=== PATIENT | female | born 1990 | race Caucasian/White ===

== ENCOUNTER 2019-07-04 14:10 | Emergency (ER) | payer MEDICARE, MEDICAID ==
[2019-07-04 15:11] VITALS: BP 125/80; PULSE 64
--- NOTE | 2019-07-04 16:47 | CR ---
Abdomen: Supine view of the abdomen was obtained as well as upright study. Gas dilated loops of small bowel are seen. No free air is seen. No acute osseous finding is seen. No abnormal calcifications are seen. Increased density is seen within the left retrocardiac region which is stable from prior chest x-ray of 09/16/14 and therefore is felt to be chronic. Impression: 1. Gas dilated small bowel loops either due to swallowed air or possibly developing small bowel obstruction. 2. No free air is seen. Other findings as noted above. Diagnostic code #3 This report was dictated in [place] Standard Time
[2019-07-04] MEDS ORDERED: Sodium Chloride 0.9% 10 ML Syringe FLUSH PRN ×2 (17:27→19:28)
[2019-07-04] MEDS ORDERED: Sodium Chloride 0.9% 1,000 ML IV ONE (17:27)
[2019-07-04] MEDS ORDERED: Ondansetron 4 MG/2 ML SDV IVPUSH ONE (17:27)
--- NOTE | 2019-07-04 17:39 | EDM.PDOC ---
ED HPI GENERAL MEDICAL PROBLEM - General Chief Complaint: Gastrointestinal Problem Stated Complaint: BOWEL PROBLEMS Time Seen by Provider: 07/04/19 16:49 Source of Information: Reports: Patient, Family (parents), RN Notes Reviewed History Limitations: Reports: No Limitations - History of Present Illness INITIAL COMMENTS - FREE TEXT/NARRATIVE: Patient is a 28-year-old female who presents to the ED with her mother and father for evaluation of some bowel issues. Patient has a history of Down syndrome but lives with her mother and father. The patient's mother notes that she has had issues with constipation her whole entire life, but they state within the last month she began to vomit at nighttime which is new for her. They try to get her in to be evaluated by her primary care provider, Dr. Clayton but were unable to acquire an appointment. The mother and father notes that the patient vomited last night, and that it was brown and look like there was a ball of stool that came up with it. Patient is not complaining of any abdominal pain, however she states that her throat hurts from vomiting. The patient does not have a history of any bowel obstructions, but the mother states that the patient has not had a good regular soft bowel movement for months. She states when she does go to the bathroom she goes in just a little bit's. Mother states that the patient has been very lethargic, she says that she sleeps quite a bit and does not wake up till mid afternoon, has maybe a fried egg sandwich and some Cheerios for food and that is about all she eats. Mother notes that the patient has lost around 20 pounds since this last fall. The mother did note that this last fall she did have a change of caliber in her stool, and she states is very thin and was patrick in color. Patient's not had any further work-up for these bowel issues. Mother notes that the patient does keep a water bottle with her, however she does not think that she drinks near enough water on a daily basis. She is not given soda for liquid intake. - Related Data Allergies Allergy/AdvReac Type Severity Reaction Status Date / Time No Known Allergies Allergy Verified 07/04/19 15:11 Home Meds: Home Meds Ascorbic Acid [Vitamin C] 1,500 - 2,000 mg PO DAILY 07/04/19 [History] Magnesium Glycinate [Mag Glycinate] 300 mg PO DAILY 07/04/19 [History] Niacinamide [Niacin] 500 mg PO DAILY 07/04/19 [History] PARoxetine [Paxil] 10 mg PO DAILY 07/04/19 [History] Thyroid,Pork [Nature-Throid] 65 mg PO DAILY 07/04/19 [History] Past Medical History HEENT History: Reports: Hard of Hearing Cardiovascular History: Reports: Congenital Septal Defect, Other (See Below) Other Cardiovascular History: ASD, VSD Gastrointestinal History: Reports: Chronic Constipation Psychiatric History: Reports: Other (See Below) Other Psychiatric History: Down's Syndrome Endocrine/Metabolic History: Reports: Other (See Below) Other Endocrine/Metabolic History: Jailene's Social & Family History - Tobacco Use Smoking Status *Q: Never Smoker - Caffeine Use Caffeine Use: Reports: None - Recreational Drug Use Recreational Drug Use: No ED ROS GENERAL - Review of Systems Review Of Systems: See Below Constitutional: Reports: Weight Loss (20lb in 6 months). Denies: Fever, Chills HEENT: Reports: Throat Pain Respiratory: Denies: Shortness of Breath, Cough Cardiovascular: Denies: Chest Pain GI/Abdominal: Reports: Constipation, Decreased Appetite, Nausea, Vomiting. Denies: Abdominal Pain, Diarrhea, Hematemesis : Denies: Dysuria ED EXAM, GI/ABD - Physical Exam Exam: See Below Exam Limited By: No Limitations General Appearance: Alert, WD/WN, No Apparent Distress Eyes: Bilateral: Normal Appearance Ears: Normal External Exam Nose: Normal Inspection Throat/Mouth: Normal Inspection, Normal Lips, Normal Teeth, Normal Gums, Normal Oropharynx, Normal Voice, No Airway Compromise Head: Atraumatic, Normocephalic Neck: Normal Inspection Respiratory/Chest: No Respiratory Distress, Lungs Clear, Normal Breath Sounds, No Accessory Muscle Use, Chest Non-Tender Cardiovascular: Normal Peripheral Pulses, Regular Rate, Rhythm, No Murmur GI/Abdominal Exam: Soft, Non-Tender, No Distention, No Mass, Abnormal Bowel Sounds (high pitched tinkling) Extremities: Normal Inspection, Normal Capillary Refill Neurological: Alert, Normal Cognition, No Motor/Sensory Deficits Psychiatric: Normal Affect, Normal Mood Skin Exam: Warm, Dry, Intact, Normal Color, No Rash Course - Vital Signs Last Recorded V/S: Last Vital Signs Temp 97.2 F 07/04/19 15:07 Pulse 64 07/04/19 15:07 Resp 16 07/04/19 15:07 BP 125/80 07/04/19 15:07 Pulse Ox 99 07/04/19 15:07 - Orders/Labs/Meds Orders: Active Orders 24 hr Category Date Time Status Peripheral IV Care [RC] . DIRECTED Care 07/04/19 17:30 Ordered Sodium Chloride 0.9% [Saline Flush] Med 07/04/19 17:27 Ordered 10 ml FLUSH ASDIRECTED PRN Sodium Chloride 0.9% [Saline Flush] Med 07/04/19 19:28 Active 10 ml FLUSH ONETIME PRN Peripheral IV Insertion Adult [OM.PC] Stat Oth 07/04/19 17:27 Ordered Medication Orders Sodium Chloride (Saline Flush) 10 ml FLUSH ASDIRECTED PRN PRN Reason: Keep Vein Open Last Admin: 07/04/19 17:43 Dose: 10 ml Sodium Chloride (Saline Flush) 10 ml FLUSH ONETIME PRN PRN Reason: IV FLUSH Last Admin: 07/04/19 19:40 Dose: 10 ml Labs: Laboratory Tests 07/04/19 07/04/19 Range/Units 17:40 17:40 WBC 8.44 (3.98-10.04) K/mm3 RBC 4.24 (3.98-5.22) M/mm3 Hgb 13.3 (11.2-15.7) gm/dl Hct 40.5 (34.1-44.9) % MCV 95.5 H (79.4-94.8) fl MCH 31.4 (25.6-32.2) pg MCHC 32.8 (32.2-35.5) g/dl RDW Std Deviation 50.9 H (36.4-46.3) fL Plt Count 209 (182-369) K/mm3 MPV 10.5 (9.4-12.3) fl Neut % (Auto) 44.9 (34.0-71.1) % Lymph % (Auto) 41.5 (19.3-51.7) % [place] % (Auto) 8.5 (4.7-12.5) % Eos % (Auto) 4.1 (0.7-5.8) Baso % (Auto) 0.9 (0.1-1.2) % Neut # (Auto) 3.78 (1.56-6.13) K/mm3 Lymph # (Auto) 3.50 (1.18-3.74) K/mm3 [place] # (Auto) 0.72 H (0.24-0.36) K/mm3 Eos # (Auto) 0.35 (0.04-0.36) K/mm3 Baso # (Auto) 0.08 (0.01-0.08) K/mm3 Sodium 138 (136-145) mEq/L Potassium 4.4 (3.5-5.1) mEq/L Chloride 105 (98-107) mEq/L Carbon Dioxide 26 (21-32) mEq/L Anion Gap 11.4 (5-15) BUN 21 H (7-18) mg/dL Creatinine 1.0 (0.55-1.02) mg/dL Est Cr Clr Drug Dosing TNP Estimated GFR (MDRD) > 60 (>60) mL/min BUN/Creatinine Ratio 21.0 H (14-18) Glucose 80 (74-106) mg/dL Calcium 9.2 (8.5-10.1) mg/dL Total Bilirubin 0.7 (0.2-1.0) mg/dL AST 18 (15-37) U/L ALT 21 (14-59) U/L Alkaline Phosphatase 48 (46-116) U/L Total Protein 8.0 (6.4-8.2) g/dl Albumin 3.5 (3.4-5.0) g/dl Globulin 4.5 gm/dL Albumin/Globulin Ratio 0.8 L (1-2) Meds: Medications Generic Name Dose Route Start Last Admin Trade Name Freq PRN Reason Stop Dose Admin Sodium Chloride 10 ml 07/04/19 17:27 07/04/19 17:43 Saline Flush FLUSH 10 ml ASDIRECTED PRN Administration Keep Vein Open Sodium Chloride 10 ml 07/04/19 19:28 07/04/19 19:40 Saline Flush FLUSH 10 ml ONETIME PRN Administration IV FLUSH Discontinued Medications Generic Name Dose Route Start Last Admin Trade Name Freq PRN Reason Stop Dose Admin Diatrizoate Meglum/Diatrizoate Sod 120 ml 07/04/19 19:28 07/04/19 19:41 Gastrografin 37% PO 07/04/19 19:29 90 ml ONETIME ONE Administration Sodium Chloride 1,000 mls @ 999 mls/hr 07/04/19 17:27 07/04/19 17:43 Normal Saline IV 07/04/19 18:27 999 mls/hr ONETIME ONE Administration Iopamidol 100 ml 07/04/19 19:28 07/04/19 19:40 Isovue-300 (61%) IVPUSH 07/04/19 19:29 100 ml ONETIME ONE Administration Ondansetron HCl 4 mg 07/04/19 17:27 07/04/19 17:43 Zofran IVPUSH 07/04/19 17:28 4 mg ONETIME ONE Administration - Re-Assessments/Exams Free Text/Narrative Re-Assessment/Exam: 07/04/19 17:42 Patient presents to the ED for the evaluation of a possible bowel obstruction versus constipation. Abdominal x-ray was obtained at time of triage, and does demonstrate gas dilated small bowel loops either due to swallowed air or possibly developing small bowel obstruction, with her symptoms I do believe that the small bowel obstruction is a possibility. I did order some labs and an abdominal pelvis CT with IV and oral contrast for further evaluation. Patient will be given some IV fluids and IV Zofran as well for management. 07/04/19 20:22 Labs are back and unremarkable, CT is also back and demonstrates no findings of a small bowel obstruction, however she does have a very small caliber of her descending colon and sigmoid colon without bowel wall thickening, findings presumably represent lack of distention. Please correlate if the patient has a history of normal stooling. There was a consolidating density within the left lower lung as mentioned on the abdominal x-ray that most likely appears chronic although difficult to completely exclude reappearance of pneumonia if the patient has infectious symptoms, she is not had any fevers or chills, or cough that would suggest a pneumonia. I do not believe it is a pneumonia and very well could be chronic changes. I did call Dr. Cisneros, our surgeon on-call and went over the CT results, and she was able to review the CT as she was in-house for another case, and states that she believes that the bowel findings are somewhat bothersome and would recommend an outpatient colonoscopy and have them follow-up with her in clinic sometime this week to have a procedure scheduled. I did go over this with the parents, and they are okay with this plan at this time. I will send the patient home with some Zofran and other recommendations. Departure - Departure Time of Disposition: 20:23 Disposition: Home, Self-Care 01 Condition: Fair Clinical Impression: Nausea and vomiting Qualifiers: Vomiting type: unspecified Vomiting Intractability: non-intractable Qualified Code(s): R11.2 - Nausea with vomiting, unspecified Constipation Qualifiers: Constipation type: unspecified constipation type Qualified Code(s): K59.00 - Constipation, unspecified - Discharge Information *PRESCRIPTION DRUG MONITORING PROGRAM REVIEWED*: No *COPY OF PRESCRIPTION DRUG MONITORING REPORT IN PATIENT [place]: No Instructions: High-Fiber Diet Referrals: Tamiko Toledo MD [Primary Care Provider] - Forms: ED Department Discharge Additional Instructions: You were evaluated in the ER today regarding your nausea and vomiting and constipation. You had some laboratory evaluation and some imaging done today, that showed there was no sign of a bowel obstruction, but does raise the findings of a small caliber of your descending colon and sigmoid colon, the surgeon on-call, Dr. Cisneros was consulted on your case, and recommends calling her office at [phone] and following up with her in clinic for a possible outpatient colonoscopy for further evaluation. The oral contrast were given today should help provide a bowel cleanse and you should have a few good bowel movements. Recommend you start taking MiraLAX on a daily basis, you may also benefit from trying to increase some probiotics into your regular diet. You were given You were given some tablets of Zofran, please take 1 tablet dissolvable under your tongue every 8 hours as needed for further nausea. Please return to the ER at any time however if your symptoms change or worsen. Sepsis Event Note - Evaluation Sepsis Screening Result: No Definite Risk - Focused Exam Vital Signs: Vital Signs Temp Pulse Resp BP Pulse Ox 07/04/19 15:07 97.2 F 64 16 125/80 99 Date Exam was Performed: 07/04/19 Time Exam was Performed: 20:22 - My Orders Last 24 Hours: My Active Orders 07/04/19 17:27 Sodium Chloride 0.9% [Saline Flush] 10 ml FLUSH ASDIRECTED PRN Peripheral IV Insertion Adult [OM.PC] Stat 07/04/19 17:30 Peripheral IV Care [RC] . DIRECTED 07/04/19 19:28 Sodium Chloride 0.9% [Saline Flush] 10 ml FLUSH ONETIME PRN - Assessment/Plan Last 24 Hours: My Active Orders 07/04/19 17:27 Sodium Chloride 0.9% [Saline Flush] 10 ml FLUSH ASDIRECTED PRN Peripheral IV Insertion Adult [OM.PC] Stat 07/04/19 17:30 Peripheral IV Care [RC] . DIRECTED 07/04/19 19:28 Sodium Chloride 0.9% [Saline Flush] 10 ml FLUSH ONETIME PRN
[2019-07-04] MEDS ORDERED: Iopamidol 612 MG/ML 100 ML Bottle IVPUSH ONE (19:28)
[2019-07-04] MEDS ORDERED: Diatrizoate Meglumine/Diatrizoate Sodium 37% 120 ML Bottle PO ONE (19:28)
--- NOTE | 2019-07-04 20:07 | CT ---
CT abdomen and pelvis Technique: Multiple axial sections were obtained from above the dome of the diaphragm inferiorly through the pubic symphysis. Intravenous and oral contrast was utilized. Consolidating density is noted within the left lung base. As noted on abdominal x-ray, this this appears to be similar to prior chest x-ray and presumably is chronic but please exclude any acute infectious symptoms for this to represent reappearance of a pneumonia. Liver contains no focal parenchymal abnormality. Spleen appears within normal limits. Small hiatal hernia is seen with mild thickening of the distal esophageal wall likely representing chronic reflux. Kidneys show symmetric contrast enhancement. Adrenal glands show no discrete nodule. Pancreas is within normal limits. Aorta shows no aneurysm. No retroperitoneal adenopathy or mesenteric abnormalities are seen. No pelvic mass or adenopathy is seen. The descending colon and sigmoid colon are extremely small in caliber. Uncertain if this is pathologic or due to complete lack of distention. I do not see any wall thickening. No pelvic mass or adenopathy is appreciated. No free fluid or inflammatory change is noted. Appendix not visualized with certainty. Delayed images shows a small amount of contrast within the bladder. Bone window settings were reviewed which appear within normal limits for the patient's age. Impression: 1. No findings of small bowel obstruction. 2. Very small caliber of descending colon and sigmoid colon without bowel wall thickening. Findings presumably represent lack of distention. Please correlate that patient has history of normal stooling. 3. Consolidating density within left lower lung. As mentioned on abdominal x-ray, this is most likely chronic although difficult to completely exclude reappearance of pneumonia if patient has infectious symptoms. 4. Other findings as noted above. Diagnostic code #3 Study was dictated in [place] Standard Time
== END 2019-07-04 20:35 | disposition home or self-care (01) ==
LOC: JD.ED 14:10
DX: R11.2 Nausea with vomiting, unspecified (principal); K59.00 Constipation, unspecified
CPT/HCPCS: 36415; 74019; 74177; 80053; 85025; 96361; 96374; 99284; J2405; J7030; Q9963; Q9967; 99283

== ENCOUNTER 2019-07-13 08:55 | Day surgery (SDC) | payer MEDICARE, MEDICAID ==
[~2019-07-13 08:55] MED LIST: Lactated Ringers 1,000 ML IV SCH; Lidocaine 1%/Sod Bicarbonate in NS 8.4% 1 ML Syringe IDERM PRN; Sodium Chloride 0.9% 10 ML Syringe FLUSH PRN
[2019-07-13] MEDS ORDERED: Midazolam 1 MG/ML 2 ML SDV ONE (10:01)
[2019-07-13] MEDS ORDERED: Lidocaine 1% 4 ML ONE (10:01)
[2019-07-13] MEDS ORDERED: Propofol 200 MG/20 ML SDV ONE (10:01)
[2019-07-13] MEDS ORDERED: fentaNYL 100 MCG/2 ML SDV ONE (10:03)
[2019-07-13] MEDS ORDERED: Lidocaine 1% 2 ML ONE (10:11)
--- NOTE | 2019-07-13 10:36 | PCM.PREANE ---
Preanesthetic Assessment - Anesthesia/Transfusion/Family Hx Anesthesia History: Prior Anesthesia Without Reaction Family History of Anesthesia Reaction: No - Review of Systems General: No Symptoms Pulmonary: No Symptoms Cardiovascular: No Symptoms, Other (History of small PDA, VSD, ASD with small left to right shunt, preserved EF of 75%, stable since . Follows with cardiology every 2 years. ) Gastrointestinal: Nausea (None recently, appears to dry heave, not sure if it is a nervous tic or nausea. ) Neurological: No Symptoms (Pleasent and cooperative.), Other (Nervous Tics, Trisomy 21) Other: Reports: Thyroid Problems ([place]), Depression, Anxiety - Physical Assessment NPO Status Date: 07/12/19 NPO Status Time: 21:30 Vital Signs: Last Vital Signs Temp 36.3 C 07/13/19 09:15 Pulse 66 07/13/19 09:15 Resp 16 07/13/19 09:15 BP 111/61 07/13/19 09:15 Pulse Ox 97 07/13/19 09:15 Height: 1.35 m Weight: 48.534 kg ASA Class: 3 Mental Status: Alert & Oriented x3 Airway Class: Mallampati = 2 Dentition: Reports: Normal Dentition, Caries Thyro-Mental Finger Breadths: 2 Mouth Opening Finger Breadths: 3 ROM/Head Extension: Other (Cervical Spine xrays have been done in the past per her parents with no instability noted.) Lungs: Clear to Auscultation, Normal Respiratory Effort Cardiovascular: Regular Rate, Regular Rhythm, Murmurs (+) - Imaging/EKG Impressions: Sinus Rhythm with PVC at 66 bpm Probable left atrial enlargement. - Allergies Allergies/Adverse Reactions: Allergies Allergy/AdvReac Type Severity Reaction Status Date / Time No Known Allergies Allergy Verified 07/12/19 15:55 - Acknowledgements Anesthesia Type Planned: MAC Pt an Appropriate Candidate for the Planned Anesthesia: Yes Alternatives and Risks of Anesthesia Discussed w Pt/Guardian: Yes Pt/Guardian Understands and Agrees with Anesthesia Plan: Yes PreAnesthesia Questionnaire HEENT History: Reports: Cataract, Hard of Hearing Cardiovascular History: Reports: Congenital Septal Defect, Heart Murmur, [place], Other (See Below) Other Cardiovascular History: ASD, VSD Respiratory History: Reports: None Gastrointestinal History: Reports: Chronic Constipation Genitourinary History: Reports: None [employer] History: Reports: None Musculoskeletal History: Reports: None Neurological History: Reports: None Psychiatric History: Reports: Anxiety, Depression, Other (See Below) Other Psychiatric History: Down's Syndrome, tc disorder Endocrine/Metabolic History: Reports: Other (See Below) Other Endocrine/Metabolic History: Jailene's, elevated TSH Hematologic History: Reports: None Immunologic History: Reports: None Oncologic (Cancer) History: Reports: None Dermatologic History: Reports: None - Infectious Disease History Infectious Disease History: Reports: None - Past Surgical History Head Surgeries/Procedures: Reports: None HEENT Surgical History: Reports: Cataract Surgery, Myringotomy w Tube(s) Cardiovascular Surgical History: Reports: None Respiratory Surgical History: Reports: None GI Surgical History: Reports: None Female Surgical History: Reports: None Male Surgical History: Reports: None Endocrine Surgical History: Reports: None Neurological Surgical History: Reports: None Musculoskeletal Surgical History: Reports: None Oncologic Surgical History: Reports: None Dermatological Surgical History: Reports: None - SUBSTANCE USE Smoking Status *Q: Never Smoker Recreational Drug Use History: No - HOME MEDS Home Medications: Home Meds Ascorbic Acid [Vitamin C] 1,500 - 2,000 mg PO DAILY 07/04/19 [History] Magnesium Glycinate [Mag Glycinate] 300 mg PO DAILY 07/04/19 [History] Niacinamide [Niacin] 500 mg PO DAILY 07/04/19 [History] Ondansetron [Zofran ODT] 4 mg PO Q8H PRN #15 tab.dis 07/04/19 [Rx] PARoxetine [Paxil] 10 mg PO DAILY 07/04/19 [History] Thyroid,Pork [Nature-Throid] 65 mg PO DAILY 07/04/19 [History] Lactobacillus Combination No.4 [Probiotic] 1 cap PO DAILY 07/12/19 [History] - CURRENT (IN HOUSE) MEDS Current Meds: Current Medications Lactated Ringer's (Ringers, Lactated) 1,000 mls @ 125 mls/hr IV ASDIRECTED LISA Stop: 07/13/19 23:00 Lidocaine/Sodium Bicarbonate (Buffered Lidocaine 1% In Ns 8.4%) 0.25 ml IDERM ONETIME PRN PRN Reason: Prior to IV Start Stop: 07/13/19 18:00 Sodium Chloride (Saline Flush) 10 ml FLUSH ASDIRECTED PRN PRN Reason: Keep Vein Open Stop: 07/13/19 18:00 Discontinued Medications Fentanyl (Sublimaze) Confirm Administered Dose 100 mcg .ROUTE .STK-MED ONE Stop: 07/13/19 10:04 Lidocaine HCl (Xylocaine-Mpf 1%) Confirm Administered Dose 4 mls @ as directed .ROUTE .STK-MED ONE Stop: 07/13/19 10:02 Lidocaine HCl (Xylocaine-Mpf 1%) Confirm Administered Dose 2 mls @ as directed .ROUTE .STK-MED ONE Stop: 07/13/19 10:12 Midazolam HCl (Versed 1 Mg/Ml) Confirm Administered Dose 2 mg .ROUTE .STK-MED ONE Stop: 07/13/19 10:02 Propofol (Diprivan 20 Ml) Confirm Administered Dose 400 mg .ROUTE .STK-MED ONE Stop: 07/13/19 10:02
[2019-07-13] MEDS ORDERED: Simethicone Drops 40 MG/0.6 ML 30 ML Bottle ONE (11:08)
[2019-07-13] MEDS ORDERED: Glycopyrrolate 0.2 MG/ML SDV ONE (11:27)
--- NOTE | 2019-07-13 11:47 | PCM48HPAN ---
Post Anesthesia Note - EVALUATION WITHIN 48HRS OF ANESTHETIC Vital Signs in Normal Range: Yes Patient Participated in Evaluation: Yes Respiratory Function Stable: Yes Airway Patent: Yes Cardiovascular Function Stable: Yes Hydration Status Stable: Yes Pain Control Satisfactory: Yes Nausea and Vomiting Control Satisfactory: Yes Mental Status Recovered: Yes Vital Signs: Last Vital Signs Temp 36.3 C 07/13/19 09:15 Pulse 66 07/13/19 09:15 Resp 16 07/13/19 09:15 BP 111/61 07/13/19 09:15 Pulse Ox 97 07/13/19 09:15 1137 95/61 83 14 99% 97.1F
--- NOTE | 2019-07-13 11:51 | PCM.PRNOTE ---
- Free Text/Narrative Note: Operative Report Date of Procedure: July 13, 2019 Pre Op Diagnosis: Nausea, vomiting, change in stool caliber Post-Op Diagnosis: Vame Operative Procedures: 1. EGD with biopsy 2. Colonoscopy to the cecum with biopsy Primary Surgeon: Amelie Hickey MD Anesthesia Provider: Taylor Ziegler CRNA Anesthesia Technique: MAC IV Fluid Replacement, Intraop: 800cc crystalloid Output, Urine Amount: 0cc EBL in mLs: 0cc Findings: 1. Distal Esophagitis 2. irregular GE junction 3. Gastritis 4. Duodenitis Specimens: 1. Distal esophagus 2. GE junction 3. Gastric antrum 4. Duodenum 5. Transverse colon biopsy 6. Rectal biopsy Drain/Tubes: None Indication: The patient is a 28-year-old lady who presented to the clinic with persistent symptoms of nausea, vomiting, and thin, ribbon-like stools. The patient's parents reported symptoms of unintentional weight loss symptoms the onset of symptoms. The patient was consented for a diagnostic EGD and colonoscopy. Risks of bleeding, and perforation were discussed, and the patient agreed to the risks and wished to proceed. Description of the procedure: The patient was taken back to the endoscopy suite, and placed in the left lateral decubitus position. A bite block was placed. The patient was sedated with MAC anesthesia. The Olympus video endoscope was inserted into the oropharynx and guided under direct vision into the esophagus, stomach, and duodenum. The duodenal bulb showed villous flattening as well as increased erythema. Biopsies were taken here with the cold biopsy forceps. The second portion of the duodenum w remarkable. The scope was withdrawn to the gastric antrum, each was inspected and cold biopsy forceps were used to take tissue samples for H. pylori. Was evidence of gastritis with stigmata of recent bleeding. The scope was then retroflexed. There a small amount of bilious fluid , which was suctioned. Very shallow erosions seen in the gastric antrum, but no ulcers were noted. The scope was withdrawn to the esophagus. The GE junction had a very irregular appearance with heaped up tissue. Biopsies were taken with a cold biopsy forceps in 4 quadrants. There was distal esophagitis noted with changes in 4 separate mucosal folds with superficial erosion. The endoscope was then withdrawn. Next, anorectal examination was performed. No lesions, masses or hemorrhoids were noted externally or on palpation. The scope was placed into the rectum and advanced to cecum. Upon reaching the cecum, and the patients cecum was entered. There was mild tortuosity of the colon. The ileocecal valve was well visualized and the appendiceal orifice identified. At this point, the scope was slowly withdrawn, paying attention to the mucosa. The patient had excellent bowel prep, greater than 95% of the mucosa was visible. Common the lymphatic tissue was noted in the transverse colon, and biopsies were taken using a cold biopsy forceps. In the rectum, tissue in all biopsies were taken with the cold biopsy forceps. The scope was retroflexed and some normal-appearing hemorrhoidal tissue was noted. The scope was placed back in the lumen and excess air was aspirated. The scope was removed. The patient tolerated the procedure very well. Complications: None apparent Condition: The patient was transported to PACU in stable condition. Amelie Hickey MD General Surgery
--- NOTE | 2019-07-13 11:51 | PCM.OPNOTE ---
- General Post-Op/Procedure Note Date of Surgery/Procedure: 07/13/19 Operative Procedure(s): EGD and colonoscopy Findings: 1. Distal Esophagitis 2. irregular GE junction 3. Gastritis 4. Duodenitis Pre Op Diagnosis: Nausea, vomiting, change in stool caliber Post-Op Diagnosis: same Anesthesia Technique: MAC Primary Surgeon: Amelie Hickey Anesthesia Provider: Taylor Zimmerman Pathology: 1. Duodenum biopsy 2. Gastric antrum biopsy 3. GE junction biopsy 4. Distal esophagus biopsy 5. Transverse colon biopsy 6. Rectal biopsy Fluid Replacement, Intraop: 800 Output, Urine Amount: 0 EBL in mLs: 0 Complications: None apparent Condition: Good
[2019-07-13] MEDS ORDERED: Acetaminophen Soln 650 MG/20.3 ML UD Cup PO PRN (12:07)
[2019-07-13 13:19] VITALS: BP 96/52; PULSE 81
== END 2019-07-13 13:05 | disposition home or self-care (01) ==
LOC: JD.SDS 08:55
PROVIDERS: ATTEND Surgery
DX: K29.50 Unspecified chronic gastritis without bleeding (principal); K29.80 Duodenitis without bleeding; K20.9 Esophagitis, unspecified; K25.9 Gastric ulcer, unspecified as acute or chronic, without hemorrhage or perforation; Q43.8 Other specified congenital malformations of intestine; K64.9 Unspecified hemorrhoids; Q90.9 Down syndrome, unspecified; Q21.1 Atrial septal defect; I25.2 Old myocardial infarction; Q21.0 Ventricular septal defect; F41.9 Anxiety disorder, unspecified; F32.9 Major depressive disorder, single episode, unspecified; E06.3 Autoimmune thyroiditis; Z79.899 Other long term (current) drug therapy
CPT/HCPCS: 43239; 45380; 93005; A9270; J2001; J2250; J2704; J3010; J3490; J7120; 00813; 88305; 88342

== ENCOUNTER 2019-09-15 13:13 | Observation (INO) | payer MEDICARE, MEDICAID ==
[2019-09-15] MEDS ORDERED: Sodium Chloride 0.9% 10 ML Syringe FLUSH PRN (13:33)
[2019-09-15] MEDS ORDERED: Sodium Chloride 0.9% 1,000 ML IV ONE (13:34)
[2019-09-15] MEDS ORDERED: Metoclopramide 10 MG/2 ML SDV IVPUSH ONE (13:36)
--- NOTE | 2019-09-15 14:10 | EDM.PDOC ---
ED HPI GENERAL MEDICAL PROBLEM - General Chief Complaint: Gastrointestinal Problem Stated Complaint: STOMACH ISSUES Time Seen by Provider: 09/15/19 13:22 Source of Information: Reports: Patient, Family (mother), Old Records (visit from 07/04/19) History Limitations: Reports: No Limitations - History of Present Illness INITIAL COMMENTS - FREE TEXT/NARRATIVE: Patient is a 29-year-old female who presents to the ED for ongoing GI issues. The patient does have a history of Down syndrome, and lives with her mother and father. Mother notes that the patient has been ill since June, was seen in this ER on July 04, had abdominal x-rays and a CT, that demonstrated a slight thickening of the bowel. Patient did have a follow-up EGD and colonoscopy, and everything was within normal limits. Patient has been doctoring with Dr. Clayton from [facility] for ongoing symptoms. Mother states that the patient eats small amounts of soft foods like oatmeal, yogurt, ice cream, but has not eaten a real solid meal for quite some time. They note that she has lost 20 pounds over the last 6 weeks. The patient was in the clinic at [facility] twice this last week for IV fluids, and antinausea medications. 1 on Thursday and 1 time on Thursday. This helped symptoms for a little while, but then the patient is right back complaining shortly after they leave. Mother states that she tried making a pancake for her, that the patient chewed it up and then spit it out. Mother states that the child has not been able to keep any sort of solid food down. Mother states that the child did have a bowel movement 2 days ago, these were very small in nature. Mother notes that the patient has been getting up some stringy brown stuff in her emesis as well, but denies any sort of obvious blood. Patient is not complaining of any abdomen pain. Mother states that the patient has not had any fever or chills, shortness of breath, chest pain or cough. Dr. Clayton did try her on some outpatient Zofran and Ativan for management, but this did not seem to help much. - Related Data Allergies Allergy/AdvReac Type Severity Reaction Status Date / Time No Known Allergies Allergy Verified 07/12/19 15:55 Home Meds: Home Meds Ondansetron [Zofran ODT] 4 mg PO Q8H PRN #15 tab.dis 07/04/19 [Rx] Thyroid,Pork [Nature-Throid] 65 mg PO DAILY 07/04/19 [History] Omeprazole 20 mg PO ACBREAKFAST 30 Days #30 cap.sr 07/13/19 [Rx] Gabapentin [Neurontin] 300 mg PO DAILY 09/15/19 [History] Past Medical History HEENT History: Reports: Cataract, Hard of Hearing Cardiovascular History: Reports: Congenital Septal Defect, Heart Murmur, GA, Other (See Below) Other Cardiovascular History: ASD, VSD Gastrointestinal History: Reports: Chronic Constipation Psychiatric History: Reports: Anxiety, Depression, Other (See Below) Other Psychiatric History: Down's Syndrome, tc disorder Endocrine/Metabolic History: Reports: Other (See Below) Other Endocrine/Metabolic History: Jailene's, elevated TSH - Past Surgical History HEENT Surgical History: Reports: Cataract Surgery, Myringotomy w Tube(s) Social & Family History - Tobacco Use Second Hand Smoke Exposure: No - Caffeine Use Caffeine Use: Reports: None ED ROS GENERAL - Review of Systems Review Of Systems: Comprehensive ROS is negative, except as noted in HPI. ED EXAM, GI/ABD - Physical Exam Exam: See Below Exam Limited By: No Limitations General Appearance: Alert, WD/WN, No Apparent Distress (pt has fits where it appears that she is nauseous, happens every few minutes) Ears: Normal External Exam Nose: Normal Inspection Throat/Mouth: Normal Inspection, Normal Lips, Normal Teeth, Normal Gums, Normal Oropharynx, Normal Voice, No Airway Compromise Head: Atraumatic, Normocephalic Neck: Normal Inspection Respiratory/Chest: No Respiratory Distress, Lungs Clear, Normal Breath Sounds, No Accessory Muscle Use, Chest Non-Tender Cardiovascular: Normal Peripheral Pulses, Regular Rate, Rhythm, No Murmur GI/Abdominal Exam: Soft, Non-Tender, No Distention, No Mass, Abnormal Bowel Sounds (hypoactive tones x 4 quadrants) Extremities: Normal Inspection, Normal Capillary Refill Neurological: Alert, Oriented, Normal Cognition, No Motor/Sensory Deficits Psychiatric: Normal Affect, Normal Mood Skin Exam: Warm, Dry, Intact, Normal Color, No Rash Course - Vital Signs Last Recorded V/S: Last Vital Signs Temp 97.5 F 09/15/19 13:29 Pulse 82 09/15/19 13:29 Resp 20 09/15/19 13:29 BP 83/55 L 09/15/19 13:29 Pulse Ox 95 09/15/19 13:29 - Orders/Labs/Meds Orders: Active Orders 24 hr Category Date Time Status Peripheral IV Care [RC] . DIRECTED Care 09/15/19 13:34 Active Sodium Chloride 0.9% [Saline Flush] Med 09/15/19 13:33 Active 10 ml FLUSH ASDIRECTED PRN Peripheral IV Insertion Adult [OM.PC] Stat Oth 09/15/19 13:33 Ordered Medication Orders Sodium Chloride (Saline Flush) 10 ml FLUSH ASDIRECTED PRN PRN Reason: Keep Vein Open Last Admin: 09/15/19 14:31 Dose: 10 ml Labs: Laboratory Tests 09/15/19 09/15/19 Range/Units 14:25 14:25 WBC 4.54 (3.98-10.04) K/mm3 RBC 4.39 (3.98-5.22) M/mm3 Hgb 13.3 (11.2-15.7) gm/dl Hct 40.1 (34.1-44.9) % MCV 91.3 D (79.4-94.8) fl MCH 30.3 (25.6-32.2) pg MCHC 33.2 (32.2-35.5) g/dl RDW Std Deviation 44.7 (36.4-46.3) fL Plt Count 159 L (182-369) K/mm3 MPV 11.1 (9.4-12.3) fl Neutrophils % (Manual) 32 L (40-60) % Band Neutrophils % 1 (0-10) % Lymphocytes % (Manual) 45 H (20-40) % Atypical Lymphs % 0 % Monocytes % (Manual) 9 (2-10) % Eosinophils % (Manual) 11 H (0.7-5.8) % Basophils % (Manual) 2 H (0.1-1.2) Platelet Estimate Adequate RBC Morph Comment Normal Sodium 143 (136-145) mEq/L Potassium 3.5 (3.5-5.1) mEq/L Chloride 105 (98-107) mEq/L Carbon Dioxide 24 (21-32) mEq/L Anion Gap 17.5 H (5-15) BUN 8 (7-18) mg/dL Creatinine 0.9 (0.55-1.02) mg/dL Est Cr Clr Drug Dosing 64.85 mL/min Estimated GFR (MDRD) > 60 (>60) mL/min BUN/Creatinine Ratio 8.9 L (14-18) Glucose 72 L (74-106) mg/dL Calcium 8.7 (8.5-10.1) mg/dL Total Bilirubin 0.4 (0.2-1.0) mg/dL AST 22 (15-37) U/L ALT 24 (14-59) U/L Alkaline Phosphatase 45 L (46-116) U/L Total Protein 7.1 (6.4-8.2) g/dl Albumin 3.2 L (3.4-5.0) g/dl Globulin 3.9 gm/dL Albumin/Globulin Ratio 0.8 L (1-2) Meds: Medications Generic Name Dose Route Start Last Admin Trade Name Freq PRN Reason Stop Dose Admin Sodium Chloride 10 ml 09/15/19 13:33 09/15/19 14:31 Saline Flush FLUSH 10 ml ASDIRECTED PRN Administration Keep Vein Open Discontinued Medications Generic Name Dose Route Start Last Admin Trade Name Freq PRN Reason Stop Dose Admin Sodium Chloride 1,000 mls @ 999 mls/hr 09/15/19 13:34 09/15/19 14:30 Normal Saline IV 09/15/19 14:34 999 mls/hr ONETIME ONE Administration Metoclopramide HCl 10 mg 09/15/19 13:36 09/15/19 14:30 Reglan IVPUSH 09/15/19 13:37 10 mg ONETIME ONE Administration Pantoprazole Sodium 40 mg 09/15/19 15:12 09/15/19 15:36 Protonix Iv IVPUSH 09/15/19 15:13 40 mg ONETIME ONE Administration - Re-Assessments/Exams Free Text/Narrative Re-Assessment/Exam: 09/15/19 14:15 Patient presents to the ED for the evaluation of her ongoing GI issues. I have ordered an IV to be placed with fluids, some Reglan for nausea management, basic labs include CBC and CMP. Dr. Clayton did call over, for tentative hospital admission for further work-up. Have tried to contact our hospitalist, Dr. Cantu, and have not heard back from her at this time, will try to call again in the next few minutes to discuss the case with her to see if she feels it very appropriate to keep her here versus send her to [place] for further GI work-up. Mother did not want any imaging until the case could be stopped with the hospitalist. The patient is not actively vomiting at this time, and is in no obvious distress. 09/15/19 15:03 I did discuss the case with Dr. Cantu, and she thinks that the patient would benefit with more a GI workup, I called Dr. Carpenter and states the the gastric emptying study and/or manometry can be done on more of an outpatient basis, but does think that the patient would benefit from hospital admission for fluids and anti-emetics. He suggests the possibility of a CT enterography for further evaluation. I have been in contact with our radiology dept for these services. Dr. Cantu states that if we have the capabilities of the enterography, that she would take for hospital admission, but suggests calling back to [facility] for hospitalist admission if not. I am awaiting call back from radiology for determination. I did push our last images and faxed last visit with same day surgery notes from Dr. Cisneros, and Dr. Clayton's most recent visits to [facility] already. 09/15/19 15:50 Radiology did confirm that we are able to do a CT enterography study at this time. However the patient is sleeping, and I feel she is still too nauseous to be able to drink the amount of contrast as needed. I did discuss this with Dr. Cantu, and she states that she will admit her at this time, with the possibility of doing the CT study in the morning, but radiology cautions to have the patient be n.p.o. after midnight. Mother is fine with this plan at this time. Dr. Cantu will see the patient when she is admitted to the floor. Departure - Departure Time of Disposition: 15:51 Disposition: Refer to Observation Condition: Fair Clinical Impression: Nausea and vomiting in adult patient - Discharge Information *PRESCRIPTION DRUG MONITORING PROGRAM REVIEWED*: No *COPY OF PRESCRIPTION DRUG MONITORING REPORT IN PATIENT [place]: No Referrals: Tamiko Toledo MD [Primary Care Provider] - Forms: ED Department Discharge Sepsis Event Note - Evaluation Sepsis Screening Result: No Definite Risk - Focused Exam Vital Signs: Vital Signs Temp Pulse Resp BP Pulse Ox 04/16/20 13:29 97.5 F 82 20 83/55 L 95 Date Exam was Performed: 09/15/19 Time Exam was Performed: 15:50 - My Orders Last 24 Hours: My Active Orders 09/15/19 13:33 Sodium Chloride 0.9% [Saline Flush] 10 ml FLUSH ASDIRECTED PRN Peripheral IV Insertion Adult [OM.PC] Stat 09/15/19 13:34 Peripheral IV Care [RC] . DIRECTED - Assessment/Plan Last 24 Hours: My Active Orders 09/15/19 13:33 Sodium Chloride 0.9% [Saline Flush] 10 ml FLUSH ASDIRECTED PRN Peripheral IV Insertion Adult [OM.PC] Stat 09/15/19 13:34 Peripheral IV Care [RC] . DIRECTED
[2019-09-15] MEDS ORDERED: Pantoprazole 40 MG Vial IVPUSH ONE (15:12)
[2019-09-15] MEDS: Dextrose 5%-Lactated Ringers 1,000 ML IV SCH (17:36)
[2019-09-15] MEDS ORDERED: Diphenhydramine/Lidocaine/MagAl/Simethicone 119 ML Bottle PO STA (17:40)
[2019-09-15] MEDS: Ondansetron 4 MG/2 ML SDV IV PRN (17:46)
--- NOTE | 2019-09-15 18:30 | PCM.HP.2 ---
H&P History of Present Illness - General Date of Service: 09/15/19 Admit Problem/Dx: Admission Diagnosis/Problem Admission Diagnosis/Problem Intractable vomiting with nausea - History of Present Illness Initial Comments - Free Text/Narative: This is a 29 year old female with past medical history of Downs syndrome who comes to the ED brought in by mom for inability to tolerate any PO intake and constant dry heaving. As per mom patient has been having this problem since May. She noticed at that time that patient was refusing to eat certain foods and having post prandial vomiting. Eventually she came to the ED and was seen by surgery who performed an EGD and Colonoscopy, found erosive esophagitis She was then started on omeprazole, which mom states did not change he symptoms. She has continued to have these intermittent episodes of dry heaving and vomiting, complaining at times she feels like she has something stuck in her throat and once she is able to throw up some mucus states that the symptoms have resolved. Mom states patient has had significant weight loss since this started, approximately 20lbs - Related Data Allergies/Adverse Reactions: Allergies Allergy/AdvReac Type Severity Reaction Status Date / Time No Known Allergies Allergy Verified 09/15/19 17:02 Home Medications: Home Meds Thyroid,Pork [Nature-Throid] 65 mg PO DAILY 07/04/19 [History] Gabapentin [Neurontin] 300 mg PO BID 09/15/19 [History] LORazepam [Ativan] 0.5 mg PO QID PRN 09/15/19 [History] Lactobacillus Combination No.4 [Probiotic] 1 each PO DAILY 09/15/19 [History] Niacinamide [Niacin] 500 mg PO DAILY 09/15/19 [History] Omeprazole 20 mg PO BIDMEALS 09/15/19 [History] Ondansetron [Zofran ODT] 4 mg PO Q6HR PRN 09/15/19 [History] Past Medical History HEENT History: Reports: Cataract, Hard of Hearing Cardiovascular History: Reports: Afib, Congenital Septal Defect, Heart Murmur, Other (See Below) Other Cardiovascular History: ASD, VSD Respiratory History: Reports: None Gastrointestinal History: Reports: Chronic Constipation, GERD Other Gastrointestinal History: extreme acid reflux Genitourinary History: Reports: None EXAMINATION SUPERVISOR History: Reports: None Musculoskeletal History: Reports: None Neurological History: Reports: None Psychiatric History: Reports: Anxiety, Depression, Other (See Below) Other Psychiatric History: Down's Syndrome, tc disorder Endocrine/Metabolic History: Reports: Other (See Below) Other Endocrine/Metabolic History: Jailnee's, elevated TSH Hematologic History: Reports: None Immunologic History: Reports: None Oncologic (Cancer) History: Reports: None Dermatologic History: Reports: None - Infectious Disease History Infectious Disease History: Reports: None - Past Surgical History Head Surgeries/Procedures: Reports: None HEENT Surgical History: Reports: Cataract Surgery, Myringotomy w Tube(s) Respiratory Surgical History: Reports: None Female Surgical History: Reports: None Neurological Surgical History: Reports: None Musculoskeletal Surgical History: Reports: None Oncologic Surgical History: Reports: None Dermatological Surgical History: Reports: None Social & Family History - Family History Family Medical History: Noncontributory - Tobacco Use Smoking Status *Q: Never Smoker Second Hand Smoke Exposure: No - Caffeine Use Caffeine Use: Reports: None - Recreational Drug Use Recreational Drug Use: No H&P Review of Systems - Review of Systems: Review Of Systems: Unable To Obtain Reason Not Obtained: Intelectual disability Exam - Exam Exam: See Below - Vital Signs Vital Signs: Last Vital Signs Temp 97.7 F 09/15/19 16:59 Pulse 72 09/15/19 16:59 Resp 20 09/15/19 16:59 BP 102/57 L 09/15/19 16:59 Pulse Ox 100 09/15/19 16:59 Weight: 45.949 kg - Exam General: Alert, Oriented, Cooperative (patient in no distress when i arrived in room resting comfortably in bed ) HEENT: Mucosa Moist & [place] Neck: Supple Lungs: Clear to Auscultation, Normal Respiratory Effort. No: Crackles, Rales, Rhonchi, Rub, Stridor, Wheezing Cardiovascular: Regular Rate, Regular Rhythm, Systolic Murmur. No: Diastolic Murmur, Rubs, Gallop/S3, Gallop/S4 GI/Abdominal Exam: Normal Bowel Sounds, Soft, Non-Tender, No Organomegaly, No Distention Extremities: Normal Inspection, Normal Range of Motion, Non-Tender, No Pedal Edema, Normal Capillary Refill Skin: Warm, Dry - Patient Data Result Diagrams: 09/16/19 05:45 09/16/19 05:45 Sepsis Event Note - Evaluation Sepsis Screening Result: No Definite Risk - Focused Exam Vital Signs: Vital Signs Temp Temp Pulse Pulse Resp BP BP 09/15/19 16:59 97.7 F 72 20 102/57 L 09/15/19 16:45 83 16 09/15/19 13:29 97.5 F 82 20 83/55 L BP Pulse Ox 09/15/19 16:59 100 09/15/19 16:45 101/70 94 L 09/15/19 13:29 95 Date Exam was Performed: 09/16/19 Time Exam was Performed: 15:30 - Problem List (1) Nausea and vomiting SNOMED Code(s): 86564475 ICD Code: R11.2 - NAUSEA WITH VOMITING, UNSPECIFIED Status: Acute Current Visit: No Qualifiers: Vomiting type: unspecified Vomiting Intractability: non-intractable Qualified Code(s): R11.2 - Nausea with vomiting, unspecified (2) Erosive esophagitis SNOMED Code(s): 96198816 ICD Code: K22.10 - ULCER OF ESOPHAGUS WITHOUT BLEEDING Status: Acute Current Visit: Yes (3) Chronic constipation SNOMED Code(s): 006230511 ICD Code: K59.09 - OTHER CONSTIPATION Status: Acute Current Visit: Yes (4) Hypothyroidism SNOMED Code(s): 51290987 ICD Code: E03.9 - HYPOTHYROIDISM, UNSPECIFIED Status: Acute Current Visit : Yes (5) Down syndrome SNOMED Code(s): 13547143 ICD Code: Q90.9 - DOWN SYNDROME, UNSPECIFIED Status: Acute Current Visit : Yes Problem List Initiated/Reviewed/Updated: Yes Assessment/Plan Comment:: Nausea and vomiting Unable to tolerate oral intake as per mom the past week Significant weight loss in past couple of months No significant electrolyte abnormalities Upon evaluation this appears to be a significant psychiatric component Patient forcefully continues to stick out her tongue until she starts dry heaving--> organic causes will be ruled out prior to confirming this diagnoses Prior EGD in July with erosive esophagitis, Treated with omeprazole, mom states it was not successful Emergency department consulted GI specialist who recommended CT enterography PLAN D5LR for IV fluid repletion Monitor electrolytes Scheduled Zofran CT enterography in the morning Nothing by mouth after midnight Dietary consult Hypothyroidism No acute issues PLAN Continue home meds once able to tolerate PO PROPHYLAXIS DVTambulation to be encouraged GInot indicated CODE STATUS: FULL CODE DISPOSITION Patient will be admitted for IV fluid repletion and CT enterography in the morning as well as scheduled zofran, dietary evaluation and diet advancement as tolerated - Mortality Measure Prognosis:: Good
[2019-09-16] MEDS: Ondansetron 4 MG/2 ML SDV IV PRN (09:16)
--- NOTE | 2019-09-16 09:16 | PCM.PN ---
- General Info Date of Service: 09/16/19 Admission Dx/Problem (Free Text): Admission Diagnosis/Problem Admission Diagnosis/Problem Intractable vomiting with nausea Subjective Update: Continues to have vomiting Last BM on 09/15/19 No fevers or signs of active infection Unable to obtain ROS due to patients baseline mental status. Mother denies any new symptoms or changes. Functional Status: Reports: Pain Controlled, Ambulating, Urinating. Denies: Tolerating Diet (NPO), New Symptoms - Review of Systems General: Denies: Fever Pulmonary: Denies: Cough Gastrointestinal: Reports: Vomiting, Other (Gagging that waxes and wanes ). Denies: Abdominal Pain - Patient Data Vitals - Most Recent: Last Vital Signs Temp 98.2 F 09/16/19 08:09 Pulse 74 09/16/19 08:09 Resp 16 09/16/19 08:09 BP 111/75 09/16/19 08:09 Pulse Ox 100 09/16/19 08:09 Weight - Most Recent: 101 lb 9.6 oz I&O - Last 24 Hours: Intake & Output 09/15/19 09/16/19 09/16/19 22:59 06:59 14:59 Intake Total 581 Output Total 350 Balance 231 Lab Results Last 24 Hours: Laboratory Results - last 24 hr 09/15/19 09/15/19 09/15/19 Range/Units 14:25 14:25 18:15 WBC 4.54 (3.98-10.04) K/mm3 RBC 4.39 (3.98-5.22) M/mm3 Hgb 13.3 (11.2-15.7) gm/dl Hct 40.1 (34.1-44.9) % MCV 91.3 D (79.4-94.8) fl MCH 30.3 (25.6-32.2) pg MCHC 33.2 (32.2-35.5) g/dl RDW Std Deviation 44.7 (36.4-46.3) fL Plt Count 159 L (182-369) K/mm3 MPV 11.1 (9.4-12.3) fl Neut % (Auto) (34.0-71.1) % Lymph % (Auto) (19.3-51.7) % [place] % (Auto) (4.7-12.5) % Eos % (Auto) (0.7-5.8) Baso % (Auto) (0.1-1.2) % Neut # (Auto) (1.56-6.13) K/mm3 Lymph # (Auto) (1.18-3.74) K/mm3 [place] # (Auto) (0.24-0.36) K/mm3 Eos # (Auto) (0.04-0.36) K/mm3 Baso # (Auto) (0.01-0.08) K/mm3 Neutrophils % (Manual) 32 L (40-60) % Band Neutrophils % 1 (0-10) % Lymphocytes % (Manual) 45 H (20-40) % Atypical Lymphs % 0 % Monocytes % (Manual) 9 (2-10) % Eosinophils % (Manual) 11 H (0.7-5.8) % Basophils % (Manual) 2 H (0.1-1.2) Manual Slide Review Platelet Estimate Adequate RBC Morph Comment Normal Sodium 143 (136-145) mEq/L Potassium 3.5 (3.5-5.1) mEq/L Chloride 105 (98-107) mEq/L Carbon Dioxide 24 (21-32) mEq/L Anion Gap 17.5 H (5-15) BUN 8 (7-18) mg/dL Creatinine 0.9 (0.55-1.02) mg/dL Est Cr Clr Drug Dosing 64.85 mL/min Estimated GFR (MDRD) > 60 (>60) mL/min BUN/Creatinine Ratio 8.9 L (14-18) Glucose 72 L (74-106) mg/dL Calcium 8.7 (8.5-10.1) mg/dL Phosphorus (2.6-4.7) mg/dL Magnesium (1.8-2.4) mg/dl Total Bilirubin 0.4 (0.2-1.0) mg/dL AST 22 (15-37) U/L ALT 24 (14-59) U/L Alkaline Phosphatase 45 L (46-116) U/L Total Protein 7.1 (6.4-8.2) g/dl Albumin 3.2 L (3.4-5.0) g/dl Globulin 3.9 gm/dL Albumin/Globulin Ratio 0.8 L (1-2) Urine HCG, Qual Negative (NEGATIVE) 09/16/19 09/16/19 Range/Units 05:45 05:45 WBC 4.98 (3.98-10.04) K/mm3 RBC 4.30 (3.98-5.22) M/mm3 Hgb 13.1 (11.2-15.7) gm/dl Hct 39.1 (34.1-44.9) % MCV 90.9 (79.4-94.8) fl MCH 30.5 (25.6-32.2) pg MCHC 33.5 (32.2-35.5) g/dl RDW Std Deviation 44.1 (36.4-46.3) fL Plt Count 149 L (182-369) K/mm3 MPV 11.3 (9.4-12.3) fl Neut % (Auto) 23.0 L (34.0-71.1) % Lymph % (Auto) 54.0 H (19.3-51.7) % [place] % (Auto) 12.4 (4.7-12.5) % Eos % (Auto) 8.0 H (0.7-5.8) Baso % (Auto) 2.4 H (0.1-1.2) % Neut # (Auto) 1.14 L (1.56-6.13) K/mm3 Lymph # (Auto) 2.69 (1.18-3.74) K/mm3 [place] # (Auto) 0.62 H (0.24-0.36) K/mm3 Eos # (Auto) 0.40 H (0.04-0.36) K/mm3 Baso # (Auto) 0.12 H (0.01-0.08) K/mm3 Neutrophils % (Manual) (40-60) % Band Neutrophils % (0-10) % Lymphocytes % (Manual) (20-40) % Atypical Lymphs % % Monocytes % (Manual) (2-10) % Eosinophils % (Manual) (0.7-5.8) % Basophils % (Manual) (0.1-1.2) Manual Slide Review Abnormal smear Platelet Estimate RBC Morph Comment Sodium 143 (136-145) mEq/L Potassium 3.3 L (3.5-5.1) mEq/L Chloride 108 H (98-107) mEq/L Carbon Dioxide 28 (21-32) mEq/L Anion Gap 10.3 (5-15) BUN 6 L (7-18) mg/dL Creatinine 0.9 (0.55-1.02) mg/dL Est Cr Clr Drug Dosing 65.05 mL/min Estimated GFR (MDRD) > 60 (>60) mL/min BUN/Creatinine Ratio 6.7 L (14-18) Glucose 93 (74-106) mg/dL Calcium 8.5 (8.5-10.1) mg/dL Phosphorus 3.5 (2.6-4.7) mg/dL Magnesium 1.4 L (1.8-2.4) mg/dl Total Bilirubin (0.2-1.0) mg/dL AST (15-37) U/L ALT (14-59) U/L Alkaline Phosphatase (46-116) U/L Total Protein (6.4-8.2) g/dl Albumin (3.4-5.0) g/dl Globulin gm/dL Albumin/Globulin Ratio (1-2) Urine HCG, Qual (NEGATIVE) Med Orders - Current: Current Medications Dextrose/Lactated Ringer's (Dextrose 5%-Lactated Ringers) 1,000 mls @ 50 mls/ hr IV ASDIRECTED LISA Last Admin: 09/15/19 17:36 Dose: 50 mls/hr Ondansetron HCl (Zofran) 4 mg IV Q6H PRN PRN Reason: Nausea/Vomiting Last Admin: 09/15/19 17:46 Dose: 4 mg Sodium Chloride (Saline Flush) 10 ml FLUSH ASDIRECTED PRN PRN Reason: Keep Vein Open Last Admin: 09/15/19 14:31 Dose: 10 ml Discontinued Medications Diphenhydr/Magaldrate/Simeth/Lidoca (First-Mouthwash Blm Susp) 30 ml PO NOW STA Stop: 09/15/19 17:41 Last Admin: 09/15/19 17:47 Dose: 30 ml Sodium Chloride (Normal Saline) 1,000 mls @ 999 mls/hr IV ONETIME ONE Stop: 09/15/19 14:34 Last Admin: 09/15/19 14:30 Dose: 999 mls/hr Metoclopramide HCl (Reglan) 10 mg IVPUSH ONETIME ONE Stop: 09/15/19 13:37 Last Admin: 09/15/19 14:30 Dose: 10 mg Pantoprazole Sodium (Protonix Iv) 40 mg IVPUSH ONETIME ONE Stop: 09/15/19 15:13 Last Admin: 09/15/19 15:36 Dose: 40 mg - Exam Quality Assessment: No: DVT Prophylaxis (VTE:0) General: Alert, Cooperative, No Acute Distress HEENT: Pupils Equal, Pupils Reactive Neck: Supple, Trachea Midline Lungs: Clear to Auscultation, Normal Respiratory Effort Cardiovascular: Regular Rate, Regular Rhythm, Murmurs GI/Abdominal Exam: Normal Bowel Sounds, Soft, Non-Tender, No Distention (Female) Exam: Deferred Back Exam: Normal Inspection, Full Range of Motion Extremities: Normal Inspection, Normal Range of Motion, Non-Tender, No Pedal Edema, Normal Capillary Refill Skin: Warm, Dry, Intact Neurological: No New Focal Deficit Psy/Mental Status: Alert Sepsis Event Note - Evaluation Sepsis Screening Result: No Definite Risk - Focused Exam Vital Signs: Vital Signs Temp Pulse Resp BP Pulse Ox 09/16/19 08:09 98.2 F 74 16 111/75 100 09/16/19 05:11 98.1 F 66 16 120/65 98 Date Exam was Performed: 09/19/19 Time Exam was Performed: 08:33 - Problem List & Annotations (1) Chronic constipation SNOMED Code(s): 787631663 Code(s): K59.09 - OTHER CONSTIPATION Status: Chronic Priority: Low (2) Down syndrome SNOMED Code(s): 38457269 Code(s): Q90.9 - DOWN SYNDROME, UNSPECIFIED Status: Chronic Priority: Low (3) Erosive esophagitis SNOMED Code(s): 90736396 Code(s): K22.10 - ULCER OF ESOPHAGUS WITHOUT BLEEDING Status: Chronic Priority: Medium (4) Hypothyroidism SNOMED Code(s): 22632539 Code(s): E03.9 - HYPOTHYROIDISM, UNSPECIFIED Status: Chronic Priority: Low Qualifiers: Hypothyroidism type: unspecified Qualified Code(s): E03.9 - Hypothyroidism , unspecified (5) Nausea and vomiting SNOMED Code(s): 17301899 Code(s): R11.2 - NAUSEA WITH VOMITING, UNSPECIFIED Status: Acute Priority : High Qualifiers: Vomiting type: unspecified Vomiting Intractability: non-intractable Qualified Code(s): R11.2 - Nausea with vomiting, unspecified (6) Hypokalemia SNOMED Code(s): 20331043 Code(s): E87.6 - HYPOKALEMIA Status: Acute - Problem List Review Problem List Initiated/Reviewed/Updated: Yes - Plan Plan:: Nausea and vomiting Unable to tolerate oral intake as per mom the past week Significant weight loss in past couple of months No significant electrolyte abnormalities Upon evaluation this appears to be a significant psychiatric component Patient forcefully continues to stick out her tongue until she starts dry heaving--> organic causes will be ruled out prior to confirming this diagnoses Prior EGD in July with erosive esophagitis, Treated with omeprazole, mom states it was not successful Emergency department consulted GI specialist who recommended CT enterography PLAN D5LR for IV fluid repletion Monitor electrolytes Scheduled Zofran CT enterography obtained today - results pending Nothing by mouth Dietary consult Hypothyroidism No acute issues PLAN Continue home meds once able to tolerate PO Hypokalemia Potassium 3.3 PLAN -Supplement PROPHYLAXIS DVTambulation to be encouraged GInot indicated CODE STATUS: FULL CODE DISPOSITION Patient will be admitted for IV fluid repletion and CT enterography in the morning as well as scheduled zofran, dietary evaluation and diet advancement as tolerated
[2019-09-16] MEDS ORDERED: Magnesium Sulfate/Water 4 GM in Premix Bag 1 BAG IV ONE (09:30)
[2019-09-16] MEDS: Dextrose 5%-Lactated Ringers 1,000 ML IV SCH (12:47)
[2019-09-16] MEDS: Potassium Chloride 10 MEQ in Premix Bag 1 BAG IV SCH ×4 (12:50→18:44)
[2019-09-16] MEDS ORDERED: Iopamidol 755 Mg/ML 100 ML Bottle IV ONE (14:00)
[2019-09-16] MEDS ORDERED: Barium Sulfate 0.1% Susp 450 ML Bottle PO ONE (14:00)
--- NOTE | 2019-09-16 16:21 | CT ---
CT abdomen and pelvis Technique: Multiple axial sections were obtained from above the dome of the diaphragm inferiorly through the pubic symphysis. Intravenous and negative oral contrast was utilized. Study performed as an angiogram exam. Comparison: Previous abdominal and pelvic CT study of 07/04/19. Findings: Partially visualized parenchymal density within left base which is believed to be chronic. Liver shows no focal abnormality. Spleen shows no focal abnormality. Kidneys show symmetric contrast enhancement. No hydronephrosis or mass is seen. No retroperitoneal adenopathy is noted. Pancreas shows no discrete abnormality. No mesenteric abnormalities are seen. No pelvic mass or adenopathy is noted. Appendix is visualized and appears normal in size. Aorta shows no aneurysm. Celiac axis and superior mesenteric artery show no stenosis. Both renal arteries show no stenosis. Inferior mesenteric artery is patent. Common iliac arteries as well as external and internal iliac arteries are patent with no stenosis. Impression: 1. Parenchymal density within the left base which is incompletely seen but felt to be fairly stable within its inferior portions from prior study and most likely is chronic. 2. No acute abnormality is seen on CT study of the abdomen and pelvis. No focal arterial stenosis is seen as described above. Diagnostic code #2 Study was dictated in MDT
[2019-09-16] MEDS ORDERED: DULoxetine 30 MG Cap PO SCH (18:15)
[2019-09-16] MEDS: LORazepam 0.5 MG Tab PO PRN (20:29)
[2019-09-16] MEDS ORDERED: Pantoprazole 40 MG Vial IVPUSH SCH (21:00)
[2019-09-17] MEDS: Thyroid 60 MG Tab PO SCH (08:20)
[2019-09-17] MEDS: Saccharomyces Boulardii (Probiotic) 250 MG Cap PO SCH (08:21)
[2019-09-17] MEDS: DULoxetine 30 MG Cap PO SCH ×2 (08:21→21:27)
--- NOTE | 2019-09-17 08:29 | PCM.PN ---
<Ludy Del Rosario - Last Filed: 09/17/19 11:25> - General Info Date of Service: 09/17/19 Admission Dx/Problem (Free Text): Admission Diagnosis/Problem Admission Diagnosis/Problem Intractable vomiting with nausea Subjective Update: The patient was seen by me at bedside, case discussed with . The patient last night continued until 11:30 pm to gag self. She was able to eat 100% of her clear liquid diet at dinner. She does not have nausea but continues to gag. She states she feels anxious and gagging is calming. Per nursing staff, she did have about 100cc brown emesis out one time. She also did have small liquid BM. The patient was up to ambulate with nursing staff and was without any obvious gagging. The patient rested well after 11:30pm and called for help less frequently than night before. I had long discussion with patient's mother. She states patient has always had trouble with change and thinks this is new behavior due to patient's cousin's getting and having babies. States patient doesn't do well when attention is not on her. The patient has worked with 3 different psychiatrists/counselors over the years and will consider making appointment with Dr. Guerra. Vital signs are stable, BP 116/64 and pulse 79bpm, afebrile. Wt stable from yesterday 101lbs 4.8oz. CT scan resulted and is without any acute abdominal abnormalities. - Review of Systems General: Reports: Weakness HEENT: Denies: Sore Throat Pulmonary: Denies: Shortness of Breath, Wheezing Cardiovascular: Denies: Lightheadedness Gastrointestinal: Denies: Abdominal Pain Neurological: Denies: Dizziness Psychiatric: Reports: Depression, Anxiety. Denies: Suicidal Ideation - Patient Data Vitals - Most Recent: Last Vital Signs Temp 98.1 F 09/16/19 20:37 Pulse 79 09/16/19 20:37 Resp 16 09/16/19 20:37 BP 116/64 09/16/19 20:37 Pulse Ox 98 09/16/19 20:37 Weight - Most Recent: 45.949 kg I&O - Last 24 Hours: Intake & Output 09/16/19 09/17/19 09/17/19 22:59 06:59 14:59 Intake Total 1430 Output Total 300 Balance 1130 Med Orders - Current: Current Medications Duloxetine HCl (Cymbalta) 30 mg PO BID [facility] Last Admin: 09/17/19 08:21 Dose: 30 mg Lorazepam (Ativan) 0.5 mg PO QID PRN PRN Reason: Anxiety Last Admin: 09/16/19 20:29 Dose: 0.5 mg Ondansetron HCl (Zofran) 4 mg IV Q6H PRN PRN Reason: Nausea/Vomiting Last Admin: 09/16/19 09:16 Dose: 4 mg Pantoprazole Sodium (Protonix Iv) 40 mg IVPUSH BEDTIME [facility] Last Admin: 09/16/19 20:29 Dose: 40 mg Saccharomyces Boulardii (Florastor) 250 mg PO DAILY [facility] Last Admin: 09/17/19 08:21 Dose: 250 mg Sodium Chloride (Saline Flush) 10 ml FLUSH ASDIRECTED PRN PRN Reason: Keep Vein Open Last Admin: 09/15/19 14:31 Dose: 10 ml Thyroid ([place] Thyroid) 60 mg PO DAILY [facility] Last Admin: 09/17/19 08:20 Dose: 60 mg Discontinued Medications Barium Sulfate (Volumen 0.1% Susp) 900 ml PO PREPRO ONE Stop: 09/16/19 14:01 Last Admin: 09/16/19 17:53 Dose: Not Given Diphenhydr/Magaldrate/Simeth/Lidoca (First-Mouthwash Blm Susp) 30 ml PO NOW STA Stop: 09/15/19 17:41 Last Admin: 09/15/19 17:47 Dose: 30 ml Duloxetine HCl (Cymbalta) 30 mg PO DAILY [facility] Last Admin: 09/16/19 18:42 Dose: 30 mg Sodium Chloride (Normal Saline) 1,000 mls @ 999 mls/hr IV ONETIME ONE Stop: 09/15/19 14:34 Last Admin: 09/15/19 14:30 Dose: 999 mls/hr Dextrose/Lactated Ringer's (Dextrose 5%-Lactated Ringers) 1,000 mls @ 50 mls/ hr IV ASDIRECTED [facility] Last Admin: 09/16/19 12:47 Dose: 50 mls/hr Magnesium Sulfate 4 gm/ Premix 50 mls @ 12.5 mls/hr IV ONETIME ONE Stop: 09/16/19 13:29 Last Admin: 09/16/19 09:35 Dose: 12.5 mls/hr Potassium Chloride 10 meq/ (Premix) 100 mls @ 100 mls/hr IV Q1H LISA Stop: 09/16/19 16:59 Last Admin: 09/16/19 18:44 Dose: 100 mls/hr Iopamidol (Isovue-370 (76%)) 100 ml IV ONETIME ONE Stop: 09/16/19 14:01 Last Admin: 09/16/19 17:52 Dose: Not Given Metoclopramide HCl (Reglan) 10 mg IVPUSH ONETIME ONE Stop: 09/15/19 13:37 Last Admin: 09/15/19 14:30 Dose: 10 mg Pantoprazole Sodium (Protonix Iv) 40 mg IVPUSH ONETIME ONE Stop: 09/15/19 15:13 Last Admin: 09/15/19 15:36 Dose: 40 mg Sepsis Event Note - Evaluation Sepsis Screening Result: No Definite Risk - Focused Exam Vital Signs: Vital Signs Temp Pulse Resp BP Pulse Ox 09/16/19 20:37 98.1 F 79 16 116/64 98 Date Exam was Performed: 09/17/19 Time Exam was Performed: 11:25 - Problem List & Annotations (1) Erosive esophagitis SNOMED Code(s): 16238488 Code(s): K22.10 - ULCER OF ESOPHAGUS WITHOUT BLEEDING Status: Acute Priority: Medium Current Visit: Yes (2) Hypokalemia SNOMED Code(s): 08104855 Code(s): E87.6 - HYPOKALEMIA Status: Acute Current Visit: Yes - Problem List Review Problem List Initiated/Reviewed/Updated: Yes - My Orders Last 24 Hours: My Active Orders 09/16/19 21:00 Pantoprazole [ProTONIX IV] 40 mg IVPUSH BEDTIME 09/17/19 09:00 DULoxetine [Cymbalta] 30 mg PO BID 09/17/19 Lunch Full Liquid Diet [DIET] - Plan Plan:: 1.Nausea and vomiting Unable to tolerate oral intake as per mom the past week -tolerating 100% of clear liquids now. Significant weight loss in past couple of months -weight stable since admission. No significant electrolyte abnormalities Upon evaluation this appears to be a significant psychiatric component Patient forcefully continues to stick out her tongue until she starts dry heaving--> organic causes will be ruled out prior to confirming this diagnoses Prior EGD in July with erosive esophagitis, Treated with omeprazole, mom states it was not successful Emergency department consulted GI specialist who recommended CT. CT showed no acute abdominal abnormalities. PLAN Tolerating 100% of clear liquids now. Will advance diet to full liquid at lunch and to soft, bland at dinner if continues to tolerate. Monitor electrolytes. Pantoprazole 40mg po qpm. Dietary consult placed on 09/15. Recommend GERD prophylactic diet. Discussed with pt's mother. -Duloxetine 30mg po BID. 2. Erosive esophagitis Prior EGD in July with erosive esophagitis. PLAN: -Continue pantoprazole 40mg po qpm. -Once diet advanced, will have anti-reflux precautions. 3. Depression Patient has flat affect. Mentions that she wants to have grandchild for her mother. Continues to talk about cousin having baby. PLAN: -Started duloxetine 30mg po BID. Discussed with mother this does not have immediate onset and monitoring of side effects. -Recommend appointment with Dr. Guerra, psychologist, for follow up appointment. 4. Hypokalemia- resolved. Today, potassium is 4.0, up from 3.3 after patient given KCl 40meq yesterday. Hypothyroidism No acute issues PLAN -Will check thyroid levels in AM. Last draw was in 2014. Continue armour thyroid 60mg daily. PROPHYLAXIS DVTambulation to be encouraged GIProtonix 40mg po qpm. CODE STATUS: FULL CODE DISPOSITION Diet will be advanced today. Will discuss further management with pt's mother who is worn out from caring for patient at home with recent behavioral changes. Possible discharge tomorrow if patient tolerates advancement of diet. <Amina Chris - Last Filed: 09/17/19 16:58> - Patient Data Vitals - Most Recent: Last Vital Signs Temp 97.3 F 09/17/19 12:07 Pulse 71 09/17/19 12:07 Resp 16 09/17/19 12:07 BP 100/71 09/17/19 12:07 Pulse Ox 98 09/17/19 12:07 I&O - Last 24 Hours: Intake & Output 09/17/19 09/17/19 09/17/19 06:59 14:59 22:59 Intake Total 486 Output Total 300 Balance 186 Lab Results Last 24 Hours: Laboratory Results - last 24 hr 09/17/19 Range/Units 09:40 Sodium 140 (136-145) mEq/L Potassium 4.0 (3.5-5.1) mEq/L Chloride 106 (98-107) mEq/L Carbon Dioxide 27 (21-32) mEq/L Anion Gap 11.0 (5-15) BUN 5 L (7-18) mg/dL Creatinine 0.8 (0.55-1.02) mg/dL Est Cr Clr Drug Dosing 73.19 mL/min Estimated GFR (MDRD) > 60 (>60) mL/min BUN/Creatinine Ratio 6.3 L (14-18) Glucose 89 (74-106) mg/dL Calcium 8.3 L (8.5-10.1) mg/dL Phosphorus 3.2 (2.6-4.7) mg/dL Magnesium 1.8 (1.8-2.4) mg/dl Med Orders - Current: Current Medications Duloxetine HCl (Cymbalta) 30 mg PO BID [facility] Last Admin: 09/17/19 08:21 Dose: 30 mg Lorazepam (Ativan) 0.5 mg PO QID PRN PRN Reason: Anxiety Last Admin: 09/16/19 20:29 Dose: 0.5 mg Ondansetron HCl (Zofran Odt) 4 mg PO Q4H PRN PRN Reason: Nausea/Vomiting Pantoprazole Sodium (Protonix) 40 mg PO BEDTIME [facility] Saccharomyces Boulardii (Florastor) 250 mg PO DAILY [facility] Last Admin: 09/17/19 08:21 Dose: 250 mg Sodium Chloride (Saline Flush) 10 ml FLUSH ASDIRECTED PRN PRN Reason: Keep Vein Open Last Admin: 09/15/19 14:31 Dose: 10 ml Thyroid ([place] Thyroid) 60 mg PO DAILY [facility] Last Admin: 09/17/19 08:20 Dose: 60 mg Discontinued Medications Barium Sulfate (Volumen 0.1% Susp) 900 ml PO PREPRO ONE Stop: 09/16/19 14:01 Last Admin: 09/16/19 17:53 Dose: Not Given Diphenhydr/Magaldrate/Simeth/Lidoca (First-Mouthwash Blm Susp) 30 ml PO NOW STA Stop: 09/15/19 17:41 Last Admin: 09/15/19 17:47 Dose: 30 ml Duloxetine HCl (Cymbalta) 30 mg PO DAILY [facility] Last Admin: 09/16/19 18:42 Dose: 30 mg Sodium Chloride (Normal Saline) 1,000 mls @ 999 mls/hr IV ONETIME ONE Stop: 09/15/19 14:34 Last Admin: 09/15/19 14:30 Dose: 999 mls/hr Dextrose/Lactated Ringer's (Dextrose 5%-Lactated Ringers) 1,000 mls @ 50 mls/ hr IV ASDIRECTED [facility] Last Admin: 09/16/19 12:47 Dose: 50 mls/hr Magnesium Sulfate 4 gm/ Premix 50 mls @ 12.5 mls/hr IV ONETIME ONE Stop: 09/16/19 13:29 Last Admin: 09/16/19 09:35 Dose: 12.5 mls/hr Potassium Chloride 10 meq/ (Premix) 100 mls @ 100 mls/hr IV Q1H [facility] Stop: 09/16/19 16:59 Last Admin: 09/16/19 18:44 Dose: 100 mls/hr Iopamidol (Isovue-370 (76%)) 100 ml IV ONETIME ONE Stop: 09/16/19 14:01 Last Admin: 09/16/19 17:52 Dose: Not Given Metoclopramide HCl (Reglan) 10 mg IVPUSH ONETIME ONE Stop: 09/15/19 13:37 Last Admin: 09/15/19 14:30 Dose: 10 mg Ondansetron HCl (Zofran) 4 mg IV Q6H PRN PRN Reason: Nausea/Vomiting Last Admin: 09/16/19 09:16 Dose: 4 mg Pantoprazole Sodium (Protonix Iv) 40 mg IVPUSH ONETIME ONE Stop: 09/15/19 15:13 Last Admin: 09/15/19 15:36 Dose: 40 mg Pantoprazole Sodium (Protonix Iv) 40 mg IVPUSH BEDTIME [facility] Last Admin: 09/16/19 20:29 Dose: 40 mg Sepsis Event Note - Focused Exam Vital Signs: Vital Signs Temp Pulse Resp BP Pulse Ox 09/17/19 12:07 97.3 F 71 16 100/71 98 09/17/19 08:01 98.2 F 76 16 124/96 H 98 Date Exam was Performed: 09/17/19 Time Exam was Performed: 16:57 - Problem List & Annotations (1) Nausea and vomiting SNOMED Code(s): 01203559 Code(s): R11.2 - NAUSEA WITH VOMITING, UNSPECIFIED Status: Acute Current Visit: No Qualifiers: Vomiting type: unspecified Vomiting Intractability: non-intractable Qualified Code(s): R11.2 - Nausea with vomiting, unspecified (2) Erosive esophagitis SNOMED Code(s): 71526255 Code(s): K22.10 - ULCER OF ESOPHAGUS WITHOUT BLEEDING Status: Acute Priority: Medium Current Visit: Yes (3) Chronic constipation SNOMED Code(s): 167157221 Code(s): K59.09 - OTHER CONSTIPATION Status: Acute Current Visit: Yes (4) Hypothyroidism SNOMED Code(s): 61575588 Code(s): E03.9 - HYPOTHYROIDISM, UNSPECIFIED Status: Acute Current Visit : Yes (5) Down syndrome SNOMED Code(s): 20118033 Code(s): Q90.9 - DOWN SYNDROME, UNSPECIFIED Status: Acute Current Visit: Yes - My Orders Last 24 Hours: My Active Orders 09/16/19 18:09 LORazepam [Ativan] 0.5 mg PO QID PRN 09/17/19 09:00 Saccharomyces Boulardii [Florastor] 250 mg PO DAILY Thyroid [[place] Thyroid] 60 mg PO DAILY - Plan Plan:: Will discontinue pantoprazole since it is not indicated in this case
[2019-09-17] MEDS ORDERED: Ondansetron 4 MG Tab.DIS PO PRN (10:02)
[2019-09-17] MEDS ORDERED: Pantoprazole 40 MG Tab.CR PO SCH (21:00)
[2019-09-17] MEDS: LORazepam 0.5 MG Tab PO PRN (21:27)
[2019-09-18] MEDS: Thyroid 60 MG Tab PO SCH (08:15)
[2019-09-18] MEDS: Saccharomyces Boulardii (Probiotic) 250 MG Cap PO SCH (08:15)
[2019-09-18] MEDS: DULoxetine 30 MG Cap PO SCH (08:17)
[2019-09-18 08:21] VITALS: PULSE 79
[2019-09-18 12:13] VITALS: BP 112/83
--- NOTE | 2019-09-18 12:32 | PCM.DCSUM1 ---
Discharge Summary - Hospital Course HPI Initial Comments: Patient is a 29-year-old female who presents to the ED for ongoing GI issues. The patient does have a history of Down syndrome, and lives with her mother and father. Mother notes that the patient has been gagging with small amounts of vomit since June, was seen in this ER on July 04, had abdominal x-rays and a CT, that demonstrated a slight thickening of the bowel. Patient did have a follow-up EGD and colonoscopy, and EGD revealed erosive gastritis without active bleed and started on omeprazole. Patient has been doctoring with Dr. Clayton from [facility] for ongoing symptoms. Mother states that the patient eats small amounts of soft foods like oatmeal, yogurt, ice cream, but has not eaten a real solid meal for quite some time. They note that she has lost 20 pounds over the last 6 weeks. The patient was in the clinic at [facility] twice this last week for IV fluids, and antinausea medications. 1 on Thursday and 1 time on Thursday. This helped symptoms for a little while, but then the patient is right back complaining shortly after they leave. Mother states that she tried making food she likes but patient spits it out. Mother states that the child has not been able to keep any sort of solid food down. Patient did have bowel movement though small, 2 days ago. Mother notes that the patient has been getting up some stringy brown stuff in her emesis as well, but denies any sort of obvious blood. Patient is not complaining of any abdomen pain. Mother states that the patient has not had any fever or chills, shortness of breath, chest pain or cough. Dr. Clayton did try her on some outpatient Zofran and Ativan for management, but this did not seem to help much.. In ED, vitals stable, WBC 4.54, Hemoglobin 13.3, potassium 3.5, Sodium 143, BUN 8, Cr 0.9, LFTs normal, urine HCG negative. Trouble Locator Test Desk consulted in ED and recommended NPO CT abd/pelvis. Diagnosis: Stroke: No - Discharge Data Discharge Date: 09/18/19 Discharge Disposition: Home, Self-Care 01 Condition: Good - Referral to Home Health Primary Care Physician: Tamiko Toledo MD - Discharge Diagnosis/Problem(s) (1) Erosive esophagitis SNOMED Code(s): 29136193 ICD Code: K22.10 - ULCER OF ESOPHAGUS WITHOUT BLEEDING Status: Acute Priority: Medium Current Visit: Yes (2) Hypokalemia SNOMED Code(s): 41021076 ICD Code: E87.6 - HYPOKALEMIA Status: Acute Current Visit: Yes (3) Anxiety and depression SNOMED Code(s): 032071084 ICD Code: F41.9 - ANXIETY DISORDER, UNSPECIFIED; F32.9 - MAJOR DEPRESSIVE DISORDER, SINGLE EPISODE, UNSPECIFIED Status: Chronic Current Visit: Yes (4) Self induced vomiting SNOMED Code(s): 72040406 ICD Code: F50.89 - OTHER SPECIFIED EATING DISORDER Status: Acute Current Visit: Yes (5) Hypothyroidism SNOMED Code(s): 15969885 ICD Code: E03.9 - HYPOTHYROIDISM, UNSPECIFIED Status: Acute Current Visit : Yes (6) Nausea and vomiting in adult patient SNOMED Code(s): 14666142 ICD Code: R11.2 - NAUSEA WITH VOMITING, UNSPECIFIED Status: Acute Current Visit: Yes - Patient Summary/Data Consults: Consultations 09/16/19 09:52 Consult to Residential Advisor [CONS] Routine 09/18/19 07:16 Consult to Physician [CONS] Routine Hospital Course: The patient is a 29 y/o female, PCP Dr. Clayton. She was admitted to the hospital on 09/15/2019 on observation with intractable nausea and vomiting. She was given IV fluid resuscitation. Diet was NPO. Zofran 4mg IV for nausea/ vomiting. The patient was taken for CT abdomen and pelvis which was negative for acute abnormalities. Patient continued to have small amounts of vomit throughout day. Electrolytes rechecked and potassium low at 3.3 so was replaced. Nursing staff noted patient to be self-inducing vomiting and using finger tucked in shirt to maker herself vomit. They also noted patient to be sticking out tongue and causing herself to gag. On discussion with patient, she says she has been having anxiety and this helps soothe her. On discussion again with pt's mother, she states she thinks this is more so attention seeking behavior because it has started when one cousin became and another cousin is getting . Patient's mother describes patient as not handling change and does have attention seeking behaviors. Mother states patient has seen psychiatrists in the past and does much better with in-person discussion. The patient was started on duloxetine 30mg po BID and was given ativan 0.5mg q4h as needed for anxiety. I discussed with patient the risks of self induced vomiting, chronic esophagitis, and electrolyte imbalance. The patient acknowledged she understood and was able to repeat back the risks. Patient states she will try to find other coping mechanisms of anxiety with watching soap operas and coloring. She does not have suicidal ideation. Diet was advanced as tolerated and patient is eating 100% of meals. Patient has had decrease in self-induced gagging today and minimal vomiting. Today, patient does not gag during discussion. Vitals are normal, electrolytes normal. I discussed case with Dr. Nelson and plan is for patient to follow up in outpatient psychiatric facility on 09/27/2019. Mother is to call tomorrow to set up appointment but there is time available on that date. She will continue duloxetine 30mg po BID and ativan as needed. Medication adjustments will be discussed at follow up psychiatrist visit. - Patient Instructions Diet: Regular Diet as Tolerated (Patient should eat foods she enjoys eating. She can eat in small amounts if this helps. Nothing medically was found to keep patient from eating regular diet.) Activity: As Tolerated Other/Special Instructions: The patient is prescribed duloxetine 30mg by mouth twice a day. Please monitor patient for suicidal ideation. If patient has suicidal ideation, call PCP immediately and discuss new medication of duloxetine. I encourage patient to find other coping mechanisms to soothe anxiety. She states watching soap operas helps or coloring w/ markers. Please call psychiatric outpatient clinic tomorrow, Thursday, to set up appointment for 09/27/2019. - Discharge Plan *PRESCRIPTION DRUG MONITORING PROGRAM REVIEWED*: Yes *COPY OF PRESCRIPTION DRUG MONITORING REPORT IN PATIENT [place]: Yes Prescriptions/Med Rec: DULoxetine HCl [Duloxetine HCl] 30 mg PO BID 30 Days #60 capsule. Home Medications: Home Meds Thyroid,Pork [Nature-Throid] 65 mg PO DAILY 07/04/19 [History] Gabapentin [Neurontin] 300 mg PO BID 09/15/19 [History] LORazepam [Ativan] 0.5 mg PO QID PRN 09/15/19 [History] Lactobacillus Combination No.4 [Probiotic] 1 each PO DAILY 09/15/19 [History] Niacinamide [Niacin] 500 mg PO DAILY 09/15/19 [History] Ondansetron [Zofran ODT] 4 mg PO Q6HR PRN 09/15/19 [History] DULoxetine HCl [Duloxetine HCl] 30 mg PO BID 30 Days #60 capsule. 09/18/19 [Rx ] Patient Handouts: Generalized Anxiety Disorder, Adult, Esophagitis Referrals: Tamiko Toledo MD [Primary Care Provider] - (Follow up as needed.) - Discharge Summary/Plan Comment DC Time >30 min.: Yes - Review of Systems General: Denies: Fever, Chills HEENT: Denies: Headaches, Sore Throat Pulmonary: Denies: Shortness of Breath Cardiovascular: Denies: Chest Pain, Lightheadedness Gastrointestinal: Denies: Abdominal Pain, Difficulty Swallowing, Nausea Neurological: Denies: Dizziness, Headache Psychiatric: Reports: Depression, Anxiety - Patient Data Vitals - Most Recent: Last Vital Signs Temp 98.1 F 09/18/19 12:01 Pulse 79 09/18/19 12:01 Resp 13 09/18/19 12:01 BP 112/83 09/18/19 12:01 Pulse Ox 96 09/18/19 12:01 Weight - Most Recent: 101 lb 4.8 oz I&O - Last 24 hours: Intake & Output 09/17/19 09/18/19 09/18/19 22:59 06:59 14:59 Intake Total 700 375 Balance 700 375 Lab Results - Last 24 hrs: Laboratory Results - last 24 hr 09/18/19 09/18/19 Range/Units 08:04 08:04 Free T4 0.93 (0.76-1.46) ng/dL TSH 3rd Generation 0.070 L (0.358-3.74) uIU/mL Med Orders - Current: Current Medications Duloxetine HCl (Cymbalta) 30 mg PO BID LISA Last Admin: 09/18/19 08:17 Dose: 30 mg Lorazepam (Ativan) 0.5 mg PO QID PRN PRN Reason: Anxiety Last Admin: 09/17/19 21:27 Dose: 0.5 mg Ondansetron HCl (Zofran Odt) 4 mg PO Q4H PRN PRN Reason: Nausea/Vomiting Saccharomyces Boulardii (Florastor) 250 mg PO DAILY [facility] Last Admin: 09/18/19 08:15 Dose: 250 mg Sodium Chloride (Saline Flush) 10 ml FLUSH ASDIRECTED PRN PRN Reason: Keep Vein Open Last Admin: 09/15/19 14:31 Dose: 10 ml Thyroid ([place] Thyroid) 60 mg PO DAILY [facility] [place] Last Admin: 09/18/19 08:15 Dose: 60 mg Discontinued Medications Barium Sulfate (Volumen 0.1% Susp) 900 ml PO PREPRO ONE Stop: 09/16/19 14:01 Last Admin: 09/16/19 17:53 Dose: Not Given Diphenhydr/Magaldrate/Simeth/Lidoca (First-Mouthwash Blm Susp) 30 ml PO NOW STA Stop: 09/15/19 17:41 Last Admin: 09/15/19 17:47 Dose: 30 ml Duloxetine HCl (Cymbalta) 30 mg PO DAILY [facility] Last Admin: 09/16/19 18:42 Dose: 30 mg Sodium Chloride (Normal Saline) 1,000 mls @ 999 mls/hr IV ONETIME ONE Stop: 09/15/19 14:34 Last Admin: 09/15/19 14:30 Dose: 999 mls/hr Dextrose/Lactated Ringer's (Dextrose 5%-Lactated Ringers) 1,000 mls @ 50 mls/ hr IV ASDIRECTED LISA Last Admin: 09/16/19 12:47 Dose: 50 mls/hr Magnesium Sulfate 4 gm/ Premix 50 mls @ 12.5 mls/hr IV ONETIME ONE Stop: 09/16/19 13:29 Last Admin: 09/16/19 09:35 Dose: 12.5 mls/hr Potassium Chloride 10 meq/ (Premix) 100 mls @ 100 mls/hr IV Q1H LISA Stop: 09/16/19 16:59 Last Admin: 09/16/19 18:44 Dose: 100 mls/hr Iopamidol (Isovue-370 (76%)) 100 ml IV ONETIME ONE Stop: 09/16/19 14:01 Last Admin: 09/16/19 17:52 Dose: Not Given Metoclopramide HCl (Reglan) 10 mg IVPUSH ONETIME ONE Stop: 09/15/19 13:37 Last Admin: 09/15/19 14:30 Dose: 10 mg Ondansetron HCl (Zofran) 4 mg IV Q6H PRN PRN Reason: Nausea/Vomiting Last Admin: 09/16/19 09:16 Dose: 4 mg Pantoprazole Sodium (Protonix Iv) 40 mg IVPUSH ONETIME ONE Stop: 09/15/19 15:13 Last Admin: 09/15/19 15:36 Dose: 40 mg Pantoprazole Sodium (Protonix Iv) 40 mg IVPUSH BEDTIME LISA Last Admin: 09/16/19 20:29 Dose: 40 mg Pantoprazole Sodium (Protonix) 40 mg PO BEDTIME [facility] Last Admin: 09/17/19 21:27 Dose: 40 mg - Exam General: Reports: Alert, Oriented, Cooperative Lungs: Reports: Clear to Auscultation, Normal Respiratory Effort. Denies: Crackles, Rales, Wheezing Cardiovascular: Reports: Regular Rate, Regular Rhythm, Other (Systolic murmur 4/ 6) GI/Abdominal Exam: Normal Bowel Sounds, Soft, Non-Tender, No Distention Extremities: Normal Inspection, No Pedal Edema, Normal Capillary Refill Skin: Reports: Warm, Dry, Intact Psy/Mental Status: Reports: Alert, Other (Flat affect)
== END 2019-09-18 14:46 | disposition home or self-care (01) ==
LOC: JD.ED 13:13 → JD.MS 15:48
PROVIDERS: ADMIT Internal Medicine; ATTEND Internal Medicine
DX: K22.10 Ulcer of esophagus without bleeding (principal); E87.6 Hypokalemia; F41.9 Anxiety disorder, unspecified; F32.9 Major depressive disorder, single episode, unspecified; E03.9 Hypothyroidism, unspecified; F50.89 Other specified eating disorder; K59.09 Other constipation; Q90.9 Down syndrome, unspecified; K21.9 Gastro-esophageal reflux disease without esophagitis; Z79.899 Other long term (current) drug therapy
CPT/HCPCS: 36415; 74177; 80048; 80053; 81025; 83735; 84100; 84439; 84443; 85007; 85025; 85027; 96361; 96365; 96375; 96376; 99285; A9270; C9113; G0378; J2405; J2765; J3475; J3480; J7030; J7121; 96374; 99217; 99219; 99224

== ENCOUNTER 2020-08-03 10:05 | Emergency (ER) | payer MEDICARE, MEDICAID ==
[2020-08-03] MEDS ORDERED: EPINEPHrine 1 MG/ML SDV IM PRN ×2 (11:55→12:04)
[2020-08-03] MEDS ORDERED: diphenhydrAMINE 50 MG/ML SDV IVPUSH PRN ×2 (11:55→12:04)
[2020-08-03] MEDS ORDERED: methylPREDNISolone Sodium Succinate 125 MG/2 ML SDV IVPUSH PRN ×2 (11:55→12:04)
[2020-08-03] MEDS ORDERED: Casirivimab 1,200 MG, Imdevimab 1,200 MG in Sodium Chloride 0.9% 230 ML IV ONE (11:55)
[2020-08-03] MEDS ORDERED: Famotidine 20 MG/2 ML SDV IVPUSH PRN ×2 (11:55→12:04)
--- NOTE | 2020-08-03 11:58 | CR ---
Chest: PA and lateral views of the chest were obtained. Comparison: Prior chest x-ray at 09/16/14. Heart size and mediastinum are within normal limits. Increased density within the left base is seen which is similar to prior exam. Diffuse increased perihilar markings are also noted which are fairly stable. Scoliosis is present within the spine. Impression: 1. Diffuse increased perihilar markings as well as parenchymal density within the left lung base. Findings are fairly similar to prior study and uncertain if these are chronic or represent reappearance of bronchitis and left lower lobe pneumonia. 2. Scoliosis. Diagnostic code #3
[2020-08-03] MEDS ORDERED: Sodium Chloride 0.9% 10 ML Syringe FLUSH SCH ×2 (12:00→12:15)
--- NOTE | 2020-08-03 13:22 | EDM.PDOC ---
ED HPI GENERAL MEDICAL PROBLEM - General Chief Complaint: Fever Stated Complaint: COVID SX Time Seen by Provider: 08/03/20 11:05 Source of Information: Reports: Patient, Family, RN Notes Reviewed History Limitations: Reports: No Limitations - History of Present Illness INITIAL COMMENTS - FREE TEXT/NARRATIVE: Patient is a 30-year-old female presenting to the emergency department with her mother with complaints of cough and fever for the past few days. Patient does have a diagnosis of Down syndrome as well as severe GERD and reflux. Mother states that she does not eat well for last few days has been eating even less. She has been taking in Pedialyte and fluids fairly well. She was treated at [facility] in [place] for severe GERD and esophagitis. 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 They are only now beginning to introduce somewhat solid foods. Otherwise she eats pured solids. Cough has been nonproductive. Patient does have a history significant for A. 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 - Related Data Allergies Allergy/AdvReac Type Severity Reaction Status Date / Time No Known Allergies Allergy Verified 08/03/20 10:27 Home Meds: Home Meds Levothyroxine [Synthroid] 50 mcg PO ACBREAKFAST 08/03/20 [History] Omeprazole 10 mg PO DAILY 08/03/20 [History] Past Medical History HEENT History: Reports: Cataract, Hard of Hearing Cardiovascular History: Reports: Afib, Congenital Septal Defect, Heart Murmur, Other (See Below) Other Cardiovascular History: ASD, VSD Respiratory History: Reports: None Gastrointestinal History: Reports: Chronic Constipation, GERD Other Gastrointestinal History: extreme acid reflux Genitourinary History: Reports: None HYDROLOGIST History: Reports: None Musculoskeletal History: Reports: None Neurological History: Reports: None Psychiatric History: Reports: Anxiety, Depression, Other (See Below) Other Psychiatric History: Down's Syndrome, tc disorder Endocrine/Metabolic History: Reports: Other (See Below) Other Endocrine/Metabolic History: Jailene's, elevated TSH Hematologic History: Reports: None Immunologic History: Reports: None Oncologic (Cancer) History: Reports: None Dermatologic History: Reports: None - Infectious Disease History Infectious Disease History: Reports: None - Past Surgical History Head Surgeries/Procedures: Reports: None HEENT Surgical History: Reports: Cataract Surgery, Myringotomy w Tube(s) Cardiovascular Surgical History: Reports: None Respiratory Surgical History: Reports: None GI Surgical History: Reports: None Female Surgical History: Reports: None Endocrine Surgical History: Reports: None Neurological Surgical History: Reports: None Musculoskeletal Surgical History: Reports: None Oncologic Surgical History: Reports: None Dermatological Surgical History: Reports: None Social & Family History - Family History Family Medical History: No Pertinent Family History - Tobacco Use Tobacco Use Status *Q: Never Tobacco User - Caffeine Use Caffeine Use: Reports: None - Recreational Drug Use Recreational Drug Use: No ED ROS GENERAL - Review of Systems Review Of Systems: See Below Constitutional: Reports: Fever, Fatigue, Decreased Appetite HEENT: Reports: No Symptoms Respiratory: Reports: Cough. Denies: Shortness of Breath, Wheezing Cardiovascular: Reports: No Symptoms Endocrine: Reports: No Symptoms GI/Abdominal: Reports: Decreased Appetite. Denies: Abdominal Pain, Diarrhea, Na usea, Vomiting : Reports: No Symptoms Musculoskeletal: Reports: No Symptoms Skin: Reports: No Symptoms Neurological: Reports: No Symptoms Psychiatric: Reports: No Symptoms Hematologic/Lymphatic: Reports: No Symptoms Immunologic: Reports: No Symptoms ED EXAM, GENERAL - Physical Exam Exam: See Below Exam Limited By: No Limitations General Appearance: Alert, WD/WN, No Apparent Distress Respiratory/Chest: No Respiratory Distress, Lungs Clear, Normal Breath Sounds, No Accessory Muscle Use, Chest Non-Tender Cardiovascular: Normal Peripheral Pulses, Regular Rate, Rhythm, No Edema, No Gallop, No JVD, No Murmur, No Rub GI/Abdominal: Normal Bowel Sounds, Soft, Non-Tender, No Organomegaly, No Distention, No Abnormal Bruit, No Mass Neurological: Alert, Oriented, CN II-XII Intact, Normal Cognition, Normal Gait, Normal Reflexes, No Motor/Sensory Deficits Psychiatric: Normal Affect, Normal Mood Skin Exam: Warm, Dry, Intact, Normal Color, No Rash Course - Vital Signs Last Recorded V/S: Last Vital Signs Temp 98.8 F 08/03/20 16:00 Pulse 66 08/03/20 16:00 Resp 16 08/03/20 16:00 BP 118/70 08/03/20 16:00 Pulse Ox 100 08/03/20 16:00 - Orders/Labs/Meds Labs: Laboratory Tests 08/03/20 08/03/20 08/03/20 Range/Units 10:30 11:39 11:39 WBC 2.10 L* (3.98-10.04) K/mm3 RBC 4.07 (3.98-5.22) M/mm3 Hgb 12.8 (11.2-15.7) gm/dl Hct 38.9 (34.1-44.9) % MCV 95.6 H D (79.4-94.8) fl MCH 31.4 (25.6-32.2) pg MCHC 32.9 (32.2-35.5) g/dl RDW Std Deviation 48.5 H (36.4-46.3) fL Plt Count 78 L (182-369) K/mm3 MPV 10.9 (9.4-12.3) fl Neut % (Auto) 27.6 L (34.0-71.1) % Lymph % (Auto) 57.1 H (19.3-51.7) % [place] % (Auto) 13.8 H (4.7-12.5) % Eos % (Auto) 0 L (0.7-5.8) Baso % (Auto) 0.5 (0.1-1.2) % Neut # (Auto) 0.58 L (1.56-6.13) K/mm3 Lymph # (Auto) 1.20 (1.18-3.74) K/mm3 [place] # (Auto) 0.29 (0.24-0.36) K/mm3 Eos # (Auto) 0.00 L (0.04-0.36) K/mm3 Baso # (Auto) 0.01 (0.01-0.08) K/mm3 Manual Slide Review Abnormal smear Sodium 142 (136-145) mEq/L Potassium 3.8 (3.5-5.1) mEq/L Chloride 102 (98-107) mEq/L Carbon Dioxide 30 (21-32) mEq/L Anion Gap 13.8 (5-15) BUN 15 (7-18) mg/dL Creatinine 1.0 (0.55-1.02) mg/dL Est Cr Clr Drug Dosing 50.31 mL/min Estimated GFR (MDRD) > 60 (>60) mL/min BUN/Creatinine Ratio 15.0 (14-18) Glucose 81 (74-106) mg/dL Calcium 8.3 L (8.5-10.1) mg/dL Total Bilirubin 0.3 (0.2-1.0) mg/dL AST 30 (15-37) U/L ALT 16 (14-59) U/L Alkaline Phosphatase 34 L (46-116) U/L C-Reactive Protein 5.3 H* (<1.0) mg/dL Total Protein 7.0 (6.4-8.2) g/dl Albumin 2.9 L (3.4-5.0) g/dl Globulin 4.1 gm/dL Albumin/Globulin Ratio 0.7 L (1-2) SARS-CoV-2 RNA (EMIL) Positive H (NEGATIVE) Meds: Medications Discontinued Medications Generic Name Dose Route Start Last Admin Trade Name Freq PRN Reason Stop Dose Admin Diphenhydramine HCl 50 mg 08/03/20 12:04 Benadryl IVPUSH ONETIME PRN hypersensitivity reaction Epinephrine HCl 0.3 mg 08/03/20 12:04 Adrenalin IM ONETIME PRN hypersensitivity reaction Famotidine 20 mg 08/03/20 12:04 Pepcid IVPUSH ONETIME PRN hypersensitivity reaction Bamlanivimab 700 mg/ Sodium 270 mls @ 270 mls/hr 08/03/20 12:04 08/03/20 12:53 Chloride IV 08/03/20 12:05 270 mls/hr ONETIME ONE Administration Protocol Methylprednisolone Sodium Succinate 125 mg 08/03/20 12:04 Solu-Medrol IVPUSH ONETIME PRN hypersensitivity reaction Sodium Chloride 30 ml 08/03/20 12:15 08/03/20 16:00 Saline Flush FLUSH 30 ml ASDIRECTED [facility] Administration - Re-Assessments/Exams Free Text/Narrative Re-Assessment/Exam: Patient is a 30-year-old female presenting to the emergency department with her mother with complaints of fever and cough. Symptoms have been going on for last few days. Patient's mother and father have been sick with "flulike "symptoms about 1 week ago. Patient has Down syndrome as well as a history of severe GERD with esophagitis and now rumination disorder. She eats very little, but mother states she has been taking fluids fairly well. Exam findings are grossly unremarkable. Lung sounds are clear. I have ordered blood work, Covid test, and chest x-ray. 08/03/20 1210 Patient's Covid test did come back positive. I spoke with POA/mother, Jania, to provide information about bamlanivimab facundo atment for Nancy. I offered them the ``Patient and Caregiver JOHN Bamlanivimad Fact Sheet to read and review I stated the drug has been approved by an emergency use authorization (EUA) process and has not fully been FDA reviewed or approved The patient meets the EUA requirements I discussed there are other potential treatment options that are currently not FDA approved to treat COVID-19. Offered opportunity to ask questions and all questions were answered POA/mother Jania voiced understanding and agreed to proceed with treatment for Nancy. 08/03/20 14:32 Hematology was significant for WBC low at 2.10, CRP 5.3. Blood work was otherwise unremarkable. Chest x-ray showed: 1. Diffuse increased perihilar markings as well as parenchymal densities within the left lung base. Findings are fairly similar to prior study and uncertain if these are chronic or represent appearance of bronchitis and left lower lobe pneumonia. 2. Scoliosis. Given that the patient is Covid positive, these changes in her lungs are likely viral in nature. No IV fluids are indicated at this time. Oxygen saturations have been maintaining 94 to 98% on room air. Patient has finished her Bamla nivimab and will be monitored for 1 hour. Departure - Departure Time of Disposition: 15:42 Disposition: Home, Self-Care 01 Condition: Good Clinical Impression: COVID-19 - Discharge Information *PRESCRIPTION DRUG MONITORING PROGRAM REVIEWED*: No *COPY OF PRESCRIPTION DRUG MONITORING REPORT IN PATIENT [place]: No Instructions: COVID-19 Frequently Asked Questions, COVID-19 Referrals: Tamiko Toledo MD [Primary Care Provider] - Forms: ED Department Discharge Additional Instructions: Nancy was seen in the emergency department today for fever, cough, decreased appetite. Work-up included blood work, chest x-ray, and a Covid test. She was found to be Covid positive. While in the ER, she did receive Bamlanivimab, a monoclonal antibody. Recommend adequate hydration as well as Tylenol and ibuprofen as needed at home. Continue to encourage oral intake including supplements. If her symptoms should be worsening, please not hesitate to return to the emergency department for reevaluation. Sepsis Event Note (ED) - Evaluation Sepsis Screening Result: No Definite Risk
[2020-08-03 17:00] VITALS: BP 118/70; PULSE 66
== END 2020-08-03 16:00 | disposition home or self-care (01) ==
LOC: JD.ED 10:05
DX: U07.1 COVID-19 (principal); I48.91 Unspecified atrial fibrillation; K21.9 Gastro-esophageal reflux disease without esophagitis; Z79.899 Other long term (current) drug therapy
CPT/HCPCS: 36415; 71046; 80053; 85025; 86140; 99283; J7050; M0239; Q0239; U0002; 99284

== ENCOUNTER 2020-08-06 06:12 | Inpatient (IN) | payer MEDICARE, MEDICAID ==
[2020-08-06] MEDS ORDERED: Sodium Chloride 0.9% 1,000 ML IV ONE (06:57)
--- NOTE | 2020-08-06 07:03 | EDM.PDOC ---
ED HPI GENERAL MEDICAL PROBLEM - General Chief Complaint: Abdominal Pain Stated Complaint: COVID +/NOT EATING X5 Time Seen by Provider: 08/06/20 06:31 Source of Information: Reports: Family (Mother) History Limitations: Reports: No Limitations - History of Present Illness INITIAL COMMENTS - FREE TEXT/NARRATIVE: Ms. Keyes is a very pleasant 30-year-old woman with a past medical history significant for Down syndrome, severe GERD, esophagitis, on liquid omeprazole, who was seen in this ED this past 08/03/2020, with a history of cough, fever, nausea, and decreased appetite since 07/30/2020. She was diagnosed with COVID-19. She was treated with bamlamivimab, IV Solu-Medrol, Pepcid, epinephrine, diphenhydramine, and discharged home. She is now brought back to the ED by her mother, who tells me that she has continued to have decreased appetite of both solids and liquids. Mom states that she sometimes gags. She appears to be afraid to eat or drink. Mom states that the patient fell when she got up to use the bathroom yesterday. There is no change in her condition today. Mom states that because of her decreased intake, she has not taken her omeprazole, or any of her other medications, for the past 4 or 5 days. Here in the ED, the patient's initial BP is found to be depressed at 86/69, otherwise, she is afebrile, saturating 100% on room air. She does not appear to be in any distress. Prior to last Thursday, the patient's mother denies that the patient has had a recent fever, chills, sore throat, ear pain, nasal or sinus congestion, cough, dyspnea, chest pain, palpitations, nausea, vomiting, constipation, diarrhea, abdominal pain, urinary symptoms, recent weight gain or weight loss, recent bloody bowel movements or black bowel movements, recent joint aches, headaches, or rashes. The patient's PCP is Dr. Tamiko Clayton. Her Industrial Management Teacher is at [facility] in [place], [place]. She has not received an influenza vaccine this season. - Related Data Allergies Allergy/AdvReac Type Severity Reaction Status Date / Time No Known Allergies Allergy Verified 08/03/20 10:27 Home Meds: Home Meds Levothyroxine [Synthroid] 50 mcg PO ACBREAKFAST 08/03/20 [History] Omeprazole 10 mg PO DAILY 08/03/20 [History] Past Medical History HEENT History: Reports: Hard of Hearing Cardiovascular History: Reports: Afib (paroxysmal), Congenital Septal Defect (ASD + VSD) Gastrointestinal History: Reports: Gastritis, GERD (severe) Neurological History: Reports: Other (See Below) (Down syndrome) Psychiatric History: Reports: Anxiety, Depression Endocrine/Metabolic History: Reports: Other (See Below) (Jailene's thyroiditis) - Infectious Disease History Infectious Disease History: Reports: Novel Coronavirus (dx'd 08/03/2020) - Past Surgical History HEENT Surgical History: Reports: Cataract Surgery (bilateral), Myringotomy w Tube(s) (bilateral) Social & Family History - Tobacco Use Tobacco Use Status *Q: Never Tobacco User - Caffeine Use Caffeine Use: Reports: None - Alcohol Use Alcohol Use History: No - Recreational Drug Use Recreational Drug Use: No - Living Situation & Occupation Living situation: Reports: Single, with Family Occupation: Disabled ED ROS GENERAL - Review of Systems Review Of Systems: Comprehensive ROS is negative, except as noted in HPI. ED EXAM, GI/ABD - Physical Exam Exam: See Below Exam Limited By: No Limitations General Appearance: Alert, WD/WN, No Apparent Distress Eyes: Bilateral: Normal Appearance, EOMI Ears: Normal External Exam, Hearing Loss Nose: Normal Inspection Throat/Mouth: Normal Inspection, Normal Lips, Normal Voice, No Airway Compromise Head: Atraumatic, Normocephalic Neck: Normal Inspection, Supple, Non-Tender, Full Range of Motion Respiratory/Chest: No Respiratory Distress, Lungs Clear, Normal Breath Sounds, No Accessory Muscle Use Cardiovascular: Normal Peripheral Pulses, Regular Rate, Rhythm, No Edema, No Gallop, No JVD, No Rub, Systolic Murmur GI/Abdominal Exam: Normal Bowel Sounds, Soft, Non-Tender, No Organomegaly, No Distention, No Abnormal Bruit, No Mass Back Exam: Normal Inspection, Full Range of Motion, NT Extremities: Normal Inspection, Normal Range of Motion, No Pedal Edema, Normal Capillary Refill Neurological: Alert, No Motor/Sensory Deficits Psychiatric: Normal Affect Skin Exam: Warm, Dry, Intact, Normal Color, No Rash Course - Vital Signs Last Recorded V/S: Last Vital Signs Temp 36.4 C 08/06/20 06:32 Pulse 70 08/06/20 06:32 Resp 16 08/06/20 06:32 BP 86/69 L 08/06/20 06:32 Pulse Ox 100 08/06/20 06:32 Orthostatic Blood Pressure [ 80/60 Standing] Orthostatic Blood Pressure [ 86/69 Supine] - Orders/Labs/Meds Orders: Active Orders 24 hr Category Date Time Status Orthostatic Vital Signs [RC] STAT Care 08/06/20 06:56 Active CBC WITH MANUAL DIFF [HEME] Stat Lab 08/06/20 07:18 Results COMPREHENSIVE METABOLIC PN,CMP [CHEM] Stat Lab 08/06/20 07:18 Results LIPASE [CHEM] Stat Lab 08/06/20 07:18 Results MAGNESIUM [CHEM] Stat Lab 08/06/20 07:18 Results Labs: Laboratory Tests 08/06/20 08/06/20 Range/Units 07:18 07:18 WBC 2.72 L (3.98-10.04) K/mm3 RBC 4.08 (3.98-5.22) M/mm3 Hgb 12.8 (11.2-15.7) gm/dl Hct 38.5 (34.1-44.9) % MCV 94.4 (79.4-94.8) fl MCH 31.4 (25.6-32.2) pg MCHC 33.2 (32.2-35.5) g/dl RDW Std Deviation 47.0 H (36.4-46.3) fL Plt Count 124 L (182-369) K/mm3 MPV 11.0 (9.4-12.3) fl Sodium 142 (136-145) mEq/L Potassium 4.0 (3.5-5.1) mEq/L Chloride 103 (98-107) mEq/L Carbon Dioxide 28 (21-32) mEq/L Anion Gap 15.0 (5-15) BUN 13 (7-18) mg/dL Creatinine 0.9 (0.55-1.02) mg/dL Est Cr Clr Drug Dosing TNP Estimated GFR (MDRD) > 60 (>60) mL/min BUN/Creatinine Ratio 14.4 (14-18) Glucose 78 (74-106) mg/dL Calcium 8.4 L (8.5-10.1) mg/dL Magnesium 1.8 (1.8-2.4) mg/dl Total Bilirubin 0.4 (0.2-1.0) mg/dL AST 27 (15-37) U/L Alkaline Phosphatase 30 L (46-116) U/L Total Protein 6.9 (6.4-8.2) g/dl Albumin 2.7 L (3.4-5.0) g/dl Globulin 4.2 gm/dL Albumin/Globulin Ratio 0.6 L (1-2) Lipase 93 (73-393) U/L Meds: Medications Discontinued Medications Generic Name Dose Route Start Last Admin Trade Name Freq PRN Reason Stop Dose Admin Sodium Chloride 1,000 mls @ 999 mls/hr 08/06/20 06:57 08/06/20 07:21 Normal Saline IV 08/06/20 07:57 999 mls/hr ONETIME ONE Administration - Re-Assessments/Exams Free Text/Narrative Re-Assessment/Exam: 08/06/20 07:03 As above, the patient was diagnosed with COVID-19 this past Thursday, with symptoms of cough, fever, nausea, and decreased oral intake, treated with bamlamivimab and Solu-Medrol, and now returns to the ED due to continued decreased oral intake of both solids and fluids. Mom states that the patient fell when she got up to use the bathroom yesterday. Here in the ED, she is hypotensive at 86/69, although her physical exam is unremarkable. The patient's mother, understandably, does not feel comfortable taking the patient home. I recommended the following plan; at that we will check some blood work and give IV fluid here in the ED, with the intention of admitting the patient to the hospital when that is done. Once in the hospital, a thin nasogastric feeding tube can be placed in order for the patient to be given enteral feeds. If she continues to not eat, then the surgeon can be consulted to place a PEG tube. The patient's mother agreed. 08/06/20 07:54 The patient's CBC is remarkable for leukopenia of 2.72, and mild thrombocytopenia of 124,000, with the remainder of her CBC being unremarkable. Her CMP is unremarkable. Her magnesium level is within normal limits at 1.8. Her lipase level is within normal limits at 93. The patient's nurse was unable to acquire orthostatics due to non-cooperation. 03/08/21 08:[address] Quigley at 07:56. He is concerned about admitting the patient to the hospital, since she has COVID-19, and would therefore not be permitted a visitor. He is concerned that the patient will become increasingly anxious and disturbed, not likely keep her NG tube placed therefore not be able to be discharged. He is willing to patient into observation, however. He will first try by giving the patient a GI cocktail and IV Protonix, and go from there. Our hospital policy states that the patient may have one visitor, who must remain with the patient the entire time. If the visitor leaves for any reason, they cannot return, and cannot be substituted. 08/06/20 08:24 Repeat BP, after 1 L of IV fluid, is 97/70. The above plan was discussed with the patient's mother, who is agreeable. She stated that the patient was admitted to a hospital for 3 days in the past, and did very well on her own. Departure - Departure Time of Disposition: 08:25 Disposition: Refer to Observation Condition: Fair Clinical Impression: Failure to thrive, Esophagitis, GERD (gastroesophageal reflux disease), Hypotension - Discharge Information *PRESCRIPTION DRUG MONITORING PROGRAM REVIEWED*: Not Applicable *COPY OF PRESCRIPTION DRUG MONITORING REPORT IN PATIENT [place]: Not Applicable Referrals: Tamiko Toledo MD [Primary Care Provider] - Forms: ED Department Discharge Sepsis Event Note (ED) - Evaluation Sepsis Screening Result: No Definite Risk - Focused Exam Vital Signs: Vital Signs Temp Pulse Resp BP Pulse Ox 08/06/20 06:32 36.4 C 70 16 86/69 L 100 - My Orders Last 24 Hours: My Active Orders 08/06/20 06:56 Orthostatic Vital Signs [RC] STAT 08/06/20 07:18 CBC WITH MANUAL DIFF [HEME] Stat COMPREHENSIVE METABOLIC PN,CMP [CHEM] Stat LIPASE [CHEM] Stat MAGNESIUM [CHEM] Stat - Assessment/Plan Last 24 Hours: My Active Orders 08/06/20 06:56 Orthostatic Vital Signs [RC] STAT 08/06/20 07:18 CBC WITH MANUAL DIFF [HEME] Stat COMPREHENSIVE METABOLIC PN,CMP [CHEM] Stat LIPASE [CHEM] Stat MAGNESIUM [CHEM] Stat
[2020-08-06] MEDS ORDERED: Acetaminophen 325 MG Tab PO PRN (09:52)
[2020-08-06] MEDS ORDERED: Ondansetron 4 MG/2 ML SDV IV PRN (09:52)
[2020-08-06] MEDS ORDERED: Dextrose 5%-0.45% NaCl 1,000 ML IV SCH (10:00)
--- NOTE | 2020-08-06 10:54 | PCM.HP.2 ---
H&P History of Present Illness - General Date of Service: 08/06/20 Admit Problem/Dx: Admission Diagnosis/Problem Admission Diagnosis/Problem Failure to thrive - History of Present Illness Initial Comments - Free Text/Narative: 30-year-old female with history of Down syndrome, weight loss, severe GERD with esophagitis, and recently diagnosed with COVID-19 3 days ago. Patient had a decrease in her appetite and is afraid to eat because she is afraid to vomit. Patient has had a 14 to 15 pound weight loss since last year when she was admitted secondary to recurrent emesis. Patient was treated with liquid omep razole for her erosive esophagitis. Mom states that she did have some improvement in her symptoms and got her weight up to 90 pounds, but since she started getting sick last week she has refused to eat or drink. She is also refused to take her omeprazole for last for 5 days. Patient fell yesterday when she got up to use the bathroom. In the emergency department she was found to have hypotension with a systolic blood pressure of 86, otherwise she was afebrile with saturations of 100%. She has no significant respiratory symptoms. - Related Data Allergies/Adverse Reactions: Allergies Allergy/AdvReac Type Severity Reaction Status Date / Time No Known Allergies Allergy Verified 08/03/20 10:27 Home Medications: Home Meds Levothyroxine [Synthroid] 50 mcg PO ACBREAKFAST 08/03/20 [History] Omeprazole 10 ml PO BIDAC 08/03/20 [History] Past Medical History HEENT History: Reports: Hard of Hearing Cardiovascular History: Reports: Afib (paroxysmal), Congenital Septal Defect (ASD + VSD) Other Cardiovascular History: ASD, VSD Respiratory History: Reports: None Gastrointestinal History: Reports: Gastritis, GERD (severe) Other Gastrointestinal History: extreme acid reflux Genitourinary History: Reports: None GUITAR PLAYER History: Reports: None Musculoskeletal History: Reports: None Neurological History: Reports: Other (See Below) (Down syndrome) Psychiatric History: Reports: Anxiety, Depression Other Psychiatric History: Down's Syndrome, tc disorder Endocrine/Metabolic History: Reports: Other (See Below) (Jailene's thyroiditis) Other Endocrine/Metabolic History: Jailene's, elevated TSH Hematologic History: Reports: None Immunologic History: Reports: None Oncologic (Cancer) History: Reports: None Dermatologic History: Reports: None - Infectious Disease History Infectious Disease History: Reports: Novel Coronavirus (dx'd 08/03/2020) - Past Surgical History HEENT Surgical History: Reports: Cataract Surgery (bilateral), Myringotomy w Tube(s) (bilateral) Social & Family History - Family History Family Medical History: No Pertinent Family History - Tobacco Use Tobacco Use Status *Q: Never Tobacco User - Caffeine Use Caffeine Use: Reports: None - Recreational Drug Use Recreational Drug Use: No - Living Situation & Occupation Living situation: Reports: Single, with Family Occupation: Disabled H&P Review of Systems - Review of Systems: Review Of Systems: Comprehensive ROS is negative, except as noted in HPI. Exam - Exam Exam: See Below - Vital Signs Vital Signs: Last Vital Signs Temp 98.2 F 08/06/20 09:54 Pulse 80 08/06/20 09:54 Resp 14 08/06/20 09:54 BP 89/66 L 08/06/20 09:54 Pulse Ox 100 08/06/20 09:54 Orthostatic Blood Pressure [ 80/60 Standing] Orthostatic Blood Pressure [ 86/69 Supine] Weight: 84 lb - Exam Quality Assessment: No: Supplemental Oxygen General: Alert, Oriented, Other (Thin) HEENT: Conjunctiva Clear, EOMI, Mucosa Moist & [place], Posterior Pharynx Clear Neck: Supple, Trachea Midline, 2 Lungs: Clear to Auscultation, Normal Respiratory Effort Cardiovascular: Regular Rate, Regular Rhythm GI/Abdominal Exam: Normal Bowel Sounds, Soft, Non-Tender, No Organomegaly, No Distention, No Abnormal Bruit, No Mass Extremities: Normal Inspection, Normal Range of Motion, Non-Tender, No Pedal Edema, Normal Capillary Refill Skin: Warm, Dry, Intact Neurological: Cranial Nerves Intact Psychiatric: Alert, Normal Affect, Normal Mood - Patient Data Lab Results Last 24 hrs: Laboratory Results - last 24 hr 08/06/20 08/06/20 Range/Units 07:18 07:18 WBC 2.72 L (3.98-10.04) K/mm3 RBC 4.08 (3.98-5.22) M/mm3 Hgb 12.8 (11.2-15.7) gm/dl Hct 38.5 (34.1-44.9) % MCV 94.4 (79.4-94.8) fl MCH 31.4 (25.6-32.2) pg MCHC 33.2 (32.2-35.5) g/dl RDW Std Deviation 47.0 H (36.4-46.3) fL Plt Count 124 L (182-369) K/mm3 MPV 11.0 (9.4-12.3) fl Neutrophils % (Manual) 18 L (40-60) % Band Neutrophils % 8 (0-10) % Lymphocytes % (Manual) 52 H (20-40) % Atypical Lymphs % 9 % Monocytes % (Manual) 13 H (2-10) % Eosinophils % (Manual) 0 L (0.7-5.8) % Basophils % (Manual) 0 L (0.1-1.2) Platelet Estimate Decreased Plt Morphology Comment Normal RBC Morph Comment Normal Sodium 142 (136-145) mEq/L Potassium 4.0 (3.5-5.1) mEq/L Chloride 103 (98-107) mEq/L Carbon Dioxide 28 (21-32) mEq/L Anion Gap 15.0 (5-15) BUN 13 (7-18) mg/dL Creatinine 0.9 (0.55-1.02) mg/dL Est Cr Clr Drug Dosing TNP Estimated GFR (MDRD) > 60 (>60) mL/min BUN/Creatinine Ratio 14.4 (14-18) Glucose 78 (74-106) mg/dL Calcium 8.4 L (8.5-10.1) mg/dL Magnesium 1.8 (1.8-2.4) mg/dl Total Bilirubin 0.4 (0.2-1.0) mg/dL AST 27 (15-37) U/L ALT 16 (14-59) U/L Alkaline Phosphatase 30 L (46-116) U/L Total Protein 6.9 (6.4-8.2) g/dl Albumin 2.7 L (3.4-5.0) g/dl Globulin 4.2 gm/dL Albumin/Globulin Ratio 0.6 L (1-2) Lipase 93 (73-393) U/L Result Diagrams: 08/06/20 07:18 08/06/20 07:18 Sepsis Event Note - Evaluation Sepsis Screening Result: No Definite Risk - Focused Exam Vital Signs: Vital Signs Temp Temp Pulse Pulse Resp BP BP 08/06/20 09:54 98.2 F 80 14 89/66 L 08/06/20 08:20 93/70 08/06/20 06:32 97.5 F 70 16 86/69 L Pulse Ox 08/06/20 09:54 100 08/06/20 08:20 08/06/20 06:32 100 - Problem List (1) Anorexia SNOMED Code(s): 82592623 ICD Code: R63.0 - ANOREXIA Status: Acute Current Visit: Yes (2) Esophagitis SNOMED Code(s): 48874742 ICD Code: K20.90 - ESOPHAGITIS, UNSPECIFIED WITHOUT BLEEDING Status: Acute Current Visit: Yes (3) Failure to thrive SNOMED Code(s): 94414174 ICD Code: BUJ3302 - Status: Acute Current Visit: Yes (4) Hypotension SNOMED Code(s): 22495864 ICD Code: I95.9 - HYPOTENSION, UNSPECIFIED Status: Acute Current Visit: Yes (5) COVID-19 SNOMED Code(s): 089467378 ICD Code: U07.1 - COVID-19 Status: Acute Current Visit: No Problem List Initiated/Reviewed/Updated: Yes Orders Last 24hrs: Active Orders 24 hr Category Date Time Status Patient Status [ADT] Routine ADT 08/06/20 08:46 Active Orthostatic Vital Signs [RC] STAT Care 08/06/20 06:56 Active Oxygen Therapy [RC] PRN Care 08/06/20 09:52 Active Up With Assistance [RC] ASDIRECTED Care 08/06/20 09:52 Active VTE/DVT Education [RC] PER UNIT ROUTINE Care 08/06/20 09:52 Active Vital Signs [RC] ,,, Care 08/06/20 09:52 Active Consult to Senior Dot Net Developer [CONS] Routine Cons 08/06/20 09:52 Active OT Evaluation and Treatment [CONS] Routine Cons 08/06/20 09:52 Active PT Evaluation and Treatment [CONS] Routine Cons 08/06/20 09:52 Active Clear Liquid Diet [DIET] Diet 08/06/20 Lunch Active CBC WITH AUTO DIFF [HEME] AM Lab 08/07/20 05:11 Ordered COMPREHENSIVE METABOLIC PN,CMP [CHEM] AM Lab 08/07/20 05:11 Ordered MAGNESIUM [CHEM] AM Lab 08/07/20 05:11 Ordered PHOSPHORUS [CHEM] AM Lab 08/07/20 05:11 Ordered Acetaminophen [TylenoL] Med 08/06/20 09:52 Active 650 mg PO Q4H PRN Dextrose 5%-0.45% NaCl [Dextrose 5%-1/2 NS] 1,000 ml Med 08/06/20 10:00 Active IV ASDIRECTED Enoxaparin [Lovenox] Med 08/07/20 09:00 Pending 40 mg SUBCUT DAILY Ondansetron [Zofran] Med 08/06/20 09:52 Active 4 mg IV Q4H PRN Pantoprazole [ProTONIX IV] Med 08/06/20 10:00 Active 40 mg IVPUSH Q12H Resuscitation Status Routine Resus Stat 08/06/20 09:52 Ordered Medication Orders Acetaminophen (Tylenol) 650 mg PO Q4H PRN PRN Reason: Pain (Mild 1-3)/fever Enoxaparin Sodium (Lovenox) 40 mg SUBCUT DAILY LISA Dextrose/Sodium Chloride (Dextrose 5%-1/2 Ns) 1,000 mls @ 75 mls/hr IV ASDIRECTED LISA Ondansetron HCl (Zofran) 4 mg IV Q4H PRN PRN Reason: Nausea/Vomiting Pantoprazole Sodium (Protonix Iv) 40 mg IVPUSH Q12H LISA Assessment/Plan Comment:: Assessment 30-year-old female with Down syndrome has had a 15 pound weight loss over the last year when she was admitted for similar episode. Last year patient had a CT of the abdomen, EGD, colonoscopy, and was found to have erosive gastritis. Patient was also found to be self inducing vomiting by sticking her finger down her throat. When asked why she was doing that she states that she was anxious and it made her feel better. She was seen by psychiatry at that time. 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 Failure to thrive Down syndrome Jailene's hypothyroidism Hypotension * Received bamlamivimab, Solu-Medrol, Pepcid, epinephrine, diphenhydramine and discharged home 3 days ago for COVID-19 infection * [employer] out of [facility] in [place], [place] * 15 pound weight loss from last hospitalization in August 2019 * No longer on duloxetine * Currently on omeprazole 10 mg liquid daily but has not been taking it for the last for 5 days * Patient may need PEG tube placement secondary to chronic anorexia and weight loss Plan * Refer for observation * Protonix 40 mg IV every 12 hours * D5 half-normal saline at 75 mL an hour * Nutrition consult * PT OT consult * Respiratory isolation * Considered surgical consult for PEG placement if patient does not increase oral intake * Patient will likely need long-term nutritional support since she developed a phobia of swallowing. She will likely pull the NG tube out and it does not encourage her to take orally. * CODE STATUS: Full code * VTE prophylaxis with Lovenox - Mortality Measure Prognosis:: Good
[2020-08-06] MEDS: Pantoprazole 40 MG Vial IVPUSH SCH ×2 (11:42→22:46)
[2020-08-06] MEDS: Acetaminophen 325 MG/10.15 ML ML PO PRN (22:47)
[2020-08-06] MEDS ORDERED: D5 1/2 NS w/ 20 mEq/L KCl 1,000 ML IV SCH (23:45)
[2020-08-07] MEDS ORDERED: OMEPRAZOLE PO SCH (06:00)
[2020-08-07] MEDS: Enoxaparin 30 MG/0.3 ML Syringe SUBCUT SCH (08:41)
[2020-08-07] MEDS: Pantoprazole 40 MG Vial IVPUSH SCH ×2 (09:07→21:52)
[2020-08-07] MEDS: Potassium Chloride 10 MEQ in Premix Bag 1 BAG IV SCH ×4 (09:08→12:54)
[2020-08-07] MEDS: Levothyroxine 50 MCG **PTOM PO SCH (09:27)
--- NOTE | 2020-08-07 12:14 | PCM.PN ---
- General Info Date of Service: 08/07/20 Admission Dx/Problem (Free Text): Admission Diagnosis/Problem Admission Diagnosis/Problem Failure to thrive Subjective Update: Patient continues to refuse to eat. She did eat a little bit yesterday and ended up with dry heaves for an hour afterward. Weight has increased 1 pound likely secondary to fluid/rehydration. - Review of Systems General: Reports: Other (Does not communicate review of systems.) - Patient Data Vitals - Most Recent: Last Vital Signs Temp 97.5 F 08/07/20 11:50 Pulse 67 08/07/20 11:50 Resp 14 08/07/20 11:50 BP 109/88 08/07/20 11:50 Pulse Ox 97 08/07/20 11:50 Orthostatic Blood Pressure [ 80/60 Standing] Orthostatic Blood Pressure [ 86/69 Supine] Weight - Most Recent: 87 lb 12.8 oz I&O - Last 24 Hours: Intake & Output 08/06/20 08/07/20 08/07/20 22:59 06:59 14:59 Intake Total 475 1386 Output Total 700 Balance 475 686 Lab Results Last 24 Hours: Laboratory Results - last 24 hr 08/07/20 08/07/20 Range/Units 04:55 04:55 WBC 3.14 L (3.98-10.04) K/mm3 RBC 4.07 (3.98-5.22) M/mm3 Hgb 12.7 (11.2-15.7) gm/dl Hct 38.4 (34.1-44.9) % MCV 94.3 (79.4-94.8) fl MCH 31.2 (25.6-32.2) pg MCHC 33.1 (32.2-35.5) g/dl RDW Std Deviation 46.4 H (36.4-46.3) fL Plt Count 115 L (182-369) K/mm3 MPV 10.4 (9.4-12.3) fl Neut % (Auto) 21.7 L (34.0-71.1) % Lymph % (Auto) 57.0 H (19.3-51.7) % [place] % (Auto) 15.9 H (4.7-12.5) % Eos % (Auto) 0.6 L (0.7-5.8) Baso % (Auto) 1.0 (0.1-1.2) % Neut # (Auto) 0.68 L (1.56-6.13) K/mm3 Lymph # (Auto) 1.79 (1.18-3.74) K/mm3 [place] # (Auto) 0.50 H (0.24-0.36) K/mm3 Eos # (Auto) 0.02 L (0.04-0.36) K/mm3 Baso # (Auto) 0.03 (0.01-0.08) K/mm3 Manual Slide Review Abnormal smear Sodium 147 H (136-145) mEq/L Potassium 3.3 L (3.5-5.1) mEq/L Chloride 110 H (98-107) mEq/L Carbon Dioxide 27 (21-32) mEq/L Anion Gap 13.3 (5-15) BUN 9 (7-18) mg/dL Creatinine 0.9 (0.55-1.02) mg/dL Est Cr Clr Drug Dosing 55.26 mL/min Estimated GFR (MDRD) > 60 (>60) mL/min BUN/Creatinine Ratio 10.0 L (14-18) Glucose 99 (74-106) mg/dL Calcium 8.0 L (8.5-10.1) mg/dL Phosphorus 2.8 (2.6-4.7) mg/dL Magnesium 1.6 L (1.8-2.4) mg/dl Total Bilirubin 0.3 (0.2-1.0) mg/dL AST 23 (15-37) U/L ALT 15 (14-59) U/L Alkaline Phosphatase 28 L (46-116) U/L Total Protein 6.1 L (6.4-8.2) g/dl Albumin 2.4 L (3.4-5.0) g/dl Globulin 3.7 gm/dL Albumin/Globulin Ratio 0.7 L (1-2) Med Orders - Current: Current Medications Acetaminophen (Tylenol) 650 mg PO Q4H PRN PRN Reason: Pain/Fever Last Admin: 08/06/20 22:47 Dose: 650 mg Documented by: Enoxaparin Sodium (Lovenox) 30 mg SUBCUT DAILY [facility] Last Admin: 08/07/20 08:41 Dose: 30 mg Documented by: Potassium Chloride/Dextrose/Sod Cl (D5 1/2 Ns W/ 20 Meq/L Kcl) 1,000 mls @ 75 mls/hr IV ASDIRECTED [facility] Last Admin: 08/06/20 23:51 Dose: 75 mls/hr Documented by: Non-Formulary Medication (Levothyroxine [Synthroid]) 50 mcg PO ACBREAKFAST [facility] Last Admin: 08/07/20 09:27 Dose: 50 mcg Documented by: Ondansetron HCl (Zofran) 4 mg IV Q4H PRN PRN Reason: Nausea/Vomiting Pantoprazole Sodium (Protonix Iv) 40 mg IVPUSH Q12H [facility] Last Admin: 08/07/20 09:07 Dose: 40 mg Documented by: Discontinued Medications Acetaminophen (Tylenol) 650 mg PO Q4H PRN PRN Reason: Pain (Mild 1-3)/fever Sodium Chloride (Normal Saline) 1,000 mls @ 999 mls/hr IV ONETIME ONE Stop: 08/06/20 07:57 Last Admin: 08/06/20 07:21 Dose: 999 mls/hr Documented by: Dextrose/Sodium Chloride (Dextrose 5%-1/2 Ns) 1,000 mls @ 75 mls/hr IV ASDIRECTED [facility] Last Admin: 08/06/20 11:58 Dose: 75 mls/hr Documented by: - Exam Quality Assessment: No: Supplemental Oxygen General: Alert HEENT: Pupils Equal, Mucous Membr. Moist/[place] Neck: Supple Lungs: Clear to Auscultation, Normal Respiratory Effort Cardiovascular: Regular Rate, Regular Rhythm GI/Abdominal Exam: Normal Bowel Sounds, Soft, Non-Tender, No Organomegaly, No Distention, No Abnormal Bruit Extremities: Normal Inspection, Normal Range of Motion, Non-Tender, No Pedal Edema, Normal Capillary Refill Peripheral Pulses: 2+: Dorsalis Pedis (L), Dorsalis Pedis (R) Skin: Warm, Dry, Intact Psy/Mental Status: Alert, Normal Affect, Normal Mood - Patient Data Lab Results Last 24 hrs: Laboratory Results - last 24 hr 08/07/20 08/07/20 Range/Units 04:55 04:55 WBC 3.14 L (3.98-10.04) K/mm3 RBC 4.07 (3.98-5.22) M/mm3 Hgb 12.7 (11.2-15.7) gm/dl Hct 38.4 (34.1-44.9) % MCV 94.3 (79.4-94.8) fl MCH 31.2 (25.6-32.2) pg MCHC 33.1 (32.2-35.5) g/dl RDW Std Deviation 46.4 H (36.4-46.3) fL Plt Count 115 L (182-369) K/mm3 MPV 10.4 (9.4-12.3) fl Neut % (Auto) 21.7 L (34.0-71.1) % Lymph % (Auto) 57.0 H (19.3-51.7) % [place] % (Auto) 15.9 H (4.7-12.5) % Eos % (Auto) 0.6 L (0.7-5.8) Baso % (Auto) 1.0 (0.1-1.2) % Neut # (Auto) 0.68 L (1.56-6.13) K/mm3 Lymph # (Auto) 1.79 (1.18-3.74) K/mm3 [place] # (Auto) 0.50 H (0.24-0.36) K/mm3 Eos # (Auto) 0.02 L (0.04-0.36) K/mm3 Baso # (Auto) 0.03 (0.01-0.08) K/mm3 Manual Slide Review Abnormal smear Sodium 147 H (136-145) mEq/L Potassium 3.3 L (3.5-5.1) mEq/L Chloride 110 H (98-107) mEq/L Carbon Dioxide 27 (21-32) mEq/L Anion Gap 13.3 (5-15) BUN 9 (7-18) mg/dL Creatinine 0.9 (0.55-1.02) mg/dL Est Cr Clr Drug Dosing 55.26 mL/min Estimated GFR (MDRD) > 60 (>60) mL/min BUN/Creatinine Ratio 10.0 L (14-18) Glucose 99 (74-106) mg/dL Calcium 8.0 L (8.5-10.1) mg/dL Phosphorus 2.8 (2.6-4.7) mg/dL Magnesium 1.6 L (1.8-2.4) mg/dl Total Bilirubin 0.3 (0.2-1.0) mg/dL AST 23 (15-37) U/L ALT 15 (14-59) U/L Alkaline Phosphatase 28 L (46-116) U/L Total Protein 6.1 L (6.4-8.2) g/dl Albumin 2.4 L (3.4-5.0) g/dl Globulin 3.7 gm/dL Albumin/Globulin Ratio 0.7 L (1-2) Result Diagrams: 08/07/20 04:55 08/07/20 04:55 Sepsis Event Note - Evaluation Sepsis Screening Result: No Definite Risk - Focused Exam Vital Signs: Vital Signs Temp Pulse Resp BP Pulse Ox 08/07/20 11:50 97.5 F 67 14 109/88 97 08/07/20 08:39 97.7 F 64 16 90/63 100 08/07/20 06:31 97.5 F 55 L 99 08/07/20 06:30 98.2 F 65 16 97/60 99 - Problem List & Annotations (1) Anorexia SNOMED Code(s): 55227969 Code(s): R63.0 - ANOREXIA Status: Acute Current Visit: Yes (2) Esophagitis SNOMED Code(s): 49342520 Code(s): K20.90 - ESOPHAGITIS, UNSPECIFIED WITHOUT BLEEDING Status: Acute Current Visit: Yes (3) Failure to thrive SNOMED Code(s): 20923613 Code(s): LLF1216 - Status: Acute Current Visit: Yes (4) Hypotension SNOMED Code(s): 06409031 Code(s): I95.9 - HYPOTENSION, UNSPECIFIED Status: Acute Current Visit: Yes (5) COVID-19 SNOMED Code(s): 635325703 Code(s): U07.1 - COVID-19 Status: Acute Current Visit: No - Problem List Review Problem List Initiated/Reviewed/Updated: Yes - My Orders Last 24 Hours: My Active Orders 08/06/20 Dinner Regular Diet [DIET] 08/06/20 22:36 Acetaminophen [Tylenol] 650 mg PO Q4H PRN 08/07/20 06:00 Non-Formulary Medication [NF Drug] 1 each PO BIDAC 08/07/20 09:00 Enoxaparin [Lovenox] 30 mg SUBCUT DAILY Levothyroxine [Synthroid] 50 mcg PO ACBREAKFAST Potassium Chloride [KCl in Water 10 MEQ/100 ML] 10 meq Premix Bag 1 bag IV Q1H 08/07/20 09:27 Notify Provider Consults [RC] ASDIRECTED Consult to Physician [CONS] Routine 08/07/20 11:10 Admission Status [Patient Status] [ADT] Routine 08/07/20 11:45 Dextrose 5% in Water 1,000 ml IV ASDIRECTED 08/07/20 13:00 Magnesium Sulfate/Water [Magnesium Sulfate in Water 4 GM/50 ML] 4 gm Premix Bag 1 bag IV ONETIME - Plan Plan:: 08/06/2020 Assessment 30-year-old female with Down syndrome has had a 15 pound weight loss over the last year when she was admitted for similar episode. Last year patient had a CT of the abdomen, EGD, colonoscopy, and was found to have erosive gastritis. Patient was also found to be self inducing vomiting by sticking her finger down her throat. When asked why she was doing that she states that she was anxious and it made her feel better. She was seen by psychiatry at that time. 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[place], [place] * 15 pound weight loss from last hospitalization in August 2019 * No longer on duloxetine * Currently on omeprazole 10 mg liquid daily but has not been taking it for the last for 5 days * Patient may need PEG tube placement secondary to chronic anorexia and weight loss Plan * Refer for observation * Protonix 40 mg IV every 12 hours * D5 half-normal saline at 75 mL an hour * Nutrition consult * PT OT consult * Respiratory isolation * Considered surgical consult for PEG placement if patient does not increase oral intake * Patient will likely need long-term nutritional support since she developed a phobia of swallowing. She will likely pull the NG tube out and it does not encourage her to take orally. * CODE STATUS: Full code * VTE prophylaxis with Lovenox 08/07/2020 Patient did not tolerate any oral intake yesterday. After discussion with her mother she would like to progress with feeding tube placement. Dietary recommends a J-tube secondary to her severe reflux. Dr. Harding and surgery will be consulted. We will request old records in regards to her gastrointestinal studies. These include EGD, colonoscopy, CT scan, and notes from her brancher at [facility]. Patient did have some hypernatremia today so her fluids will be switched to D5 W with 20 mEq of KCl. She will also get 40 mEq of KCl IV throughout today. She will continue on respiratory isolation for her COVID-19 infection. Patient continues to be asymptomatic in regards to respiratory symptoms of COVID-19. Continue daily weights. Continue Protonix 40 mg IV every 12 hours. Patient refused her levothyroxine this morning.
[2020-08-07] MEDS ORDERED: Magnesium Sulfate/Water 4 GM in Premix Bag 1 BAG IV ONE (13:00)
[2020-08-07] MEDS: Dextrose 5% in Water 1,000 ML IV SCH ×2 (13:11→21:51)
[2020-08-07] MEDS ORDERED: Sodium Chloride 0.9% 500 ML IV ONE (22:14)
[2020-08-07] MEDS ORDERED: Sodium Chloride 0.9% 1,000 ML ONE (22:23)
[2020-08-08] MEDS: Levothyroxine 50 MCG **PTOM PO SCH (05:40)
[2020-08-08] MEDS: Pantoprazole 40 MG Vial IVPUSH SCH ×2 (09:28→21:20)
[2020-08-08] MEDS: Dextrose 5% in Water 1,000 ML IV SCH ×2 (09:29→21:20)
[2020-08-08] MEDS: Enoxaparin 30 MG/0.3 ML Syringe SUBCUT SCH (09:29)
[2020-08-08] MEDS: Acetaminophen 325 MG/10.15 ML ML PO PRN (11:12)
--- NOTE | 2020-08-08 11:58 | PCM.PN ---
- General Info Date of Service: 08/08/20 Admission Dx/Problem (Free Text): Admission Diagnosis/Problem Admission Diagnosis/Problem Failure to thrive Subjective Update: Patient only tolerated a few bites of mashed potatoes yesterday and gagged afterwards for close to an hour. Patient then last night had an episode of hypotension Functional Status: Reports: Other (Unable to give a review of systems) - Patient Data Vitals - Most Recent: Last Vital Signs Temp 98.6 F 08/08/20 11:18 Pulse 84 08/08/20 11:18 Resp 16 08/08/20 11:18 BP 96/52 L 08/08/20 11:18 Pulse Ox 100 08/08/20 11:18 Orthostatic Blood Pressure [ 80/60 Standing] Orthostatic Blood Pressure [ 86/69 Supine] Weight - Most Recent: 89 lb 6.4 oz I&O - Last 24 Hours: Intake & Output 08/07/20 08/08/20 08/08/20 22:59 06:59 14:59 Intake Total 1640 2074 0 Output Total 750 900 Balance 890 1174 0 Lab Results Last 24 Hours: Laboratory Results - last 24 hr 08/08/20 08/08/20 Range/Units 08:38 08:38 WBC 3.51 L (3.98-10.04) K/mm3 RBC 3.82 L (3.98-5.22) M/mm3 Hgb 12.1 (11.2-15.7) gm/dl Hct 36.5 (34.1-44.9) % MCV 95.5 H (79.4-94.8) fl MCH 31.7 (25.6-32.2) pg MCHC 33.2 (32.2-35.5) g/dl RDW Std Deviation 48.1 H (36.4-46.3) fL Plt Count 138 L (182-369) K/mm3 MPV 11.1 (9.4-12.3) fl Neut % (Auto) 32.3 L (34.0-71.1) % Lymph % (Auto) 50.7 (19.3-51.7) % [place] % (Auto) 14.8 H (4.7-12.5) % Eos % (Auto) 1.1 (0.7-5.8) Baso % (Auto) 1.1 (0.1-1.2) % Neut # (Auto) 1.13 L (1.56-6.13) K/mm3 Lymph # (Auto) 1.78 (1.18-3.74) K/mm3 [place] # (Auto) 0.52 H (0.24-0.36) K/mm3 Eos # (Auto) 0.04 (0.04-0.36) K/mm3 Baso # (Auto) 0.04 (0.01-0.08) K/mm3 Sodium 145 (136-145) mEq/L Potassium 4.0 (3.5-5.1) mEq/L Chloride 109 H (98-107) mEq/L Carbon Dioxide 31 (21-32) mEq/L Anion Gap 9.0 (5-15) BUN 3 L (7-18) mg/dL Creatinine 0.9 (0.55-1.02) mg/dL Est Cr Clr Drug Dosing 57.45 mL/min Estimated GFR (MDRD) > 60 (>60) mL/min BUN/Creatinine Ratio 3.3 L (14-18) Glucose 107 H (74-106) mg/dL Calcium 8.0 L (8.5-10.1) mg/dL Phosphorus 2.5 L (2.6-4.7) mg/dL Magnesium 2.2 (1.8-2.4) mg/dl Total Bilirubin 0.3 (0.2-1.0) mg/dL AST 18 (15-37) U/L ALT 15 (14-59) U/L Alkaline Phosphatase 25 L (46-116) U/L Total Protein 6.0 L (6.4-8.2) g/dl Albumin 2.3 L (3.4-5.0) g/dl Globulin 3.7 gm/dL Albumin/Globulin Ratio 0.6 L (1-2) Med Orders - Current: Current Medications Acetaminophen (Tylenol) 650 mg PO Q4H PRN PRN Reason: Pain/Fever Last Admin: 08/08/20 11:12 Dose: 650 mg Documented by: Enoxaparin Sodium (Enoxaparin 30 Mg/0.3 Ml Syringe) 30 mg SUBCUT DAILY [facility] Last Admin: 08/08/20 09:29 Dose: 30 mg Documented by: Potassium Chloride/Dextrose/Sod Cl (D5 1/2 Ns W/ 20 Meq/L Kcl) 1,000 mls @ 75 mls/hr IV ASDIRECTED [facility] Last Admin: 08/06/20 23:51 Dose: 75 mls/hr Documented by: Potassium Chloride 10 meq/ (Premix) 100 mls @ 100 mls/hr IV Q1H [facility] Stop: 08/07/20 12:59 Last Admin: 08/07/20 12:54 Dose: 100 mls/hr Documented by: Magnesium Sulfate 4 gm/ Premix 50 mls @ 12.5 mls/hr IV ONETIME ONE Stop: 08/07/20 16:59 Last Admin: 08/07/20 14:14 Dose: 12.5 mls/hr Documented by: Levothyroxine 50 Mcg (Ptom) 50 mcg PO ACBREAKFAST [facility] Last Admin: 08/08/20 05:40 Dose: Not Given Documented by: Ondansetron HCl (Zofran) 4 mg IV Q4H PRN PRN Reason: Nausea/Vomiting Last Admin: 08/07/20 18:32 Dose: 4 mg Documented by: Pantoprazole Sodium (Pantoprazole 40 Mg Vial) 40 mg IVPUSH Q12H [facility] Last Admin: 08/08/20 09:28 Dose: 40 mg Documented by: Discontinued Medications Acetaminophen (Tylenol) 650 mg PO Q4H PRN PRN Reason: Pain (Mild 1-3)/fever Sodium Chloride (Normal Saline) 1,000 mls @ 999 mls/hr IV ONETIME ONE Stop: 08/06/20 07:57 Last Admin: 08/06/20 07:21 Dose: 999 mls/hr Documented by: Dextrose/Sodium Chloride (Dextrose 5%-1/2 Ns) 1,000 mls @ 75 mls/hr IV ASDIR ECTED [facility] Last Admin: 08/06/20 11:58 Dose: 75 mls/hr Documented by: - Exam Quality Assessment: No: Supplemental Oxygen General: Alert, Other ([place]) HEENT: Pupils Equal, Mucous Membr. Moist/[place] Neck: Supple Cardiovascular: Regular Rate, Regular Rhythm GI/Abdominal Exam: Soft, Non-Tender, No Organomegaly, No Distention, No Abnormal Bruit, Abnormal Bowel Sounds (Decreased) Extremities: Normal Inspection, Normal Range of Motion, Non-Tender, No Pedal Edema, Normal Capillary Refill Skin: Warm, Dry, Intact Psy/Mental Status: Alert, Normal Affect, Normal Mood - Patient Data Lab Results Last 24 hrs: Laboratory Results - last 24 hr 08/08/20 08/08/20 Range/Units 08:38 08:38 WBC 3.51 L (3.98-10.04) K/mm3 RBC 3.82 L (3.98-5.22) M/mm3 Hgb 12.1 (11.2-15.7) gm/dl Hct 36.5 (34.1-44.9) % MCV 95.5 H (79.4-94.8) fl MCH 31.7 (25.6-32.2) pg MCHC 33.2 (32.2-35.5) g/dl RDW Std Deviation 48.1 H (36.4-46.3) fL Plt Count 138 L (182-369) K/mm3 MPV 11.1 (9.4-12.3) fl Neut % (Auto) 32.3 L (34.0-71.1) % Lymph % (Auto) 50.7 (19.3-51.7) % [place] % (Auto) 14.8 H (4.7-12.5) % Eos % (Auto) 1.1 (0.7-5.8) Baso % (Auto) 1.1 (0.1-1.2) % Neut # (Auto) 1.13 L (1.56-6.13) K/mm3 Lymph # (Auto) 1.78 (1.18-3.74) K/mm3 [place] # (Auto) 0.52 H (0.24-0.36) K/mm3 Eos # (Auto) 0.04 (0.04-0.36) K/mm3 Baso # (Auto) 0.04 (0.01-0.08) K/mm3 Sodium 145 (136-145) mEq/L Potassium 4.0 (3.5-5.1) mEq/L Chloride 109 H (98-107) mEq/L Carbon Dioxide 31 (21-32) mEq/L Anion Gap 9.0 (5-15) BUN 3 L (7-18) mg/dL Creatinine 0.9 (0.55-1.02) mg/dL Est Cr Clr Drug Dosing 57.45 mL/min Estimated GFR (MDRD) > 60 (>60) mL/min BUN/Creatinine Ratio 3.3 L (14-18) Glucose 107 H (74-106) mg/dL Calcium 8.0 L (8.5-10.1) mg/dL Phosphorus 2.5 L (2.6-4.7) mg/dL Magnesium 2.2 (1.8-2.4) mg/dl Total Bilirubin 0.3 (0.2-1.0) mg/dL AST 18 (15-37) U/L ALT 15 (14-59) U/L Alkaline Phosphatase 25 L (46-116) U/L Total Protein 6.0 L (6.4-8.2) g/dl Albumin 2.3 L (3.4-5.0) g/dl Globulin 3.7 gm/dL Albumin/Globulin Ratio 0.6 L (1-2) Result Diagrams: 08/08/20 08:38 08/08/20 08:38 Sepsis Event Note - Evaluation Sepsis Screening Result: No Definite Risk - Focused Exam Vital Signs: Vital Signs Temp Pulse Resp BP Pulse Ox 08/08/20 11:18 98.6 F 84 16 96/52 L 100 08/08/20 08:30 98.2 F 73 16 111/69 97 08/08/20 05:05 93/64 - Problem List & Annotations (1) Anorexia SNOMED Code(s): 73882852 Code(s): R63.0 - ANOREXIA Status: Acute Current Visit: Yes (2) Esophagitis SNOMED Code(s): 64526570 Code(s): K20.90 - ESOPHAGITIS, UNSPECIFIED WITHOUT BLEEDING Status: Acute Current Visit: Yes (3) Failure to thrive SNOMED Code(s): 96107809 Code(s): TLH5683 - Status: Acute Current Visit: Yes (4) Hypotension SNOMED Code(s): 62709381 Code(s): I95.9 - HYPOTENSION, UNSPECIFIED Status: Acute Current Visit: Yes (5) COVID-19 SNOMED Code(s): 945747273 Code(s): U07.1 - COVID-19 Status: Acute Current Visit: No - Problem List Review Problem List Initiated/Reviewed/Updated: Yes - My Orders Last 24 Hours: My Active Orders 08/07/20 11:10 Admission Status [Patient Status] [ADT] Routine 08/07/20 11:45 Dextrose 5% in Water 1,000 ml IV ASDIRECTED 08/08/20 11:38 Influenza Vaccine Charge [RC] .DISCHARGE 08/08/20 12:30 Flu Vacc [id number](6Mos Up)/Pf [Fluzone Quad Syringe] 60 mcg IM .ONCE ONE 08/08/20 Dinner Regular Diet [DIET] 08/09/20 06:00 Levothyroxine [Synthroid] 50 mcg PO ACBREAKFAST - Plan Plan:: 08/06/2020 Assessment 30-year-old female with Down syndrome has had a 15 pound weight loss over the last year when she was admitted for similar episode. Last year patient had a CT of the abdomen, EGD, colonoscopy, and was found to have erosive gastritis. Patient was also found to be self inducing vomiting by sticking her finger down her throat. When asked why she was doing that she states that she was anxious and it made her feel better. She was seen by psychiatry at that time. 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[place], [place] * 15 pound weight loss from last hospitalization in August 2019 * No longer on duloxetine * Currently on omeprazole 10 mg liquid daily but has not been taking it for the last for 5 days * Patient may need PEG tube placement secondary to chronic anorexia and weight loss Plan * Refer for observation * Protonix 40 mg IV every 12 hours * D5 half-normal saline at 75 mL an hour * Nutrition consult * PT OT consult * Respiratory isolation * Considered surgical consult for PEG placement if patient does not increase oral intake * Patient will likely need long-term nutritional support since she developed a phobia of swallowing. She will likely pull the NG tube out and it does not encourage her to take orally. * CODE STATUS: Full code * VTE prophylaxis with Lovenox 08/07/2020 Patient did not tolerate any oral intake yesterday. After discussion with her mother she would like to progress with feeding tube placement. Dietary recommends a J-tube secondary to her severe reflux. Dr. Harding and surgery will be consulted. We will request old records in regards to her gastrointestinal studies. These include EGD, colonoscopy, CT scan, and notes from her agricultural engineering technicians at [facility]. Patient did have some hypernatremia today so her fluids will be switched to D5 W with 20 mEq of KCl. She will also get 40 mEq of KCl IV throughout today. She will continue on respiratory isolation for her COVID-19 infection. Patient continues to be asymptomatic in regards to respiratory symptoms of COVID-19. Continue daily weights. Continue Protonix 40 mg IV every 12 hours. Patient refused her levothyroxine this m orning. 08/08/2020 Patient had another day of very poor oral intake. She also had hypotensive episode last night even though she has been getting maintenance fluids. Patient has a history of reflux with erosive esophagitis. She also has history of bulimia last year. There is great concern that she will need a feeding tube placed distally to the stomach secondary to her gagging and retching every time she has anything on her stomach. Unfortunately, Dr. Harding was tied up yesterday with emergency surgeries all day and was unable to see her yesterday. He plans on seeing her today. Electrolytes today are back to normal, but we will continue to have to follow those with her poor oral intake. Discharge will likely be next week and may need to be to a [facility] facility. Mother is unsure if she will be able to take care of her at home. Plan: Await Dr. Winter stovall's consult. Continue IV fluids and encourage oral intake. Continue respiratory isolation for COVID-19.
[2020-08-08] MEDS ORDERED: FLU VACC QS2020-21(6MOS UP)/PF 60 MCG/0.5 ML SYRINGE IM ONE (12:30)
--- NOTE | 2020-08-08 18:11 | PCM.CONS ---
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 She has formed a habit of throwing up food every time she eats. Initially she went to [facility] for eso phageal lesions that were noted on an EGD in mid 2019. these lesions were not found at [facility] EGD but the patient was found to have severe esophagitis. At this point, she had been accustomed to eating and immediately retching and vomiting the food. She was losing weight and failing to thrive. At [place] a feeding tube was suggested, the mother did not want to proceed at the time. Once she started the patient on Liquid Omeprazole, she started eating blended foods better and started to gain weight. This was back in Mar 2020. She did well for several months and then started to regress. on 07/30 she started exhibiting symptoms of Covid-19 and lost a sense of taste and smell. Since that time she has refused to eat. If she does eat, she takes very little and tries to throw it up. She was brought to the Ed for N/V. Now her mother would like to have G-tube placed so that the patient does not deteriorate further. She has not had any prior abdominal operations. Onset of Symptoms: Reports: Gradual Duration of Symptoms: Reports: Waxing/Waning Location: Reports: Abdomen - Related Data Allergies/Adverse Reactions: Allergies Allergy/AdvReac Type Severity Reaction Status Date / Time No Known Allergies Allergy Verified 08/03/20 10:27 Home Medications: Home Meds Levothyroxine [Synthroid] 50 mcg PO ACBREAKFAST 08/03/20 [History] Omeprazole 10 ml PO BIDAC 08/03/20 [History] Past Medical History HEENT History: Reports: Hard of Hearing Cardiovascular History: Reports: Afib, Congenital Septal Defect Other Cardiovascular History: ASD, VSD Respiratory History: Reports: None Gastrointestinal History: Reports: Gastritis, GERD Other Gastrointestinal History: extreme acid reflux Genitourinary History: Reports: None ON LINE CSR History: Reports: None Musculoskeletal History: Reports: None Neurological History: Reports: Other (See Below) Psychiatric History: Reports: Anxiety, Depression, Eating Disorders Other Psychiatric History: Down's Syndrome, tc disorder Endocrine/Metabolic History: Reports: Other (See Below) Other Endocrine/Metabolic History: Jailene's, elevated TSH Hematologic History: Reports: None Immunologic History: Reports: None Oncologic (Cancer) History: Reports: None Dermatologic History: Reports: None - Infectious Disease History Infectious Disease History: Reports: Novel Coronavirus - Past Surgical History Head Surgeries/Procedures: Reports: None HEENT Surgical History: Reports: Cataract Surgery, Myringotomy w Tube(s) Cardiovascular Surgical History: Reports: None Respiratory Surgical History: Reports: None GI Surgical History: Reports: None, Colonoscopy, EGD Other GI Surgeries/Procedures: colonoscopy 07/2019. EGD 2019 Female Surgical History: Reports: None Endocrine Surgical History: Reports: None Neurological Surgical History: Reports: None Musculoskeletal Surgical History: Reports: None Oncologic Surgical History: Reports: None Dermatological Surgical History: Reports: None Social & Family History - Family History Family Medical History: No Pertinent Family History - Tobacco Use Tobacco Use Status *Q: Never Tobacco User - Caffeine Use Caffeine Use: Reports: None - Recreational Drug Use Recreational Drug Use: No - Living Situation & Occupation Living situation: Reports: Single, with Family Occupation: Disabled H&P Review of Systems - Review of Systems: Review Of Systems: See Below General: Reports: No Symptoms HEENT: Reports: No Symptoms Pulmonary: Reports: No Symptoms Cardiovascular: Reports: Other (murmur) Gastrointestinal: Reports: No Symptoms Genitourinary: Reports: No Symptoms Musculoskeletal: Reports: No Symptoms Skin: Reports: No Symptoms Psychiatric: Reports: No Symptoms Neurological: Reports: No Symptoms Hematologic/Lymphatic: Reports: No Symptoms Immunologic: Reports: No Symptoms Exam - Exam Exam: See Below - Vital Signs Vital Signs: Last Vital Signs Temp 98.8 F 08/08/20 16:10 Pulse 64 08/08/20 16:10 Resp 16 08/08/20 16:10 BP 90/53 L 08/08/20 16:10 Pulse Ox 100 08/08/20 16:10 Orthostatic Blood Pressure [ 80/60 Standing] Orthostatic Blood Pressure [ 86/69 Supine] Weight: 40.551 kg - Exam General: Alert, Oriented, Cooperative Lungs: Clear to Auscultation, Normal Respiratory Effort Cardiovascular: Regular Rate, Regular Rhythm, Normal S1, Normal S2, Systolic Murmur GI/Abdominal Exam: Soft, Non-Tender, No Distention, No Abnormal Bruit - Patient Data Lab Results Last 24 hrs: Laboratory Results - last 24 hr 08/08/20 08/08/20 Range/Units 08:38 08:38 WBC 3.51 L (3.98-10.04) K/mm3 RBC 3.82 L (3.98-5.22) M/mm3 Hgb 12.1 (11.2-15.7) gm/dl Hct 36.5 (34.1-44.9) % MCV 95.5 H (79.4-94.8) fl MCH 31.7 (25.6-32.2) pg MCHC 33.2 (32.2-35.5) g/dl RDW Std Deviation 48.1 H (36.4-46.3) fL Plt Count 138 L (182-369) K/mm3 MPV 11.1 (9.4-12.3) fl Neut % (Auto) 32.3 L (34.0-71.1) % Lymph % (Auto) 50.7 (19.3-51.7) % [place] % (Auto) 14.8 H (4.7-12.5) % Eos % (Auto) 1.1 (0.7-5.8) Baso % (Auto) 1.1 (0.1-1.2) % Neut # (Auto) 1.13 L (1.56-6.13) K/mm3 Lymph # (Auto) 1.78 (1.18-3.74) K/mm3 [place] # (Auto) 0.52 H (0.24-0.36) K/mm3 Eos # (Auto) 0.04 (0.04-0.36) K/mm3 Baso # (Auto) 0.04 (0.01-0.08) K/mm3 Sodium 145 (136-145) mEq/L Potassium 4.0 (3.5-5.1) mEq/L Chloride 109 H (98-107) mEq/L Carbon Dioxide 31 (21-32) mEq/L Anion Gap 9.0 (5-15) BUN 3 L (7-18) mg/dL Creatinine 0.9 (0.55-1.02) mg/dL Est Cr Clr Drug Dosing 57.45 mL/min Estimated GFR (MDRD) > 60 (>60) mL/min BUN/Creatinine Ratio 3.3 L (14-18) Glucose 107 H (74-106) mg/dL Calcium 8.0 L (8.5-10.1) mg/dL Phosphorus 2.5 L (2.6-4.7) mg/dL Magnesium 2.2 (1.8-2.4) mg/dl Total Bilirubin 0.3 (0.2-1.0) mg/dL AST 18 (15-37) U/L ALT 15 (14-59) U/L Alkaline Phosphatase 25 L (46-116) U/L Total Protein 6.0 L (6.4-8.2) g/dl Albumin 2.3 L (3.4-5.0) g/dl Globulin 3.7 gm/dL Albumin/Globulin Ratio 0.6 L (1-2) Result Diagrams: 08/08/20 08:38 08/08/20 08:38 Sepsis Event Note - Evaluation Sepsis Screening Result: No Definite Risk - Focused Exam Vital Signs: Vital Signs Temp Pulse Resp BP Pulse Ox 08/08/20 16:10 98.8 F 64 16 90/53 L 100 08/08/20 11:18 98.6 F 84 16 96/52 L 100 08/08/20 08:30 98.2 F 73 16 111/69 97 Consult PN Assessment/Plan Procedures: Procedures ASSAY OF FREE THYROXINE (09/15/19) ASSAY OF MAGNESIUM (09/15/19) ASSAY OF PHOSPHORUS (09/15/19) ASSAY THYROID STIM HORMONE (09/15/19) BL SMEAR W/DIFF WBC COUNT (09/15/19) C-REACTIVE PROTEIN (08/03/20) CHEST X-RAY 2VW FRONTAL&LATL (09/16/14) COLONOSCOPY AND BIOPSY (07/13/19) COMPLETE CBC AUTOMATED (09/15/19) COMPLETE CBC W/AUTO DIFF WBC (08/03/20) COMPREHEN METABOLIC PANEL (08/03/20) CT ABD & PELV W/CONTRAST (09/15/19) CT HEAD/BRAIN W/O DYE (02/13/14) CULTURE SCREEN ONLY (09/16/14) EGD BIOPSY SINGLE/MULTIPLE (07/13/19) ELECTROCARDIOGRAM TRACING (07/13/19) EMERGENCY DEPT VISIT (08/03/20) EMERGENCY DEPT VISIT (09/15/19) EMERGENCY DEPT VISIT (07/04/19) HYDRATE IV INFUSION ADD-ON (09/15/19) IMMUNOHISTO ANTB 1ST STAIN (07/13/19) METABOLIC PANEL TOTAL CA (09/15/19) ROUTINE VENIPUNCTURE (08/03/20) STREP A AG IA (09/16/14) THER/PROPH/DIAG INJ IV PUSH (07/04/19) THER/PROPH/DIAG IV INF INIT (09/15/19) TISSUE EXAM BY PATHOLOGIST (07/13/19) TX/PRO/DX INJ NEW DRUG ADDON (09/15/19) TX/PRO/DX INJ SAME DRUG MONOGRAM TECHNICIAN (09/15/19) TX/PROPH/DG ADDL SEQ IV INF (09/16/14) URINALYSIS AUTO W/SCOPE (09/16/14) URINE TEST (09/15/19) X-RAY EXAM ABDOMEN 2 VIEWS (07/04/19) X-RAY EXAM CHEST 2 VIEWS (08/03/20) Problem List Initiated/Reviewed/Updated: No Plan: 30 yo F with Down's syndrome and severe GERD leading to vomiting and failure to thrive. She has not had any meaningful mean for 10 days. I think it is reasonable to proceed with a laparoscopic PEG placement. Due to severe GERD, gastrostomy alone will not work. I discussed with the mother risks, benefits and alternatives. Risks discussed includes injury to intraabdominal structures, leakage around the tube, dislodgement requiring emergent surgery, bleeding, infection, need for a dditional procedures. Mother understood and agreed to proceed with the procedure. Informed consent was obtained.
[2020-08-08] MEDS ORDERED: Sodium Chloride 0.9% 500 ML IV ONE ×2 (18:25→23:44)
[2020-08-08] MEDS ORDERED: Albumin 25% 12.5 GM/50 ML BAG IV ONE (19:15)
[2020-08-09] MEDS: Levothyroxine 50 MCG Tab PO SCH (05:36)
[2020-08-09] MEDS: Dextrose 5% in Water 1,000 ML IV SCH ×2 (08:49→19:40)
[2020-08-09] MEDS: Enoxaparin 30 MG/0.3 ML Syringe SUBCUT SCH (09:06)
[2020-08-09] MEDS: Pantoprazole 40 MG Vial IVPUSH SCH ×2 (09:06→21:26)
--- NOTE | 2020-08-09 09:31 | PCM.PN ---
- General Info Date of Service: 08/09/20 Subjective Update: Patient will have G tube placed on 08/10/20. It has been ordered and will arrive from [place]. She will be NPO after midnight. Functional Status: Reports: Urinating - Review of Systems General: Reports: No Symptoms HEENT: Reports: No Symptoms Pulmonary: Reports: No Symptoms Cardiovascular: Reports: No Symptoms Gastrointestinal: Reports: No Symptoms Genitourinary: Reports: No Symptoms Musculoskeletal: Reports: No Symptoms Skin: Reports: No Symptoms Neurological: Reports: No Symptoms Psychiatric: Reports: No Symptoms - Patient Data Vitals - Most Recent: Last Vital Signs Temp 36.9 C 08/09/20 08:47 Pulse 70 08/09/20 08:47 Resp 16 08/09/20 08:47 BP 95/71 08/09/20 08:47 Pulse Ox 100 08/09/20 09:00 Orthostatic Blood Pressure [ 80/60 Standing] Orthostatic Blood Pressure [ 86/69 Supine] Weight - Most Recent: 41.277 kg I&O - Last 24 Hours: Intake & Output 08/08/20 08/09/20 08/09/20 22:59 06:59 14:59 Intake Total 1350 1600 Output Total 400 1350 Balance 950 250 Lab Results Last 24 Hours: Laboratory Results - last 24 hr 08/09/20 08/09/20 08/09/20 Range/Units 05:24 05:24 05:24 WBC 3.28 L (3.98-10.04) K/mm3 RBC 3.72 L (3.98-5.22) M/mm3 Hgb 11.6 (11.2-15.7) gm/dl Hct 35.6 (34.1-44.9) % MCV 95.7 H (79.4-94.8) fl MCH 31.2 (25.6-32.2) pg MCHC 32.6 (32.2-35.5) g/dl RDW Std Deviation 47.9 H (36.4-46.3) fL Plt Count 141 L (182-369) K/mm3 MPV 10.8 (9.4-12.3) fl Neut % (Auto) 27.7 L (34.0-71.1) % Lymph % (Auto) 47.0 (19.3-51.7) % [place] % (Auto) 16.8 H (4.7-12.5) % Eos % (Auto) 1.5 (0.7-5.8) Baso % (Auto) 1.8 H (0.1-1.2) % Neut # (Auto) 0.91 L (1.56-6.13) K/mm3 Lymph # (Auto) 1.54 (1.18-3.74) K/mm3 [place] # (Auto) 0.55 H (0.24-0.36) K/mm3 Eos # (Auto) 0.05 (0.04-0.36) K/mm3 Baso # (Auto) 0.06 (0.01-0.08) K/mm3 Manual Slide Review Abnormal smear D-Dimer, Quantitative 1.05 H (0.19-0.50) mg/L Sodium 148 H (136-145) mEq/L Potassium 3.4 L (3.5-5.1) mEq/L Chloride 113 H (98-107) mEq/L Carbon Dioxide 28 (21-32) mEq/L Anion Gap 10.4 (5-15) BUN 3 L (7-18) mg/dL Creatinine 0.9 (0.55-1.02) mg/dL Est Cr Clr Drug Dosing 58.47 mL/min Estimated GFR (MDRD) > 60 (>60) mL/min BUN/Creatinine Ratio 3.3 L (14-18) Glucose 107 H (74-106) mg/dL Calcium 8.3 L (8.5-10.1) mg/dL Phosphorus 3.2 (2.6-4.7) mg/dL Magnesium 1.8 (1.8-2.4) mg/dl Total Bilirubin 0.4 (0.2-1.0) mg/dL AST 16 (15-37) U/L ALT 15 (14-59) U/L Alkaline Phosphatase 27 L (46-116) U/L C-Reactive Protein 1.5 H* (<1.0) mg/dL Total Protein 5.8 L (6.4-8.2) g/dl Albumin 2.5 L (3.4-5.0) g/dl Globulin 3.3 gm/dL Albumin/Globulin Ratio 0.8 L (1-2) Med Orders - Current: Current Medications Acetaminophen (Tylenol) 650 mg PO Q4H PRN PRN Reason: Pain/Fever Last Admin: 08/08/20 11:12 Dose: 650 mg Documented by: Enoxaparin Sodium (Enoxaparin 30 Mg/0.3 Ml Syringe) 30 mg SUBCUT DAILY [facility] Last Admin: 08/09/20 09:06 Dose: 30 mg Documented by: Magnesium Sulfate 4 gm/ Premix 50 mls @ 12.5 mls/hr IV ONETIME ONE Stop: 08/07/20 16:59 Last Admin: 08/07/20 14:14 Dose: 12.5 mls/hr Documented by: Dextrose/Water (Dextrose 5% In Water) 1,000 mls @ 100 mls/hr IV ASDIRECTED [facility] Last Admin: 08/09/20 08:49 Dose: 100 mls/hr Documented by: Levothyroxine 50 Mcg (Ptom) 50 mcg PO ACBREAKFAST [facility] Last Admin: 08/08/20 05:40 Dose: Not Given Documented by: Ondansetron HCl (Zofran) 4 mg IV Q4H PRN PRN Reason: Nausea/Vomiting Last Admin: 08/07/20 18:32 Dose: 4 mg Documented by: Pantoprazole Sodium (Pantoprazole 40 Mg Vial) 40 mg IVPUSH Q12H [facility] Last Admin: 08/09/20 09:06 Dose: 40 mg Documented by: Discontinued Medications Acetaminophen (Tylenol) 650 mg PO Q4H PRN PRN Reason: Pain (Mild 1-3)/fever Sodium Chloride (Normal Saline) 1,000 mls @ 999 mls/hr IV ONETIME ONE Stop: 08/06/20 07:57 Last Admin: 08/06/20 07:21 Dose: 999 mls/hr Documented by: Dextrose/Sodium Chloride (Dextrose 5%-1/2 Ns) 1,000 mls @ 75 mls/hr IV ASDIRECTED [facility] Last Admin: 08/06/20 11:58 Dose: 75 mls/hr Documented by: Potassium Chloride/Dextrose/Sod Cl (D5 1/2 Ns W/ 20 Meq/L Kcl) 1,000 mls @ 75 mls/hr IV ASDIRECTED [facility] Last Admin: 08/06/20 23:51 Dose: 75 mls/hr Documented by: Potassium Chloride 10 meq/ (Premix) 100 mls @ 100 mls/hr IV Q1H LISA Stop: 08/07/20 12:59 Last Admin: 08/07/20 12:54 Dose: 100 mls/hr Documented by: - Exam Quality Assessment: DVT Prophylaxis General: Alert, Oriented, Cooperative HEENT: Pupils Equal, Pupils Reactive Neck: Trachea Midline, No JVD Lungs: Normal Respiratory Effort Cardiovascular: Regular Rate, Regular Rhythm GI/Abdominal Exam: Normal Bowel Sounds, Soft, Non-Tender (Female) Exam: Deferred Back Exam: Normal Inspection Extremities: Normal Inspection Skin: Warm Neurological: No New Focal Deficit Psy/Mental Status: Alert - Patient Data Lab Results Last 24 hrs: Laboratory Results - last 24 hr 08/09/20 08/09/20 08/09/20 Range/Units 05:24 05:24 05:24 WBC 3.28 L (3.98-10.04) K/mm3 RBC 3.72 L (3.98-5.22) M/mm3 Hgb 11.6 (11.2-15.7) gm/dl Hct 35.6 (34.1-44.9) % MCV 95.7 H (79.4-94.8) fl MCH 31.2 (25.6-32.2) pg MCHC 32.6 (32.2-35.5) g/dl RDW Std Deviation 47.9 H (36.4-46.3) fL Plt Count 141 L (182-369) K/mm3 MPV 10.8 (9.4-12.3) fl Neut % (Auto) 27.7 L (34.0-71.1) % Lymph % (Auto) 47.0 (19.3-51.7) % [place] % (Auto) 16.8 H (4.7-12.5) % Eos % (Auto) 1.5 (0.7-5.8) Baso % (Auto) 1.8 H (0.1-1.2) % Neut # (Auto) 0.91 L (1.56-6.13) K/mm3 Lymph # (Auto) 1.54 (1.18-3.74) K/mm3 [place] # (Auto) 0.55 H (0.24-0.36) K/mm3 Eos # (Auto) 0.05 (0.04-0.36) K/mm3 Baso # (Auto) 0.06 (0.01-0.08) K/mm3 Manual Slide Review Abnormal smear D-Dimer, Quantitative 1.05 H (0.19-0.50) mg/L Sodium 148 H (136-145) mEq/L Potassium 3.4 L (3.5-5.1) mEq/L Chloride 113 H (98-107) mEq/L Carbon Dioxide 28 (21-32) mEq/L Anion Gap 10.4 (5-15) BUN 3 L (7-18) mg/dL Creatinine 0.9 (0.55-1.02) mg/dL Est Cr Clr Drug Dosing 58.47 mL/min Estimated GFR (MDRD) > 60 (>60) mL/min BUN/Creatinine Ratio 3.3 L (14-18) Glucose 107 H (74-106) mg/dL Calcium 8.3 L (8.5-10.1) mg/dL Phosphorus 3.2 (2.6-4.7) mg/dL Magnesium 1.8 (1.8-2.4) mg/dl Total Bilirubin 0.4 (0.2-1.0) mg/dL AST 16 (15-37) U/L ALT 15 (14-59) U/L Alkaline Phosphatase 27 L (46-116) U/L C-Reactive Protein 1.5 H* (<1.0) mg/dL Total Protein 5.8 L (6.4-8.2) g/dl Albumin 2.5 L (3.4-5.0) g/dl Globulin 3.3 gm/dL Albumin/Globulin Ratio 0.8 L (1-2) Result Diagrams: 08/09/20 05:24 08/09/20 05:24 Sepsis Event Note - Evaluation Sepsis Screening Result: No Definite Risk - Focused Exam Vital Signs: Vital Signs Temp Pulse Resp BP Pulse Ox Pulse Ox 08/09/20 09:00 100 08/09/20 08:47 36.9 C 70 16 95/71 98 08/09/20 02:50 36.5 C 66 14 94/62 99 08/09/20 00:46 91/53 L 08/08/20 23:38 36.4 C 64 16 83/49 L 97 - Problem List & Annotations (1) Anorexia SNOMED Code(s): 37209239 Code(s): R63.0 - ANOREXIA Status: Acute Current Visit: Yes (2) Esophagitis SNOMED Code(s): 96431761 Code(s): K20.90 - ESOPHAGITIS, UNSPECIFIED WITHOUT BLEEDING Status: Acute Current Visit: Yes (3) Failure to thrive SNOMED Code(s): 06743786 Code(s): EMU8876 - Status: Acute Current Visit: Yes (4) GERD (gastroesophageal reflux disease) SNOMED Code(s): 123639954 Code(s): K21.9 - GASTRO-ESOPHAGEAL REFLUX DISEASE WITHOUT ESOPHAGITIS Status: Acute Current Visit: Yes (5) Hypotension SNOMED Code(s): 93585819 Code(s): I95.9 - HYPOTENSION, UNSPECIFIED Status: Acute Current Visit: Yes (6) COVID-19 SNOMED Code(s): 016923704 Code(s): U07.1 - COVID-19 Status: Acute Current Visit: No (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 Last year patient had a CT of the abdomen, EGD, colonoscopy, and was found to have erosive gastritis. Patient was also found to be self inducing vomiting by sticking her finger down her throat. When asked why she was doing that she states that she was anxious and it made her feel better. She was seen by psychiatry at that time. 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 Failure to thrive Down syndrome Jailene's hypothyroidism Hypotension * Received bamlamivimab, Solu-Medrol, Pepcid, epinephrine, diphenhydramine and discharged home 3 days ago for COVID-19 infection * Clinical Support Nurse out of [facility] in [place], [place] * 15 pound weight loss from last hospitalization in August 2019 * No longer on duloxetine * Currently on omeprazole 10 mg liquid daily but has not been taking it for the last for 5 days * Patient may need PEG tube placement secondary to chronic anorexia and weight loss Plan * Refer for observation * Protonix 40 mg IV every 12 hours * D5 half-normal saline at 75 mL an hour * Nutrition consult * PT OT consult * Respiratory isolation * Considered surgical consult for PEG placement if patient does not increase oral intake * Patient will likely need long-term nutritional support since she developed a phobia of swallowing. She will likely pull the NG tube out and it does not encourage her to take orally. * CODE STATUS: Full code * VTE prophylaxis with Lovenox 08/07/2020 Patient did not tolerate any oral intake yesterday. After discussion with her mother she would like to progress with feeding tube placement. Dietary recommends a J-tube secondary to her severe reflux. Dr. Harding and surgery will be consulted. We will request old records in regards to her gastrointestinal studies. These include EGD, colonoscopy, CT scan, and notes from her firmware engineer at [facility]. Patient did have some hypernatremia today so her fluids will be switched to D5 W with 20 mEq of KCl. She will also get 40 mEq of KCl IV throughout today. She will continue on respiratory isol ation for her COVID-19 infection. Patient continues to be asymptomatic in regards to respiratory symptoms of COVID-19. Continue daily weights. Continue Protonix 40 mg IV every 12 hours. Patient refused her levothyroxine this morning. 08/08/2020 Patient had another day of very poor oral intake. She also had hypotensive episode last night even though she has been getting maintenance fluids. Patient has a history of reflux with erosive esophagitis. She also has history of bulimia last year. There is great concern that she will need a feeding tube placed distally to the stomach secondary to her gagging and retching every time she has anything on her stomach. Unfortunately, Dr. Harding was tied up yesterday with emergency surgeries all day and was unable to see her yesterday. He plans on seeing her today. Electrolytes today are back to normal, but we will continue to have to follow those with her poor oral intake. Discharge will likely be next week and may need to be to a shelter facility. Mother is unsure if she will be able to take care of her at home. 08/09/20 G tube rescheduled, it will be placed on 08/10/20; the equipment had to be o rdered and will arrive from [place]. Plan: Discussed with Dr. Harding, planned G Tube. Continue IV fluids and encourage oral intake. Continue respiratory isolation for COVID-19.
--- NOTE | 2020-08-09 14:07 | PCM.PREANE ---
Preanesthetic Assessment - Anesthesia/Transfusion/Family Hx Anesthesia History: Prior Anesthesia Without Reaction Transfusion History: No Prior Transfusion(s) - Review of Systems General: No Symptoms Pulmonary: No Symptoms, Other (currently recovering from COVID-19 infection) Cardiovascular: No Symptoms, Other (ASD VSD pre-existing heart defects) Gastrointestinal: Decreased Appetite, Nausea, Vomiting Neurological: Pre-Existing Deficit, Change in Speech Other: Reports: None - Physical Assessment NPO Status Date: 08/09/20 NPO Status Time: 22:00 Vital Signs: Last Vital Signs Temp 98.4 F 08/09/20 08:47 Pulse 70 08/09/20 08:47 Resp 16 08/09/20 08:47 BP 95/71 08/09/20 08:47 Pulse Ox 100 08/09/20 09:00 Orthostatic Blood Pressure [ 80/60 Standing] Orthostatic Blood Pressure [ 86/69 Supine] Height: 1.45 m Weight: 41.277 kg ASA Class: 3 Mental Status: Alert & Oriented x3 Airway Class: Mallampati = 4 (extremely difficult airway) Dentition: Reports: Missing Tooth/Teeth (unable to assess due to patient's cooperation) Thyro-Mental Finger Breadths: 3 Mouth Opening Finger Breadths: 1 (extremely small mouth opening, large tongue, ) ROM/Head Extension: Full Lungs: Clear to Auscultation, Normal Respiratory Effort Cardiovascular: Regular Rate, Regular Rhythm, Murmurs - Lab Values: Laboratory Last Values WBC 3.28 K/mm3 (3.98-10.04) L 08/09/20 05:24 RBC 3.72 M/mm3 (3.98-5.22) L 08/09/20 05:24 Hgb 11.6 gm/dl (11.2-15.7) 08/09/20 05:24 Hct 35.6 % (34.1-44.9) 08/09/20 05:24 MCV 95.7 fl (79.4-94.8) H 08/09/20 05:24 MCH 31.2 pg (25.6-32.2) 08/09/20 05:24 MCHC 32.6 g/dl (32.2-35.5) 08/09/20 05:24 RDW Std Deviation 47.9 fL (36.4-46.3) H 08/09/20 05:24 Plt Count 141 K/mm3 (182-369) L 08/09/20 05:24 MPV 10.8 fl (9.4-12.3) 08/09/20 05:24 Neut % (Auto) 27.7 % (34.0-71.1) L 08/09/20 05:24 Lymph % (Auto) 47.0 % (19.3-51.7) 08/09/20 05:24 Love % (Auto) 16.8 % (4.7-12.5) H 08/09/20 05:24 Eos % (Auto) 1.5 (0.7-5.8) 08/09/20 05:24 Baso % (Auto) 1.8 % (0.1-1.2) H 08/09/20 05:24 Neut # (Auto) 0.91 K/mm3 (1.56-6.13) L 08/09/20 05:24 Lymph # (Auto) 1.54 K/mm3 (1.18-3.74) 08/09/20 05:24 Love # (Auto) 0.55 K/mm3 (0.24-0.36) H 08/09/20 05:24 Eos # (Auto) 0.05 K/mm3 (0.04-0.36) 08/09/20 05:24 Baso # (Auto) 0.06 K/mm3 (0.01-0.08) 08/09/20 05:24 Neutrophils % (Manual) 18 % (40-60) L 08/06/20 07:18 Band Neutrophils % 8 % (0-10) 08/06/20 07:18 Lymphocytes % (Manual) 52 % (20-40) H 08/06/20 07:18 Atypical Lymphs % 9 % 08/06/20 07:18 Monocytes % (Manual) 13 % (2-10) H 08/06/20 07:18 Eosinophils % (Manual) 0 % (0.7-5.8) L 08/06/20 07:18 Basophils % (Manual) 0 (0.1-1.2) L 08/06/20 07:18 Manual Slide Review Abnormal smear 08/09/20 05:24 Platelet Estimate Decreased 08/06/20 07:18 Plt Morphology Comment Normal 08/06/20 07:18 RBC Morph Comment Normal 08/06/20 07:18 D-Dimer, Quantitative 1.05 mg/L (0.19-0.50) H 08/09/20 05:24 Sodium 148 mEq/L (136-145) H 08/09/20 05:24 Potassium 3.4 mEq/L (3.5-5.1) L 08/09/20 05:24 Chloride 113 mEq/L (98-107) H 08/09/20 05:24 Carbon Dioxide 28 mEq/L (21-32) 08/09/20 05:24 Anion Gap 10.4 (5-15) 08/09/20 05:24 BUN 3 mg/dL (7-18) L 08/09/20 05:24 Creatinine 0.9 mg/dL (0.55-1.02) 08/09/20 05:24 Est Cr Clr Drug Dosing 58.47 mL/min 08/09/20 05:24 Estimated GFR (MDRD) > 60 mL/min (>60) 08/09/20 05:24 BUN/Creatinine Ratio 3.3 (14-18) L 08/09/20 05:24 Glucose 107 mg/dL (74-106) H 08/09/20 05:24 Calcium 8.3 mg/dL (8.5-10.1) L 08/09/20 05:24 Phosphorus 3.2 mg/dL (2.6-4.7) 08/09/20 05:24 Magnesium 1.8 mg/dl (1.8-2.4) 08/09/20 05:24 Total Bilirubin 0.4 mg/dL (0.2-1.0) 08/09/20 05:24 AST 16 U/L (15-37) 08/09/20 05:24 ALT 15 U/L (14-59) 08/09/20 05:24 Alkaline Phosphatase 27 U/L (46-116) L 08/09/20 05:24 C-Reactive Protein 1.5 mg/dL (<1.0) H* 08/09/20 05:24 Total Protein 5.8 g/dl (6.4-8.2) L 08/09/20 05:24 Albumin 2.5 g/dl (3.4-5.0) L 08/09/20 05:24 Globulin 3.3 gm/dL 08/09/20 05:24 Albumin/Globulin Ratio 0.8 (1-2) L 08/09/20 05:24 Lipase 93 U/L (73-393) 08/06/20 07:18 - Allergies Allergies/Adverse Reactions: Allergies Allergy/AdvReac Type Severity Reaction Status Date / Time No Known Allergies Allergy Verified 08/03/20 10:27 - Acknowledgements Anesthesia Type Planned: General Anesthesia Pt an Appropriate Candidate for the Planned Anesthesia: Yes Alternatives and Risks of Anesthesia Discussed w Pt/Guardian: Yes Pt/Guardian Understands and Agrees with Anesthesia Plan: Yes PreAnesthesia Questionnaire HEENT History: Reports: Hard of Hearing Cardiovascular History: Reports: Afib, Congenital Septal Defect, Heart Murmur Other Cardiovascular History: ASD, VSD Respiratory History: Reports: None Gastrointestinal History: Reports: Gastritis, GERD Other Gastrointestinal History: extreme acid reflux Genitourinary History: Reports: None [employer] History: Reports: None Musculoskeletal History: Reports: None Neurological History: Reports: Other (See Below) (Down Syndrome) Psychiatric History: Reports: Anxiety, Depression, Eating Disorders Other Psychiatric History: Down's Syndrome, tc disorder Endocrine/Metabolic History: Reports: Other (See Below) Other Endocrine/Metabolic History: Jailene's, elevated TSH Hematologic History: Reports: None Immunologic History: Reports: None Oncologic (Cancer) History: Reports: None Dermatologic History: Reports: None - Infectious Disease History Infectious Disease History: Reports: Novel Coronavirus - Past Surgical History Head Surgeries/Procedures: Reports: None HEENT Surgical History: Reports: Cataract Surgery, Myringotomy w Tube(s) Cardiovascular Surgical History: Reports: None Respiratory Surgical History: Reports: None GI Surgical History: Reports: None, Colonoscopy, EGD Other GI Surgeries/Procedures: colonoscopy 07/2019. EGD 2019 Female Surgical History: Reports: None Endocrine Surgical History: Reports: None Neurological Surgical History: Reports: None Musculoskeletal Surgical History: Reports: None Oncologic Surgical History: Reports: None Dermatological Surgical History: Reports: None - SUBSTANCE USE Tobacco Use Status *Q: Never Tobacco User Recreational Drug Use History: No - HOME MEDS Home Medications: Home Meds Levothyroxine [Synthroid] 50 mcg PO ACBREAKFAST 08/03/20 [History] Omeprazole 10 ml PO BIDAC 08/03/20 [History] - CURRENT (IN HOUSE) MEDS Current Meds: Current Medications Acetaminophen (Tylenol) 650 mg PO Q4H PRN PRN Reason: Pain/Fever Last Admin: 08/08/20 11:12 Dose: 650 mg Documented by: Enoxaparin Sodium (Enoxaparin 30 Mg/0.3 Ml Syringe) 30 mg SUBCUT DAILY [facility] Last Admin: 08/09/20 09:06 Dose: 30 mg Documented by: Dextrose/Water (Dextrose 5% In Water) 1,000 mls @ 100 mls/hr IV ASDIRECTED [facility] Last Admin: 08/09/20 08:49 Dose: 100 mls/hr Documented by: Levothyroxine 50 Mcg (Ptom) 50 mcg PO ACBREAKFAST [facility] Last Admin: 08/08/20 05:40 Dose: Not Given Documented by: Ondansetron HCl (Zofran) 4 mg IV Q4H PRN PRN Reason: Nausea/Vomiting Last Admin: 08/07/20 18:32 Dose: 4 mg Documented by: Pantoprazole Sodium (Pantoprazole 40 Mg Vial) 40 mg IVPUSH Q12H [facility] Last Admin: 08/09/20 09:06 Dose: 40 mg Documented by: Discontinued Medications Acetaminophen (Tylenol) 650 mg PO Q4H PRN PRN Reason: Pain (Mild 1-3)/fever Sodium Chloride (Normal Saline) 1,000 mls @ 999 mls/hr IV ONETIME ONE Stop: 08/06/20 07:57 Last Admin: 08/06/20 07:21 Dose: 999 mls/hr Documented by: Dextrose/Sodium Chloride (Dextrose 5%-1/2 Ns) 1,000 mls @ 75 mls/hr IV ASDIRECTED [facility] Last Admin: 08/06/20 11:58 Dose: 75 mls/hr Documented by: Potassium Chloride/Dextrose/Sod Cl (D5 1/2 Ns W/ 20 Meq/L Kcl) 1,000 mls @ 75 mls/hr IV ASDIRECTED [facility] Last Admin: 08/06/20 23:51 Dose: 75 mls/hr Documented by: Potassium Chloride 10 meq/ (Premix) 100 mls @ 100 mls/hr IV Q1H [facility] Stop: 08/07/20 12:59 Last Admin: 08/07/20 12:54 Dose: 100 mls/hr Documented by: Magnesium Sulfate 4 gm/ Premix 50 mls @ 12.5 mls/hr IV ONETIME ONE Stop: 08/07/20 16:59 Last Admin: 08/07/20 14:14 Dose: 12.5 mls/hr Documented by:
--- NOTE | 2020-08-09 18:52 | PCM.PN ---
- General Info Date of Service: 08/09/20 Admission Dx/Problem (Free Text): Admission Diagnosis/Problem Admission Diagnosis/Problem Failure to thrive Subjective Update: Patient has eaten some today but vomited some of the food. She is getting weak per mother Functional Status: Reports: Ambulating, Urinating - Review of Systems General: Reports: No Symptoms HEENT: Reports: No Symptoms Pulmonary: Reports: No Symptoms Cardiovascular: Reports: No Symptoms Gastrointestinal: Reports: No Symptoms Genitourinary: Reports: No Symptoms Musculoskeletal: Reports: No Symptoms Skin: Reports: No Symptoms Neurological: Reports: No Symptoms - Patient Data Vitals - Most Recent: Last Vital Signs Temp 98.1 F 08/09/20 14:48 Pulse 80 08/09/20 14:48 Resp 16 08/09/20 14:48 BP 98/64 08/09/20 14:48 Pulse Ox 97 08/09/20 14:48 Orthostatic Blood Pressure [ 80/60 Standing] Orthostatic Blood Pressure [ 86/69 Supine] Weight - Most Recent: 41.277 kg I&O - Last 24 Hours: Intake & Output 08/09/20 08/09/20 08/09/20 06:59 14:59 22:59 Intake Total 1600 0 1750 Output Total 1350 Balance 250 0 1750 Lab Results Last 24 Hours: Laboratory Results - last 24 hr 08/09/20 08/09/20 08/09/20 Range/Units 05:24 05:24 05:24 WBC 3.28 L (3.98-10.04) K/mm3 RBC 3.72 L (3.98-5.22) M/mm3 Hgb 11.6 (11.2-15.7) gm/dl Hct 35.6 (34.1-44.9) % MCV 95.7 H (79.4-94.8) fl MCH 31.2 (25.6-32.2) pg MCHC 32.6 (32.2-35.5) g/dl RDW Std Deviation 47.9 H (36.4-46.3) fL Plt Count 141 L (182-369) K/mm3 MPV 10.8 (9.4-12.3) fl Neut % (Auto) 27.7 L (34.0-71.1) % Lymph % (Auto) 47.0 (19.3-51.7) % [place] % (Auto) 16.8 H (4.7-12.5) % Eos % (Auto) 1.5 (0.7-5.8) Baso % (Auto) 1.8 H (0.1-1.2) % Neut # (Auto) 0.91 L (1.56-6.13) K/mm3 Lymph # (Auto) 1.54 (1.18-3.74) K/mm3 [place] # (Auto) 0.55 H (0.24-0.36) K/mm3 Eos # (Auto) 0.05 (0.04-0.36) K/mm3 Baso # (Auto) 0.06 (0.01-0.08) K/mm3 Manual Slide Review Abnormal smear D-Dimer, Quantitative 1.05 H (0.19-0.50) mg/L Sodium 148 H (136-145) mEq/L Potassium 3.4 L (3.5-5.1) mEq/L Chloride 113 H (98-107) mEq/L Carbon Dioxide 28 (21-32) mEq/L Anion Gap 10.4 (5-15) BUN 3 L (7-18) mg/dL Creatinine 0.9 (0.55-1.02) mg/dL Est Cr Clr Drug Dosing 58.47 mL/min Estimated GFR (MDRD) > 60 (>60) mL/min BUN/Creatinine Ratio 3.3 L (14-18) Glucose 107 H (74-106) mg/dL Calcium 8.3 L (8.5-10.1) mg/dL Phosphorus 3.2 (2.6-4.7) mg/dL Magnesium 1.8 (1.8-2.4) mg/dl Total Bilirubin 0.4 (0.2-1.0) mg/dL AST 16 (15-37) U/L ALT 15 (14-59) U/L Alkaline Phosphatase 27 L (46-116) U/L C-Reactive Protein 1.5 H* (<1.0) mg/dL Total Protein 5.8 L (6.4-8.2) g/dl Albumin 2.5 L (3.4-5.0) g/dl Globulin 3.3 gm/dL Albumin/Globulin Ratio 0.8 L (1-2) Med Orders - Current: Current Medications Acetaminophen (Tylenol) 650 mg PO Q4H PRN PRN Reason: Pain/Fever Last Admin: 08/08/20 11:12 Dose: 650 mg Documented by: Enoxaparin Sodium (Enoxaparin 30 Mg/0.3 Ml Syringe) 30 mg SUBCUT DAILY [facility] Last Admin: 08/09/20 09:06 Dose: 30 mg Documented by: Dextrose/Water (Dextrose 5% In Water) 1,000 mls @ 100 mls/hr IV ASDIRECTED [facility] Last Admin: 08/09/20 08:49 Dose: 100 mls/hr Documented by: Levothyroxine 50 Mcg (Ptom) 50 mcg PO ACBREAKFAST [facility] Last Admin: 08/08/20 05:40 Dose: Not Given Documented by: Ondansetron HCl (Ondansetron 4 Mg/2 Ml Sdv) 4 mg IV Q4H PRN PRN Reason: Nausea/Vomiting Last Admin: 08/07/20 18:32 Dose: 4 mg Documented by: Pantoprazole Sodium (Pantoprazole 40 Mg Vial) 40 mg IVPUSH Q12H [facility] Last Admin: 08/09/20 09:06 Dose: 40 mg Documented by: Discontinued Medications Acetaminophen (Tylenol) 650 mg PO Q4H PRN PRN Reason: Pain (Mild 1-3)/fever Sodium Chloride (Normal Saline) 1,000 mls @ 999 mls/hr IV ONETIME ONE Stop: 08/06/20 07:57 Last Admin: 08/06/20 07:21 Dose: 999 mls/hr Documented by: Dextrose/Sodium Chloride (Dextrose 5%-1/2 Ns) 1,000 mls @ 75 mls/hr IV ASDIRECTED [facility] Last Admin: 08/06/20 11:58 Dose: 75 mls/hr Documented by: Potassium Chloride/Dextrose/Sod Cl (D5 1/2 Ns W/ 20 Meq/L Kcl) 1,000 mls @ 75 mls/hr IV ASDIRECTED [facility] Last Admin: 08/06/20 23:51 Dose: 75 mls/hr Documented by: Potassium Chloride 10 meq/ (Premix) 100 mls @ 100 mls/hr IV Q1H [facility] Stop: 08/07/20 12:59 Last Admin: 08/07/20 12:54 Dose: 100 mls/hr Documented by: Magnesium Sulfate 4 gm/ Premix 50 mls @ 12.5 mls/hr IV ONETIME ONE Stop: 08/07/20 16:59 Last Admin: 08/07/20 14:14 Dose: 12.5 mls/hr Documented by: - Exam General: Alert, Oriented Lungs: Clear to Auscultation, Normal Respiratory Effort Cardiovascular: Regular Rate, Regular Rhythm GI/Abdominal Exam: Normal Bowel Sounds, Soft, Non-Tender, No Organomegaly - Patient Data Lab Results Last 24 hrs: Laboratory Results - last 24 hr 08/09/20 08/09/20 08/09/20 Range/Units 05:24 05:24 05:24 WBC 3.28 L (3.98-10.04) K/mm3 RBC 3.72 L (3.98-5.22) M/mm3 Hgb 11.6 (11.2-15.7) gm/dl Hct 35.6 (34.1-44.9) % MCV 95.7 H (79.4-94.8) fl MCH 31.2 (25.6-32.2) pg MCHC 32.6 (32.2-35.5) g/dl RDW Std Deviation 47.9 H (36.4-46.3) fL Plt Count 141 L (182-369) K/mm3 MPV 10.8 (9.4-12.3) fl Neut % (Auto) 27.7 L (34.0-71.1) % Lymph % (Auto) 47.0 (19.3-51.7) % [place] % (Auto) 16.8 H (4.7-12.5) % Eos % (Auto) 1.5 (0.7-5.8) Baso % (Auto) 1.8 H (0.1-1.2) % Neut # (Auto) 0.91 L (1.56-6.13) K/mm3 Lymph # (Auto) 1.54 (1.18-3.74) K/mm3 [place] # (Auto) 0.55 H (0.24-0.36) K/mm3 Eos # (Auto) 0.05 (0.04-0.36) K/mm3 Baso # (Auto) 0.06 (0.01-0.08) K/mm3 Manual Slide Review Abnormal smear D-Dimer, Quantitative 1.05 H (0.19-0.50) mg/L Sodium 148 H (136-145) mEq/L Potassium 3.4 L (3.5-5.1) mEq/L Chloride 113 H (98-107) mEq/L Carbon Dioxide 28 (21-32) mEq/L Anion Gap 10.4 (5-15) BUN 3 L (7-18) mg/dL Creatinine 0.9 (0.55-1.02) mg/dL Est Cr Clr Drug Dosing 58.47 mL/min Estimated GFR (MDRD) > 60 (>60) mL/min BUN/Creatinine Ratio 3.3 L (14-18) Glucose 107 H (74-106) mg/dL Calcium 8.3 L (8.5-10.1) mg/dL Phosphorus 3.2 (2.6-4.7) mg/dL Magnesium 1.8 (1.8-2.4) mg/dl Total Bilirubin 0.4 (0.2-1.0) mg/dL AST 16 (15-37) U/L ALT 15 (14-59) U/L Alkaline Phosphatase 27 L (46-116) U/L C-Reactive Protein 1.5 H* (<1.0) mg/dL Total Protein 5.8 L (6.4-8.2) g/dl Albumin 2.5 L (3.4-5.0) g/dl Globulin 3.3 gm/dL Albumin/Globulin Ratio 0.8 L (1-2) Result Diagrams: 08/09/20 05:24 08/09/20 05:24 Sepsis Event Note - Evaluation Sepsis Screening Result: No Definite Risk - Focused Exam Vital Signs: Vital Signs Temp Pulse Resp BP Pulse Ox Pulse Ox 08/09/20 14:48 98.1 F 80 16 98/64 97 08/09/20 11:30 98.2 F 67 15 91/62 100 08/09/20 09:00 100 08/09/20 08:47 98.4 F 70 16 95/71 98 - Problem List Review Problem List Initiated/Reviewed/Updated: No - My Orders Last 24 Hours: My Active Orders 08/09/20 12:00 Schedule Procedure [COMM] Timed - Assessment Assessment:: Patient has severe GERD exacerbated by recent COVID-19 infection. Not tolerating orals for 10 days now. Needs enteral feeding access. - Plan Plan:: - Unfortunately J-tubes are not available here or in [place]. I discussed this with the patient and we will proceed with Endoscopic GJ tube placement tomorrow. This is instead of J-tube placement which the patient preferred. I offered her to [facility] to [facility] but she elected to proceed with the GJ tube. We discussed risks, benefits and alternatives including bleeding infection, dislodgement, recoil. Informed consent was left at the RN desk for mother to sign.
[2020-08-10] MEDS: Acetaminophen 325 MG/10.15 ML ML PO PRN (01:40)
[2020-08-10] MEDS: Dextrose 5% in Water 1,000 ML IV SCH ×2 (06:05→16:06)
[2020-08-10] MEDS: Levothyroxine 50 MCG Tab PO SCH (06:10)
--- NOTE | 2020-08-10 08:02 | PCM.PN ---
- General Info Date of Service: 08/10/20 Admission Dx/Problem (Free Text): Admission Diagnosis/Problem Admission Diagnosis/Problem Failure to thrive Subjective Update: Patient has eaten some today but vomited some of the food. She is getting weak per mother - Review of Systems Pulmonary: Reports: No Symptoms Cardiovascular: Reports: No Symptoms Gastrointestinal: Reports: No Symptoms Genitourinary: Reports: No Symptoms Musculoskeletal: Reports: No Symptoms - Patient Data Vitals - Most Recent: Last Vital Signs Temp 98.4 F 08/10/20 05:59 Pulse 84 08/10/20 05:59 Resp 20 08/10/20 05:59 BP 99/59 L 08/10/20 05:59 Pulse Ox 94 L 08/10/20 05:59 Orthostatic Blood Pressure [ 80/60 Standing] Orthostatic Blood Pressure [ 86/69 Supine] Weight - Most Recent: 39.599 kg I&O - Last 24 Hours: Intake & Output 08/09/20 08/10/20 08/10/20 22:59 06:59 14:59 Intake Total 1750 1122 Output Total 900 Balance 1750 222 Med Orders - Current: Current Medications Acetaminophen (Tylenol) 650 mg PO Q4H PRN PRN Reason: Pain/Fever Last Admin: 08/10/20 01:40 Dose: 325 mg Documented by: Enoxaparin Sodium (Enoxaparin 30 Mg/0.3 Ml Syringe) 30 mg SUBCUT DAILY [facility] Last Admin: 08/09/20 09:06 Dose: 30 mg Documented by: Dextrose/Water (Dextrose 5% In Water) 1,000 mls @ 100 mls/hr IV ASDIRECTED [facility] Last Admin: 08/10/20 06:05 Dose: 100 mls/hr Documented by: Levothyroxine 50 Mcg (Ptom) 50 mcg PO ACBREAKFAST [facility] Last Admin: 08/08/20 05:40 Dose: Not Given Documented by: Ondansetron HCl (Ondansetron 4 Mg/2 Ml Sdv) 4 mg IV Q4H PRN PRN Reason: Nausea/Vomiting Last Admin: 08/07/20 18:32 Dose: 4 mg Documented by: Pantoprazole Sodium (Pantoprazole 40 Mg Vial) 40 mg IVPUSH Q12H [facility] Last Admin: 08/09/20 21:26 Dose: 40 mg Documented by: Discontinued Medications Acetaminophen (Tylenol) 650 mg PO Q4H PRN PRN Reason: Pain (Mild 1-3)/fever Sodium Chloride (Normal Saline) 1,000 mls @ 999 mls/hr IV ONETIME ONE Stop: 08/06/20 07:57 Last Admin: 08/06/20 07:21 Dose: 999 mls/hr Documented by: Dextrose/Sodium Chloride (Dextrose 5%-1/2 Ns) 1,000 mls @ 75 mls/hr IV ASDIRECTED [facility] Last Admin: 08/06/20 11:58 Dose: 75 mls/hr Documented by: Potassium Chloride/Dextrose/Sod Cl (D5 1/2 Ns W/ 20 Meq/L Kcl) 1,000 mls @ 75 mls/hr IV ASDIRECTED [facility] Last Admin: 08/06/20 23:51 Dose: 75 mls/hr Documented by: Potassium Chloride 10 meq/ (Premix) 100 mls @ 100 mls/hr IV Q1H [facility] Stop: 08/07/20 12:59 Last Admin: 08/07/20 12:54 Dose: 100 mls/hr Documented by: Magnesium Sulfate 4 gm/ Premix 50 mls @ 12.5 mls/hr IV ONETIME ONE Stop: 08/07/20 16:59 Last Admin: 08/07/20 14:14 Dose: 12.5 mls/hr Documented by: - Exam General: Alert, Oriented Lungs: Normal Respiratory Effort - Patient Data Result Diagrams: 08/09/20 05:24 08/09/20 05:24 Sepsis Event Note - Evaluation Sepsis Screening Result: No Definite Risk - Focused Exam Vital Signs: Vital Signs Temp Pulse Resp BP Pulse Ox 08/10/20 05:59 98.4 F 84 20 99/59 L 94 L 08/09/20 20:19 98.2 F 70 16 101/67 99 - Problem List Review Problem List Initiated/Reviewed/Updated: No - My Orders Last 24 Hours: My Active Orders 08/09/20 12:00 Schedule Procedure [COMM] Timed - Assessment Assessment:: Patient has severe GERD exacerbated by recent COVID-19 infection. Not tolerating orals for 10 days now. Needs enteral feeding access. - Plan Plan:: - Patient mother changed her mind about the GJ tube. She now wants a J-tube. Since we cannot do it here owing to lack of appropriate equipments, we david transfer the patient to [facility] to attempt to get it there. This is what patient's mother wants. Plan discussed with Dr. Spear, hospitalist on duty.
[2020-08-10] MEDS: Enoxaparin 30 MG/0.3 ML Syringe SUBCUT SCH (10:23)
[2020-08-10] MEDS: Pantoprazole 40 MG Vial IVPUSH SCH ×2 (10:24→22:23)
--- NOTE | 2020-08-10 15:09 | PCM.PN ---
- General Info Date of Service: 08/10/20 Subjective Update: Discussed with patient's mom on several occasions today a feeding tube. A transfer had been requested after a J tube was not available. The GJ tube was declined today, and a transfer requested. Not surprisingly, the transfer to [facility] was declined, and will not be possible for at least 2 weeks since the patient is COVID-19 positive. Functional Status: Reports: Urinating - Review of Systems General: Reports: No Symptoms HEENT: Reports: No Symptoms Pulmonary: Reports: No Symptoms Cardiovascular: Reports: No Symptoms Gastrointestinal: Reports: Decreased Appetite Genitourinary: Reports: No Symptoms Musculoskeletal: Reports: No Symptoms Skin: Reports: No Symptoms Neurological: Reports: No Symptoms Psychiatric: Reports: No Symptoms - Patient Data Vitals - Most Recent: Last Vital Signs Temp 36.3 C 08/10/20 07:49 Pulse 68 08/10/20 07:49 Resp 20 08/10/20 07:49 BP 94/58 L 08/10/20 07:49 Pulse Ox 98 08/10/20 07:49 Orthostatic Blood Pressure [ 80/60 Standing] Orthostatic Blood Pressure [ 86/69 Supine] Weight - Most Recent: 39.599 kg I&O - Last 24 Hours: Intake & Output 08/10/20 08/10/20 08/10/20 06:59 14:59 22:59 Intake Total 1122 Output Total 900 Balance 222 Med Orders - Current: Current Medications Acetaminophen (Acetaminophen 325 Mg/10.15 Ml Ml) 650 mg PO Q4H PRN PRN Reason: Pain/Fever Last Admin: 08/10/20 01:40 Dose: 325 mg Documented by: Enoxaparin Sodium (Enoxaparin 30 Mg/0.3 Ml Syringe) 30 mg SUBCUT DAILY [facility] Last Admin: 08/10/20 10:23 Dose: 30 mg Documented by: Dextrose/Water (Dextrose 5% In Water) 1,000 mls @ 100 mls/hr IV ASDIRECTED [facility] Last Admin: 08/10/20 06:05 Dose: 100 mls/hr Documented by: Levothyroxine Sodium (Levothyroxine 50 Mcg Tab) 50 mcg PO ACBREAKFAST [facility] Last Admin: 08/10/20 06:10 Dose: Not Given Documented by: Ondansetron HCl (Ondansetron 4 Mg/2 Ml Sdv) 4 mg IV Q4H PRN PRN Reason: Nausea/Vomiting Last Admin: 08/07/20 18:32 Dose: 4 mg Documented by: Pantoprazole Sodium (Pantoprazole 40 Mg Vial) 40 mg IVPUSH Q12H [facility] Last Admin: 08/10/20 10:24 Dose: 40 mg Documented by: Discontinued Medications Acetaminophen (Tylenol) 650 mg PO Q4H PRN PRN Reason: Pain (Mild 1-3)/fever Sodium Chloride (Normal Saline) 1,000 mls @ 999 mls/hr IV ONETIME ONE Stop: 08/06/20 07:57 Last Admin: 08/06/20 07:21 Dose: 999 mls/hr Documented by: Dextrose/Sodium Chloride (Dextrose 5%-1/2 Ns) 1,000 mls @ 75 mls/hr IV ASDIRECTED [facility] Last Admin: 08/06/20 11:58 Dose: 75 mls/hr Documented by: Potassium Chloride/Dextrose/Sod Cl (D5 1/2 Ns W/ 20 Meq/L Kcl) 1,000 mls @ 75 mls/hr IV ASDIRECTED [facility] Last Admin: 08/06/20 23:51 Dose: 75 mls/hr Documented by: Potassium Chloride 10 meq/ (Premix) 100 mls @ 100 mls/hr IV Q1H [facility] Stop: 08/07/20 12:59 Last Admin: 08/07/20 12:54 Dose: 100 mls/hr Documented by: Magnesium Sulfate 4 gm/ Premix 50 mls @ 12.5 mls/hr IV ONETIME ONE Stop: 08/07/20 16:59 Last Admin: 08/07/20 14:14 Dose: 12.5 mls/hr Documented by: Sodium Chloride (Normal Saline) 500 mls @ 999 mls/hr IV ONETIME ONE Stop: 08/07/20 22:44 Last Admin: 08/07/20 22:30 Dose: 999 mls/hr Documented by: Sodium Chloride (Normal Saline) Confirm Administered Dose 1,000 mls @ as directed .ROUTE .STK-MED ONE Stop: 08/07/20 22:24 Last Admin: 08/08/20 05:39 Dose: Not Given Documented by: Sodium Chloride (Normal Saline) 500 mls @ 999 mls/hr IV .BOLUS ONE Stop: 08/08/20 18:55 Last Admin: 08/08/20 18:40 Dose: 999 mls/hr Documented by: Albumin Human (Flexbumin 25%) 12.5 gm in 50 mls @ 100 mls/hr IV ONETIME ONE Stop: 08/08/20 19:44 Last Admin: 08/08/20 21:20 Dose: 100 mls/hr Documented by: Sodium Chloride (Normal Saline) 500 mls @ 999 mls/hr IV .BOLUS ONE Stop: 08/09/20 00:14 Last Admin: 08/09/20 00:04 Dose: 999 mls/hr Documented by: Influenza Virus Vaccine (Pharmacy To Dose - Influenza Vaccine) 1 each IM ONETIME ONE Stop: 08/08/20 11:39 Influenza Virus Vaccine (Flu Vacc [id number](6mos Up)/Pf 60 Mcg/0.5 Ml Syringe) 60 mcg IM .ONCE ONE Stop: 08/08/20 12:31 Levothyroxine 50 Mcg (Ptom) 50 mcg PO ACBREAKFAST [facility] Last Admin: 08/08/20 05:40 Dose: Not Given Documented by: - Exam Quality Assessment: DVT Prophylaxis General: Alert HEENT: Pupils Equal, Pupils Reactive, EOMI Neck: Trachea Midline, No JVD Lungs: Normal Respiratory Effort Cardiovascular: Regular Rate, Regular Rhythm GI/Abdominal Exam: Soft, Non-Tender (Female) Exam: Deferred Back Exam: Normal Inspection Extremities: Normal Inspection, Normal Range of Motion Skin: Warm Neurological: No New Focal Deficit Psy/Mental Status: Alert - Patient Data Result Diagrams: 08/09/20 05:24 08/09/20 05:24 Sepsis Event Note - Evaluation Sepsis Screening Result: No Definite Risk - Focused Exam Vital Signs: Vital Signs Temp Pulse Resp BP Pulse Ox 08/10/20 07:49 36.3 C 68 20 94/58 L 98 08/10/20 05:59 36.9 C 84 20 99/59 L 94 L - Problem List & Annotations (1) Anorexia SNOMED Code(s): 88963814 Code(s): R63.0 - ANOREXIA Status: Acute Current Visit: Yes (2) Esophagitis SNOMED Code(s): 83618523 Code(s): K20.90 - ESOPHAGITIS, UNSPECIFIED WITHOUT BLEEDING Status: Acute Current Visit: Yes (3) Failure to thrive SNOMED Code(s): 95550479 Code(s): QDF6132 - Status: Acute Current Visit: Yes (4) GERD (gastroesophageal reflux disease) SNOMED Code(s): 427770003 Code(s): K21.9 - GASTRO-ESOPHAGEAL REFLUX DISEASE WITHOUT ESOPHAGITIS Status: Acute Current Visit: Yes (5) Hypotension SNOMED Code(s): 05698418 Code(s): I95.9 - HYPOTENSION, UNSPECIFIED Status: Acute Current Visit: Yes (6) COVID-19 SNOMED Code(s): 892198106 Code(s): U07.1 - COVID-19 Status: Acute Current Visit: No (7) Chorea SNOMED Code(s): 673253547 Code(s): G25.5 - OTHER CHOREA Status: Acute Current Visit: No (8) Constipation SNOMED Code(s): 53915471 Code(s): K59.00 - CONSTIPATION, UNSPECIFIED Status: Acute Current Visit: No Qualifiers: Constipation type: unspecified constipation type Qualified Code(s): K59.00 - Constipation, unspecified - Problem List Review Problem List Initiated/Reviewed/Updated: Yes - My Orders Last 24 Hours: My Active Orders 08/09/20 Dinner NPO After Midnight [Nothing per Oral After Midnight Diet] [DIET] 08/10/20 14:22 Consult to Dietary [Consult to Launch Engineer] [CONS] Routine 08/10/20 14:58 PICC Line Insertion [CR] Routine - Plan Plan:: Plan:: 08/06/2020 Assessment 30-year-old female with Down syndrome has had a 15 pound weight loss over the last year when she was admitted for similar episode. Last year patient had a CT of the abdomen, EGD, colonoscopy, and was found to have erosive gastritis. Patient was also found to be self inducing vomiting by sticking her finger down her throat. When asked why she was doing that she states that she was anxious and it made her feel better. She was seen by psychiatry at that time. 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[place], [place] * 15 pound weight loss from last hospitalization in August 2019 * No longer on duloxetine * Currently on omeprazole 10 mg liquid daily but has not been taking it for the last for 5 days * Patient may need PEG tube placement secondary to chronic anorexia and weight loss Plan * Refer for observation * Protonix 40 mg IV every 12 hours * D5 half-normal saline at 75 mL an hour * Nutrition consult * PT OT consult * Respiratory isolation * Considered surgical consult for PEG placement if patient does not increase oral intake * Patient will likely need long-term nutritional support since she developed a phobia of swallowing. She will likely pull the NG tube out and it does not encourage her to take orally. * CODE STATUS: Full code * VTE prophylaxis with Lovenox 08/07/2020 Patient did not tolerate any oral intake yesterday. After discussion with her mother she would like to progress with feeding tube placement. Dietary recommends a J-tube secondary to her severe reflux. Dr. Harding and surgery will be consulted. We will request old records in regards to her gastrointestinal studies. These include EGD, colonoscopy, CT scan, and notes from her rn internal medicine at [facility]. Patient did have some hypernatremia today so her fluids will be switched to D5 W with 20 mEq of KCl. She will also get 40 mEq of KCl IV throughout today. She will continue on respiratory isolation for her COVID-19 infection. Patient continues to be asymptomatic in regards to respiratory symptoms of COVID-19. Continue daily weights. Continue Protonix 40 mg IV every 12 hours. Patient refused her levothyroxine this morning. 08/08/2020 Patient had another day of very poor oral intake. She also had hypotensive episode last night even though she has been getting maintenance fluids. Patient has a history of reflux with erosive esophagitis. She also has history of bulimia last year. There is great concern that she will need a feeding tube placed distally to the stomach secondary to her gagging and retching every time she has anything on her stomach. Unfortunately, Dr. Harding was tied up y esterday with emergency surgeries all day and was unable to see her yesterday. He plans on seeing her today. Electrolytes today are back to normal, but we will continue to have to follow those with her poor oral intake. Discharge will likely be next week and may need to be to a halfway facility. Mother is unsure if she will be able to take care of her at home. 08/09/20 GJ tube rescheduled, it will be placed on 08/10/20; the equipment had to be ordered and will arrive from [place]. Plan: Discussed with Dr. Harding, planned G Tube. Continue IV fluids and encourage oral intake. Continue respiratory isolation for COVID-19. 08/10/20 Attempted to transfer patient to [facility], this was declined d/t COVID + status. Discussed with patient's mom the possibility of TPN/PPN. Have also ordered a a PICC line. The Dietary consult has been expanded.
[2020-08-10] MEDS ORDERED: COPPER IV ONE ×3 (18:00)
[2020-08-10] MEDS ORDERED: CHROMIUM IV ONE ×3 (18:00)
[2020-08-10] MEDS ORDERED: VITAMIN K IV ONE ×3 (18:00)
[2020-08-10] MEDS ORDERED: ZINC IV ONE ×3 (18:00)
[2020-08-10] MEDS ORDERED: [UNRECOGNIZED DRUG - OTHER] IV ONE ×3 (18:00)
[2020-08-10] MEDS ORDERED: MVI IV ONE ×3 (18:00)
[2020-08-10] MEDS ORDERED: MANG IV ONE ×3 (18:00)
[2020-08-11] MEDS: Levothyroxine 50 MCG Tab PO SCH (06:59)
--- NOTE | 2020-08-11 07:33 | PCM.PN ---
- General Info Date of Service: 08/11/20 Subjective Update: Discussed with patient's mom plan for GJ per Dr Harding/Gen Surg. Currently she has PPN, the patient continues to struggle with an eating vomiting cycle. Will review available pharmaceutical options to suppress possible reflexive emesis. In the meantime, a 2D echo re: ASD/VSD has been ordered for Thursday, 08/14; also [facility] records for GI work up as well as ACHD (Adult congenital heart disease) will be requested. GJ will be scheduled sometime next week. - Review of Systems General: Reports: Weakness HEENT: Reports: No Symptoms Pulmonary: Reports: No Symptoms Cardiovascular: Reports: No Symptoms Gastrointestinal: Reports: No Symptoms Genitourinary: Reports: No Symptoms Musculoskeletal: Reports: No Symptoms Skin: Reports: No Symptoms Neurological: Reports: No Symptoms Psychiatric: Reports: No Symptoms - Patient Data Vitals - Most Recent: Last Vital Signs Temp 36.7 C 08/10/20 22:16 Pulse 63 08/10/20 22:16 Resp 12 08/10/20 22:16 BP 104/64 08/10/20 22:16 Pulse Ox 99 08/10/20 22:16 Orthostatic Blood Pressure [ 80/60 Standing] Orthostatic Blood Pressure [ 86/69 Supine] Weight - Most Recent: 39.961 kg I&O - Last 24 Hours: Intake & Output 08/10/20 08/11/20 08/11/20 22:59 06:59 14:59 Intake Total 1640 Balance 1640 Lab Results Last 24 Hours: Laboratory Results - last 24 hr 08/10/20 08/11/20 08/11/20 Range/Units 18:02 00:27 05:54 Sodium 148 H (136-145) mEq/L Potassium 3.5 (3.5-5.1) mEq/L Chloride 111 H (98-107) mEq/L Carbon Dioxide 30 (21-32) mEq/L Anion Gap 10.5 (5-15) BUN 8 (7-18) mg/dL Creatinine 0.9 (0.55-1.02) mg/dL Est Cr Clr Drug Dosing 56.10 mL/min Estimated GFR (MDRD) > 60 (>60) mL/min BUN/Creatinine Ratio 8.9 L (14-18) Glucose 87 (74-106) mg/dL POC Glucose 100 141 H (70-105) mg/dL Calcium 8.8 (8.5-10.1) mg/dL Magnesium 1.9 (1.8-2.4) mg/dl Med Orders - Current: Current Medications Acetaminophen (Acetaminophen 325 Mg/10.15 Ml Ml) 650 mg PO Q4H PRN PRN Reason: Pain/Fever Last Admin: 08/10/20 01:40 Dose: 325 mg Documented by: Enoxaparin Sodium (Enoxaparin 30 Mg/0.3 Ml Syringe) 30 mg SUBCUT DAILY [facility] Last Admin: 08/10/20 10:23 Dose: 30 mg Documented by: Multivitamins/Minerals 10 ml/Chromium/Copper/Manganese/Zinc 1 ml/ Amino Acids/Electrolytes/Dextrose 1,011 mls @ 25 mls/hr IV ONETIME ONE Stop: 08/12/20 10:26 Last Admin: 08/10/20 18:06 Dose: 25 mls/hr Documented by: Fat Emulsion Intravenous (Intralipid 20%) 200 mls @ 25 mls/hr IV [id number]@1800 [facility] Last Admin: 08/10/20 18:36 Dose: 25 mls/hr Documented by: Levothyroxine Sodium (Levothyroxine 50 Mcg Tab) 50 mcg PO ACBREAKFAST [facility] Last Admin: 08/11/20 06:59 Dose: 50 mcg Documented by: Ondansetron HCl (Ondansetron 4 Mg/2 Ml Sdv) 4 mg IV Q4H PRN PRN Reason: Nausea/Vomiting Last Admin: 08/07/20 18:32 Dose: 4 mg Documented by: Pantoprazole Sodium (Pantoprazole 40 Mg Vial) 40 mg IVPUSH Q12H [facility] Last Admin: 08/10/20 22:23 Dose: 40 mg Documented by: Discontinued Medications Acetaminophen (Tylenol) 650 mg PO Q4H PRN PRN Reason: Pain (Mild 1-3)/fever Sodium Chloride (Normal Saline) 1,000 mls @ 999 mls/hr IV ONETIME ONE Stop: 08/06/20 07:57 Last Admin: 08/06/20 07:21 Dose: 999 mls/hr Documented by: Dextrose/Sodium Chloride (Dextrose 5%-1/2 Ns) 1,000 mls @ 75 mls/hr IV ASDIRECTED [facility] Last Admin: 08/06/20 11:58 Dose: 75 mls/hr Documented by: Potassium Chloride/Dextrose/Sod Cl (D5 1/2 Ns W/ 20 Meq/L Kcl) 1,000 mls @ 75 mls/hr IV ASDIRECTED [facility] Last Admin: 08/06/20 23:51 Dose: 75 mls/hr Documented by: Potassium Chloride 10 meq/ (Premix) 100 mls @ 100 mls/hr IV Q1H [facility] Stop: 08/07/20 12:59 Last Admin: 08/07/20 12:54 Dose: 100 mls/hr Documented by: Magnesium Sulfate 4 gm/ Premix 50 mls @ 12.5 mls/hr IV ONETIME ONE Stop: 08/07/20 16:59 Last Admin: 08/07/20 14:14 Dose: 12.5 mls/hr Documented by: Dextrose/Water (Dextrose 5% In Water) 1,000 mls @ 100 mls/hr IV ASDIRECTED [facility] Last Admin: 08/10/20 16:06 Dose: 100 mls/hr Documented by: Sodium Chloride (Normal Saline) 500 mls @ 999 mls/hr IV ONETIME ONE Stop: 08/07/20 22:44 Last Admin: 08/07/20 22:30 Dose: 999 mls/hr Documented by: Sodium Chloride (Normal Saline) Confirm Administered Dose 1,000 mls @ as directe d .ROUTE .STK-MED ONE Stop: 08/07/20 22:24 Last Admin: 08/08/20 05:39 Dose: Not Given Documented by: Sodium Chloride (Normal Saline) 500 mls @ 999 mls/hr IV .BOLUS ONE Stop: 08/08/20 18:55 Last Admin: 08/08/20 18:40 Dose: 999 mls/hr Documented by: Albumin Human (Flexbumin 25%) 12.5 gm in 50 mls @ 100 mls/hr IV ONETIME ONE Stop: 08/08/20 19:44 Last Admin: 08/08/20 21:20 Dose: 100 mls/hr Documented by: Sodium Chloride (Normal Saline) 500 mls @ 999 mls/hr IV .BOLUS ONE Stop: 08/09/20 00:14 Last Admin: 08/09/20 00:04 Dose: 999 mls/hr Documented by: Influenza Virus Vaccine (Pharmacy To Dose - Influenza Vaccine) 1 each IM ONETIME ONE Stop: 08/08/20 11:39 Influenza Virus Vaccine (Flu Vacc [id number](6mos Up)/Pf 60 Mcg/0.5 Ml Syringe) 60 mcg IM .ONCE ONE Stop: 08/08/20 12:31 Levothyroxine 50 Mcg (Ptom) 50 mcg PO ACBREAKFAST [facility] Last Admin: 08/08/20 05:40 Dose: Not Given Documented by: - Exam Quality Assessment: Supplemental Oxygen, DVT Prophylaxis General: Alert, Oriented HEENT: Pupils Equal, Pupils Reactive, EOMI Neck: Trachea Midline, No JVD Lungs: Normal Respiratory Effort, Decreased Breath Sounds Cardiovascular: Regular Rate, Regular Rhythm, Murmurs GI/Abdominal Exam: Normal Bowel Sounds, Soft, Non-Tender (Female) Exam: Deferred Back Exam: Normal Inspection Extremities: Normal Inspection, Normal Capillary Refill Skin: Warm Neurological: No New Focal Deficit, Normal Speech Psy/Mental Status: Alert - Patient Data Lab Results Last 24 hrs: Laboratory Results - last 24 hr 08/10/20 08/11/20 08/11/20 Range/Units 18:02 00:27 05:54 Sodium 148 H (136-145) mEq/L Potassium 3.5 (3.5-5.1) mEq/L Chloride 111 H (98-107) mEq/L Carbon Dioxide 30 (21-32) mEq/L Anion Gap 10.5 (5-15) BUN 8 (7-18) mg/dL Creatinine 0.9 (0.55-1.02) mg/dL Est Cr Clr Drug Dosing 56.10 mL/min Estimated GFR (MDRD) > 60 (>60) mL/min BUN/Creatinine Ratio 8.9 L (14-18) Glucose 87 (74-106) mg/dL POC Glucose 100 141 H (70-105) mg/dL Calcium 8.8 (8.5-10.1) mg/dL Magnesium 1.9 (1.8-2.4) mg/dl Result Diagrams: 08/09/20 05:24 08/11/20 05:54 Sepsis Event Note - Evaluation Sepsis Screening Result: No Definite Risk - Focused Exam Vital Signs: Vital Signs Temp Pulse Resp BP Pulse Ox 08/10/20 22:16 36.7 C 63 12 104/64 99 - Problem List & Annotations (1) Anorexia SNOMED Code(s): 88277643 Code(s): R63.0 - ANOREXIA Status: Acute Current Visit: Yes (2) Esophagitis SNOMED Code(s): 65110987 Code(s): K20.90 - ESOPHAGITIS, UNSPECIFIED WITHOUT BLEEDING Status: Acute Current Visit: Yes (3) Failure to thrive SNOMED Code(s): 18645408 Code(s): NML4034 - Status: Acute Current Visit: Yes (4) GERD (gastroesophageal reflux disease) SNOMED Code(s): 676208422 Code(s): K21.9 - GASTRO-ESOPHAGEAL REFLUX DISEASE WITHOUT ESOPHAGITIS Status: Acute Current Visit: Yes (5) Hypotension SNOMED Code(s): 56049452 Code(s): I95.9 - HYPOTENSION, UNSPECIFIED Status: Acute Current Visit: Yes (6) COVID-19 SNOMED Code(s): 051778047 Code(s): U07.1 - COVID-19 Status: Acute Current Visit: No (7) Chorea SNOMED Code(s): 131919385 Code(s): G25.5 - OTHER CHOREA Status: Acute Current Visit: No (8) Constipation SNOMED Code(s): 84856626 Code(s): K59.00 - CONSTIPATION, UNSPECIFIED Status: Acute Current Visit: No Qualifiers: Constipation type: unspecified constipation type Qualified Code(s): K59.00 - Constipation, unspecified - Problem List Review Problem List Initiated/Reviewed/Updated: Yes - My Orders Last 24 Hours: My Active Orders 08/10/20 14:22 Consult to Dietary [Consult to Scheduling Manager] [CONS] Routine 08/10/20 Dinner Regular Diet [DIET] 08/10/20 18:00 Blood Glucose Check, Bedside [RC] Q6HR Fat Emulsion [Intralipid 20%] 200 ml IV MoWeFr@1800 [facility], Adult with Vitamin K [Infuvite Adult] 10 ml Chromium/Copper/Terrell/Zinc [Multitrace-4 Concentrate] 1 ml AA 4.25%/D5W/Calcium/Lytes [Clinimix E 4.25/5] 1,000 ml IV ONETIME 08/12/20 05:00 BASIC METABOLIC PANEL,BMP [CHEM] DAILY MG [MAGNESIUM] [CHEM] DAILY 08/13/20 05:00 BASIC METABOLIC PANEL,BMP [CHEM] DAILY MG [MAGNESIUM] [CHEM] DAILY 08/14/20 07:30 Echo Comp wo Cont [US] Routine - Assessment Assessment:: Patient has severe GERD exacerbated by recent COVID-19 infection. Not tolerating orals for 10 days now. Needs enteral feeding access. - Plan Plan:: Plan:: 08/06/2020 Assessment 30-year-old female with Down syndrome has had a 15 pound weight loss over the last year when she was admitted for similar episode. Last year patient had a CT of the abdomen, EGD, colonoscopy, and was found to have erosive gastritis. Patient was also found to be self inducing vomiting by sticking her finger down her throat. When asked why she was doing that she states that she was anxious and it made her feel better. She was seen by psychiatry at that time. 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[place], [place] * 15 pound weight loss from last hospitalization in August 2019 * No longer on duloxetine * Currently on omeprazole 10 mg liquid daily but has not been taking it for the last for 5 days * Patient may need PEG tube placement secondary to chronic anorexia and weight loss Plan * Refer for observation * Protonix 40 mg IV every 12 hours * D5 half-normal saline at 75 mL an hour * Nutrition consult * PT OT consult * Respiratory isolation * Considered surgical consult for PEG placement if patient does not increase oral intake * Patient will likely need long-term nutritional support since she developed a phobia of swallowing. She will likely pull the NG tube out and it does not encourage her to take orally. * CODE STATUS: Full code * VTE prophylaxis with Lovenox 08/07/2020 Patient did not tolerate any oral intake yesterday. After discussion with her mother she would like to progress with feeding tube placement. Dietary recommends a J-tube secondary to her severe reflux. Dr. Harding and surgery will be consulted. We will request old records in regards to her gastrointestinal studies. These include EGD, colonoscopy, CT scan, and notes from her rn pacu at [facility]. Patient did have some hypernatremia today so her fluids will be switched to D5 W with 20 mEq of KCl. She will also get 40 mEq of KCl IV throughout today. She will continue on respiratory isolation for her COVID-19 infection. Patient continues to be asymptomatic in regards to respiratory symptoms of COVID-19. Continue daily weights. Continue Protonix 40 mg IV every 12 hours. Patient refused her levothyroxine this morning. 08/08/2020 Patient had another day of very poor oral intake. She also had hypotensive episode last night even though she has been getting maintenance fluids. Patient has a history of reflux with erosive esophagitis. She also has history of bulimia last year. There is great concern that she will need a feeding tube placed distally to the stomach secondary to her gagging and retching every time she has anything on her stomach. Unfortunately, Dr. Harding was tied up yesterday with emergency surgeries all day and was unable to see her yesterday. He plans on seeing her today. Electrolytes today are back to normal, but we will continue to have to follow those with her poor oral intake. Discharge will likely be next week and may need to be to a correction facility. Mother is unsure if she will be able to take care of her at home. 08/09/20 GJ tube rescheduled, it will be placed on 08/10/20; the equipment had to be ordered and will arrive from [place]. Plan: Discussed with Dr. Harding, planned G Tube. Continue IV fluids and encourage oral intake. Continue respiratory isolation for COVID-19. 08/10/20 Attempted to transfer patient to [facility], this was declined d/t COVID + status. Discussed with patient's mom the possibility of TPN/PPN. Have also ordered a a PICC line. The Dietary consult has been expanded. 08/11/20 NEW GAME PLAN Patient's mom and Gen Surg provider will proceed with GJ tube, next wee PPN, additional labs, etc per protocol Gen SURG re: GJ tube, TBA the week of 08/13/20 2D echo re: ASD/VSD (color doppler) [facility] EMR request re: GI/Gen Surg (feeding tube); ACHD (ASD/VSD) LOS>>96 hours d/t treatment needs, lack of available equipment and request for transfer. Please see comment provided yesterday.
[2020-08-11] MEDS: Enoxaparin 30 MG/0.3 ML Syringe SUBCUT SCH (09:51)
[2020-08-11] MEDS: Pantoprazole 40 MG Vial IVPUSH SCH ×2 (09:57→20:51)
[2020-08-11] MEDS: Potassium Chloride 10 MEQ in Premix Bag 1 BAG IV SCH ×2 (09:58→11:05)
[2020-08-11] MEDS ORDERED: MANG IV ONE ×3 (12:00)
[2020-08-11] MEDS ORDERED: MVI IV ONE ×3 (12:00)
[2020-08-11] MEDS ORDERED: [UNRECOGNIZED DRUG - OTHER] IV ONE ×3 (12:00)
[2020-08-11] MEDS ORDERED: CHROMIUM IV ONE ×3 (12:00)
[2020-08-11] MEDS ORDERED: VITAMIN K IV ONE ×3 (12:00)
[2020-08-11] MEDS ORDERED: ZINC IV ONE ×3 (12:00)
[2020-08-11] MEDS ORDERED: COPPER IV ONE ×3 (12:00)
--- NOTE | 2020-08-11 12:34 | PCM.SN.2 ---
- Free Text/Narrative Note: I talked with the patient's mother today. She reports that the patient tried to eat again some macaroni and cheese but vomited it again. She was started on PPN later night and currently it is running. Patient appears well. No distress. PPN is going through peripheral IV. Mother discussed with a photolettering machine operator about feeding tube options and explained about the GJ tube. The mother is now comfortable with the GJ tube and she told me she discussed this with the patient's father who is also comfortable with this tube. Due to her hx of ASA and VSD, Dr. Spear is obtaining an Echocardiogram on Monday 08/14 and getting records from [facility]. Once we have the results of the Echo and records from [place] then we will review everything and make a plan for GJ tube placement. I discussed this plan with patient's mother who is in agreement.
[2020-08-11] MEDS ORDERED: [UNRECOGNIZED DRUG - REMARK] ONE (18:00)
[2020-08-12] MEDS: Pantoprazole 40 MG Vial IVPUSH SCH ×3 (04:59→21:31)
[2020-08-12] MEDS: Levothyroxine 50 MCG Tab PO SCH (05:43)
[2020-08-12] MEDS ORDERED: [UNRECOGNIZED DRUG - REMARK] ONE (06:00)
[2020-08-12] MEDS: Potassium Chloride 10 MEQ in Premix Bag 1 BAG IV SCH ×2 (09:21→11:21)
[2020-08-12] MEDS: Enoxaparin 30 MG/0.3 ML Syringe SUBCUT SCH (09:21)
[2020-08-12 10:21] LABS: HEMOGLOBIN A1C 5.4 %
[2020-08-12] MEDS ORDERED: Sodium Chloride 0.9% 1,000 ML IV SCH (10:30)
[2020-08-12] MEDS ORDERED: Potassium Chloride 10 MEQ in Premix Bag 1 BAG IV ONE (11:00)
[2020-08-12] MEDS ORDERED: ZINC IV ONE ×3 (11:30)
[2020-08-12] MEDS ORDERED: COPPER IV ONE ×3 (11:30)
[2020-08-12] MEDS ORDERED: [UNRECOGNIZED DRUG - OTHER] IV ONE ×3 (11:30)
[2020-08-12] MEDS ORDERED: CHROMIUM IV ONE ×3 (11:30)
[2020-08-12] MEDS ORDERED: MANG IV ONE ×3 (11:30)
[2020-08-12] MEDS ORDERED: MVI IV ONE ×3 (11:30)
[2020-08-12] MEDS ORDERED: VITAMIN K IV ONE ×3 (11:30)
--- NOTE | 2020-08-12 12:00 | PCM.PN ---
- General Info Date of Service: 08/12/20 Admission Dx/Problem (Free Text): Admission Diagnosis/Problem Admission Diagnosis/Problem Failure to thrive Subjective Update: No real change overnight. Patient did eat a little more last night, but then vomited most of it up. She continues on PPN. Patient is having difficulty leaving the IV alone. Initially it seemed to be bothering her, but now she seems to be fixated on it. Functional Status: Reports: Pain Controlled, Other (Unable to communicate review of systems) - Patient Data Vitals - Most Recent: Last Vital Signs Temp 98.2 F 08/12/20 09:25 Pulse 79 08/12/20 09:25 Resp 14 08/12/20 09:25 BP 85/59 L 08/12/20 09:25 Pulse Ox 100 08/12/20 09:25 Orthostatic Blood Pressure [ 80/60 Standing] Orthostatic Blood Pressure [ 86/69 Supine] Weight - Most Recent: 90 lb 4.8 oz I&O - Last 24 Hours: Intake & Output 08/11/20 08/12/20 08/12/20 21:59 06:59 14:59 Intake Total Balance Lab Results Last 24 Hours: Laboratory Results - last 24 hr 08/11/20 08/11/20 08/12/20 Range/Units 12:13 18:02 00:46 WBC (3.98-10.04) K/mm3 RBC (3.98-5.22) M/mm3 Hgb (11.2-15.7) gm/dl Hct (34.1-44.9) % MCV (79.4-94.8) fl MCH (25.6-32.2) pg MCHC (32.2-35.5) g/dl RDW Std Deviation (36.4-46.3) fL Plt Count (182-369) K/mm3 MPV (9.4-12.3) fl Neut % (Auto) (34.0-71.1) % Lymph % (Auto) (19.3-51.7) % Dane % (Auto) (4.7-12.5) % Eos % (Auto) (0.7-5.8) Baso % (Auto) (0.1-1.2) % Neut # (Auto) (1.56-6.13) K/mm3 Lymph # (Auto) (1.18-3.74) K/mm3 Dane # (Auto) (0.24-0.36) K/mm3 Eos # (Auto) (0.04-0.36) K/mm3 Baso # (Auto) (0.01-0.08) K/mm3 Manual Slide Review Sodium (136-145) mEq/L Potassium (3.5-5.1) mEq/L Chloride (98-107) mEq/L Carbon Dioxide (21-32) mEq/L Anion Gap (5-15) BUN (7-18) mg/dL Creatinine (0.55-1.02) mg/dL Est Cr Clr Drug Dosing mL/min Estimated GFR (MDRD) (>60) mL/min BUN/Creatinine Ratio (14-18) Glucose (74-106) mg/dL POC Glucose 99 122 H 125 H (70-105) mg/dL Hemoglobin A1c ( - 5.6) % Calcium (8.5-10.1) mg/dL Magnesium (1.8-2.4) mg/dl C-Reactive Protein (<1.0) mg/dL 08/12/20 08/12/20 08/12/20 Range/Units 04:41 06:06 06:06 WBC 5.08 (3.98-10.04) K/mm3 RBC 4.09 (3.98-5.22) M/mm3 Hgb 12.8 (11.2-15.7) gm/dl Hct 39.1 (34.1-44.9) % MCV 95.6 H (79.4-94.8) fl MCH 31.3 (25.6-32.2) pg MCHC 32.7 (32.2-35.5) g/dl RDW Std Deviation 47.9 H (36.4-46.3) fL Plt Count 201 (182-369) K/mm3 MPV 11.3 (9.4-12.3) fl Neut % (Auto) 36.4 (34.0-71.1) % Lymph % (Auto) 45.9 (19.3-51.7) % Dane % (Auto) 11.2 (4.7-12.5) % Eos % (Auto) 1.4 (0.7-5.8) Baso % (Auto) 1.2 (0.1-1.2) % Neut # (Auto) 1.85 (1.56-6.13) K/mm3 Lymph # (Auto) 2.33 (1.18-3.74) K/mm3 Dane # (Auto) 0.57 H (0.24-0.36) K/mm3 Eos # (Auto) 0.07 (0.04-0.36) K/mm3 Baso # (Auto) 0.06 (0.01-0.08) K/mm3 Manual Slide Review Normal smear Sodium 145 (136-145) mEq/L Potassium 3.4 L (3.5-5.1) mEq/L Chloride 108 H (98-107) mEq/L Carbon Dioxide 30 (21-32) mEq/L Anion Gap 10.4 (5-15) BUN 17 (7-18) mg/dL Creatinine 1.0 (0.55-1.02) mg/dL Est Cr Clr Drug Dosing 52.22 mL/min Estimated GFR (MDRD) > 60 (>60) mL/min BUN/Creatinine Ratio 17.0 (14-18) Glucose 83 (74-106) mg/dL POC Glucose 104 (70-105) mg/dL Hemoglobin A1c ( - 5.6) % Calcium 8.7 (8.5-10.1) mg/dL Magnesium 2.1 (1.8-2.4) mg/dl C-Reactive Protein 0.8 (<1.0) mg/dL 08/12/20 Range/Units 06:06 WBC (3.98-10.04) K/mm3 RBC (3.98-5.22) M/mm3 Hgb (11.2-15.7) gm/dl Hct (34.1-44.9) % MCV (79.4-94.8) fl MCH (25.6-32.2) pg MCHC (32.2-35.5) g/dl RDW Std Deviation (36.4-46.3) fL Plt Count (182-369) K/mm3 MPV (9.4-12.3) fl Neut % (Auto) (34.0-71.1) % Lymph % (Auto) (19.3-51.7) % Dane % (Auto) (4.7-12.5) % Eos % (Auto) (0.7-5.8) Baso % (Auto) (0.1-1.2) % Neut # (Auto) (1.56-6.13) K/mm3 Lymph # (Auto) (1.18-3.74) K/mm3 Dane # (Auto) (0.24-0.36) K/mm3 Eos # (Auto) (0.04-0.36) K/mm3 Baso # (Auto) (0.01-0.08) K/mm3 Manual Slide Review Sodium (136-145) mEq/L Potassium (3.5-5.1) mEq/L Chloride (98-107) mEq/L Carbon Dioxide (21-32) mEq/L Anion Gap (5-15) BUN (7-18) mg/dL Creatinine (0.55-1.02) mg/dL Est Cr Clr Drug Dosing mL/min Estimated GFR (MDRD) (>60) mL/min BUN/Creatinine Ratio (14-18) Glucose (74-106) mg/dL POC Glucose (70-105) mg/dL Hemoglobin A1c 5.4 ( - 5.6) % Calcium (8.5-10.1) mg/dL Magnesium (1.8-2.4) mg/dl C-Reactive Protein (<1.0) mg/dL Med Orders - Current: Current Medications Acetaminophen (Acetaminophen 325 Mg/10.15 Ml Ml) 650 mg PO Q4H PRN PRN Reason: Pain/Fever Last Admin: 08/10/20 01:40 Dose: 325 mg Documented by: Enoxaparin Sodium (Enoxaparin 30 Mg/0.3 Ml Syringe) 30 mg SUBCUT DAILY [facility] Last Admin: 08/12/20 09:21 Dose: 30 mg Documented by: Fat Emulsion Intravenous (Intralipid 20%) 200 mls @ 25 mls/hr IV MoWeFr@1800 [facility] Last Admin: 08/10/20 18:36 Dose: 25 mls/hr Documented by: Multivitamins/Minerals 10 ml/Chromium/Copper/Manganese/Zinc 1 ml/ Amino Acids/Electrolytes/Dextrose 1,011 mls @ 35 mls/hr IV ONETIME ONE Stop: 08/12/20 16:53 Last Infusion: 08/12/20 05:35 Dose: 55 mls/hr Documented by: Multivitamins/Minerals 10 ml/Chromium/Copper/Manganese/Zinc 1 ml/ Amino Acids/El ectrolytes/Dextrose 1,011 mls @ 55 mls/hr IV ONETIME ONE Stop: 08/13/20 05:52 Amino Acids/Electrolytes/Dextrose (Clinimix E 4.25/5) 1,000 mls @ 55 mls/hr IV ONETIME ONE Stop: 08/14/20 00:10 Sodium Chloride (Normal Saline) 1,000 mls @ 100 mls/hr IV ASDIRECTED [facility] Last Admin: 08/12/20 10:34 Dose: 100 mls/hr Documented by: Potassium Chloride 10 meq/ (Premix) 100 mls @ 100 mls/hr IV ONETIME ONE Stop: 08/12/20 11:59 Insulin Human Lispro (Insulin Lispro 100 Unit/Ml) 0 unit SUBCUT 0000,0600 ,1200,1800 [facility]; Protocol Last Admin: 08/12/20 05:43 Dose: Not Given Documented by: Levothyroxine Sodium (Levothyroxine 50 Mcg Tab) 50 mcg PO ACBREAKFAST [facility] Last Admin: 08/12/20 05:43 Dose: 50 mcg Documented by: Ondansetron HCl (Ondansetron 4 Mg/2 Ml Sdv) 4 mg IV Q4H PRN PRN Reason: Nausea/Vomiting Last Admin: 08/07/20 18:32 Dose: 4 mg Documented by: Pantoprazole Sodium (Pantoprazole 40 Mg Vial) 40 mg IVPUSH Q12H [facility] Last Admin: 08/12/20 09:21 Dose: 40 mg Documented by: Discontinued Medications Acetaminophen (Tylenol) 650 mg PO Q4H PRN PRN Reason: Pain (Mild 1-3)/fever Sodium Chloride (Normal Saline) 1,000 mls @ 999 mls/hr IV ONETIME ONE Stop: 08/06/20 07:57 Last Admin: 08/06/20 07:21 Dose: 999 mls/hr Documented by: Dextrose/Sodium Chloride (Dextrose 5%-1/2 Ns) 1,000 mls @ 75 mls/hr IV ASDIRECTED [facility] Last Admin: 08/06/20 11:58 Dose: 75 mls/hr Documented by: Potassium Chloride/Dextrose/Sod Cl (D5 1/2 Ns W/ 20 Meq/L Kcl) 1,000 mls @ 75 mls/hr IV ASDIRECTED [facility] Last Admin: 08/06/20 23:51 Dose: 75 mls/hr Documented by: Potassium Chloride 10 meq/ (Premix) 100 mls @ 100 mls/hr IV Q1H [facility] Stop: 08/07/20 12:59 Last Admin: 08/07/20 12:54 Dose: 100 mls/hr Documented by: Magnesium Sulfate 4 gm/ Premix 50 mls @ 12.5 mls/hr IV ONETIME ONE Stop: 08/07/20 16:59 Last Admin: 08/07/20 14:14 Dose: 12.5 mls/hr Documented by: Dextrose/Water (Dextrose 5% In Water) 1,000 mls @ 100 mls/hr IV ASDIRECTED [facility] Last Admin: 08/10/20 16:06 Dose: 100 mls/hr Documented by: Sodium Chloride (Normal Saline) 500 mls @ 999 mls/hr IV ONETIME ONE Stop: 08/07/20 22:44 Last Admin: 08/07/20 22:30 Dose: 999 mls/hr Documented by: Sodium Chloride (Normal Saline) Confirm Administered Dose 1,000 mls @ as directed .ROUTE .STK-MED ONE Stop: 08/07/20 22:24 Last Admin: 08/08/20 05:39 Dose: Not Given Documented by: Sodium Chloride (Normal Saline) 500 mls @ 999 mls/hr IV .BOLUS ONE Stop: 08/08/20 18:55 Last Admin: 08/08/20 18:40 Dose: 999 mls/hr Documented by: Albumin Human (Flexbumin 25%) 12.5 gm in 50 mls @ 100 mls/hr IV ONETIME ONE Stop: 08/08/20 19:44 Last Admin: 08/08/20 21:20 Dose: 100 mls/hr Documented by: Sodium Chloride (Normal Saline) 500 mls @ 999 mls/hr IV .BOLUS ONE Stop: 08/09/20 00:14 Last Admin: 08/09/20 00:04 Dose: 999 mls/hr Documented by: Multivitamins/Minerals 10 ml/Chromium/Copper/Manganese/Zinc 1 ml/ Amino Acids/Electrolytes/Dextrose 1,011 mls @ 25 mls/hr IV ONETIME ONE Stop: 08/12/20 10:26 Last Admin: 08/10/20 18:06 Dose: 25 mls/hr Documented by: Potassium Chloride 10 meq/ (Premix) 100 mls @ 100 mls/hr IV Q1H [facility] Stop: 08/11/20 10:59 Last Admin: 08/11/20 11:05 Dose: 100 mls/hr Documented by: Ppn Rate Change 0 mls @ 45 mls/hr .XX ONETIME ONE Stop: 08/12/20 05:59 Last Admin: 08/11/20 18:04 Dose: 45 mls/hr Documented by: Ppn Rate Change 1,000 mls @ 55 mls/hr .XX ONETIME ONE Stop: 08/13/20 00:10 Last Admin: 08/12/20 05:43 Dose: 55 mls/hr Documented by: Potassium Chloride 10 meq/ (Premix) 100 mls @ 100 mls/hr IV Q1H [facility] Stop: 08/12/20 12:29 Last Admin: 08/12/20 11:21 Dose: Not Given Documented by: Influenza Virus Vaccine (Pharmacy To Dose - Influenza Vaccine) 1 each IM ONETIME ONE Stop: 08/08/20 11:39 Influenza Virus Vaccine (Flu Vacc [id number](6mos Up)/Pf 60 Mcg/0.5 Ml Syringe) 60 mcg IM .ONCE ONE Stop: 08/08/20 12:31 Insulin Human Lispro (Insulin Lispro 100 Unit/Ml) 0 unit SUBCUT QIDACANDBED [facility]; Protocol Last Admin: 08/12/20 04:59 Dose: Not Given Documented by: Levothyroxine 50 Mcg (Ptom) 50 mcg PO ACBREAKFAST [facility] Last Admin: 08/08/20 05:40 Dose: Not Given Documented by: - Exam Quality Assessment: No: Supplemental Oxygen General: Alert HEENT: Pupils Equal, Mucous Membr. Moist/[place] Neck: Supple Lungs: Clear to Auscultation Cardiovascular: Regular Rate, Regular Rhythm GI/Abdominal Exam: Normal Bowel Sounds, Soft, Non-Tender, No Organomegaly, No Distention, No Abnormal Bruit Extremities: Normal Inspection, Normal Range of Motion, Non-Tender, No Pedal Edema, Normal Capillary Refill Skin: Warm, Dry, Intact Psy/Mental Status: Alert, Normal Affect, Normal Mood - Patient Data Lab Results Last 24 hrs: Laboratory Results - last 24 hr 08/11/20 08/11/20 08/12/20 Range/Units 12:13 18:02 00:46 WBC (3.98-10.04) K/mm3 RBC (3.98-5.22) M/mm3 Hgb (11.2-15.7) gm/dl Hct (34.1-44.9) % MCV (79.4-94.8) fl MCH (25.6-32.2) pg MCHC (32.2-35.5) g/dl RDW Std Deviation (36.4-46.3) fL Plt Count (182-369) K/mm3 MPV (9.4-12.3) fl Neut % (Auto) (34.0-71.1) % Lymph % (Auto) (19.3-51.7) % Dane % (Auto) (4.7-12.5) % Eos % (Auto) (0.7-5.8) Baso % (Auto) (0.1-1.2) % Neut # (Auto) (1.56-6.13) K/mm3 Lymph # (Auto) (1.18-3.74) K/mm3 Dane # (Auto) (0.24-0.36) K/mm3 Eos # (Auto) (0.04-0.36) K/mm3 Baso # (Auto) (0.01-0.08) K/mm3 Manual Slide Review Sodium (136-145) mEq/L Potassium (3.5-5.1) mEq/L Chloride (98-107) mEq/L Carbon Dioxide (21-32) mEq/L Anion Gap (5-15) BUN (7-18) mg/dL Creatinine (0.55-1.02) mg/dL Est Cr Clr Drug Dosing mL/min Estimated GFR (MDRD) (>60) mL/min BUN/Creatinine Ratio (14-18) Glucose (74-106) mg/dL POC Glucose 99 122 H 125 H (70-105) mg/dL Hemoglobin A1c ( - 5.6) % Calcium (8.5-10.1) mg/dL Magnesium (1.8-2.4) mg/dl C-Reactive Protein (<1.0) mg/dL 08/12/20 08/12/20 08/12/20 Range/Units 04:41 06:06 06:06 WBC 5.08 (3.98-10.04) K/mm3 RBC 4.09 (3.98-5.22) M/mm3 Hgb 12.8 (11.2-15.7) gm/dl Hct 39.1 (34.1-44.9) % MCV 95.6 H (79.4-94.8) fl MCH 31.3 (25.6-32.2) pg MCHC 32.7 (32.2-35.5) g/dl RDW Std Deviation 47.9 H (36.4-46.3) fL Plt Count 201 (182-369) K/mm3 MPV 11.3 (9.4-12.3) fl Neut % (Auto) 36.4 (34.0-71.1) % Lymph % (Auto) 45.9 (19.3-51.7) % Dane % (Auto) 11.2 (4.7-12.5) % Eos % (Auto) 1.4 (0.7-5.8) Baso % (Auto) 1.2 (0.1-1.2) % Neut # (Auto) 1.85 (1.56-6.13) K/mm3 Lymph # (Auto) 2.33 (1.18-3.74) K/mm3 Dane # (Auto) 0.57 H (0.24-0.36) K/mm3 Eos # (Auto) 0.07 (0.04-0.36) K/mm3 Baso # (Auto) 0.06 (0.01-0.08) K/mm3 Manual Slide Review Normal smear Sodium 145 (136-145) mEq/L Potassium 3.4 L (3.5-5.1) mEq/L Chloride 108 H (98-107) mEq/L Carbon Dioxide 30 (21-32) mEq/L Anion Gap 10.4 (5-15) BUN 17 (7-18) mg/dL Creatinine 1.0 (0.55-1.02) mg/dL Est Cr Clr Drug Dosing 52.22 mL/min Estimated GFR (MDRD) > 60 (>60) mL/min BUN/Creatinine Ratio 17.0 (14-18) Glucose 83 (74-106) mg/dL POC Glucose 104 (70-105) mg/dL Hemoglobin A1c ( - 5.6) % Calcium 8.7 (8.5-10.1) mg/dL Magnesium 2.1 (1.8-2.4) mg/dl C-Reactive Protein 0.8 (<1.0) mg/dL 08/12/20 Range/Units 06:06 WBC (3.98-10.04) K/mm3 RBC (3.98-5.22) M/mm3 Hgb (11.2-15.7) gm/dl Hct (34.1-44.9) % MCV (79.4-94.8) fl MCH (25.6-32.2) pg MCHC (32.2-35.5) g/dl RDW Std Deviation (36.4-46.3) fL Plt Count (182-369) K/mm3 MPV (9.4-12.3) fl Neut % (Auto) (34.0-71.1) % Lymph % (Auto) (19.3-51.7) % Dane % (Auto) (4.7-12.5) % Eos % (Auto) (0.7-5.8) Baso % (Auto) (0.1-1.2) % Neut # (Auto) (1.56-6.13) K/mm3 Lymph # (Auto) (1.18-3.74) K/mm3 Dane # (Auto) (0.24-0.36) K/mm3 Eos # (Auto) (0.04-0.36) K/mm3 Baso # (Auto) (0.01-0.08) K/mm3 Manual Slide Review Sodium (136-145) mEq/L Potassium (3.5-5.1) mEq/L Chloride (98-107) mEq/L Carbon Dioxide (21-32) mEq/L Anion Gap (5-15) BUN (7-18) mg/dL Creatinine (0.55-1.02) mg/dL Est Cr Clr Drug Dosing mL/min Estimated GFR (MDRD) (>60) mL/min BUN/Creatinine Ratio (14-18) Glucose (74-106) mg/dL POC Glucose (70-105) mg/dL Hemoglobin A1c 5.4 ( - 5.6) % Calcium (8.5-10.1) mg/dL Magnesium (1.8-2.4) mg/dl C-Reactive Protein (<1.0) mg/dL Result Diagrams: 08/12/20 06:06 08/12/20 06:06 Sepsis Event Note - Evaluation Sepsis Screening Result: No Definite Risk - Focused Exam Vital Signs: Vital Signs Temp Pulse Resp BP BP Pulse Ox 08/12/20 09:25 98.2 F 79 14 85/59 L 100 08/12/20 05:40 98.2 F 70 12 102/54 L 100 - Problem List & Annotations (1) Anorexia SNOMED Code(s): 55337192 Code(s): R63.0 - ANOREXIA Status: Acute Current Visit: Yes (2) Esophagitis SNOMED Code(s): 90195808 Code(s): K20.90 - ESOPHAGITIS, UNSPECIFIED WITHOUT BLEEDING Status: Acute Current Visit: Yes (3) Failure to thrive SNOMED Code(s): 01001967 Code(s): WCX8011 - Status: Acute Current Visit: Yes (4) Hypotension SNOMED Code(s): 56994862 Code(s): I95.9 - HYPOTENSION, UNSPECIFIED Status: Acute Current Visit: Yes (5) COVID-19 SNOMED Code(s): 661079854 Code(s): U07.1 - COVID-19 Status: Acute Current Visit: No - Problem List Review Problem List Initiated/Reviewed/Updated: Yes - My Orders Last 24 Hours: My Active Orders 08/12/20 10:30 Sodium Chloride 0.9% [Normal Saline] 1,000 ml IV ASDIRECTED 08/12/20 11:00 Potassium Chloride [KCl in Water 10 MEQ/100 ML] 10 meq Premix Bag 1 bag IV ONETIME 08/13/20 07:30 Echo Comp wo Cont [US] Routine - Plan Plan:: Plan:: 08/06/2020 Assessment 30-year-old female with Down syndrome has had a 15 pound weight loss over the l ast year when she was admitted for similar episode. Last year patient had a CT of the abdomen, EGD, colonoscopy, and was found to have erosive gastritis. Patient was also found to be self inducing vomiting by sticking her finger down her throat. When asked why she was doing that she states that she was anxious and it made her feel better. She was seen by psychiatry at that time. 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 Failure to thrive Down syndrome Jailene's hypothyroidism Hypotension * Received bamlamivimab, Solu-Medrol, Pepcid, epinephrine, diphenhydramine and discharged home 3 days ago for COVID-19 infection * Cell[employer]ane [employer] out of [facility] in [place], [place] * 15 pound weight loss from last hospitalization in August 2019 * No longer on duloxetine * Currently on omeprazole 10 mg liquid daily but has not been taking it for the last for 5 days * Patient may need PEG tube placement secondary to chronic anorexia and weight loss Plan * Refer for observation * Protonix 40 mg IV every 12 hours * D5 half-normal saline at 75 mL an hour * Nutrition consult * PT OT consult * Respiratory isolation * Considered surgical consult for PEG placement if patient does not increase oral intake * Patient will likely need long-term nutritional support since she developed a phobia of swallowing. She will likely pull the NG tube out and it does not encourage her to take orally. * CODE STATUS: Full code * VTE prophylaxis with Lovenox 08/07/2020 Patient did not tolerate any oral intake yesterday. After discussion with her mother she would like to progress with feeding tube placement. Dietary recommends a J-tube secondary to her severe reflux. Dr. Harding and surgery will be consulted. We will request old records in regards to her gastrointestinal studies. These include EGD, colonoscopy, CT scan, and notes from her public health program manager at [facility]. Patient did have some hypernatremia today so her fluids will be switched to D5 W with 20 mEq of KCl. She will also get 40 mEq of KCl IV throughout today. She will continue on respiratory isolation for her COVID-19 infection. Patient continues to be asymptomatic in regards to respiratory symptoms of COVID-19. Continue daily weights. Continue Protonix 40 mg IV every 12 hours. Patient refused her levothyroxine this morning. 08/08/2020 Patient had another day of very poor oral intake. She also had hypotensive episode last night even though she has been getting maintenance fluids. Patient has a history of reflux with erosive esophagitis. She also has history of bulimia last year. There is great concern that she will need a feeding tube placed distally to the stomach secondary to her gagging and retching every time she has anything on her stomach. Unfortunately, Dr. Harding was tied up yesterday with emergency surgeries all day and was unable to see her yesterday. He plans on seeing her today. Electrolytes today are back to normal, but we will continue to have to follow those with her poor oral intake. Discharge will likely be next week and may need to be to a prison facility. Mother is unsure if she will be able to take care of her at home. 08/09/20 GJ tube rescheduled, it will be placed on 08/10/20; the equipment had to be ordered and will arrive from [place]. Plan: Discussed with Dr. Harding, planned G Tube. Continue IV fluids and encourage oral intake. Continue respiratory isolation for COVID-19. 08/10/20 Attempted to transfer patient to [facility], this was declined d/t COVID + status. Discussed with patient's mom the possibility of TPN/PPN. Have also ordered a a PICC line. The Dietary consult has been expanded. 08/11/20 NEW GAME PLAN Patient's mom and Gen Surg provider will proceed with GJ tube, next wee PPN, additional labs, etc per protocol Gen SURG re: GJ tube, TBA the week of 08/13/20 2D echo re: ASD/VSD (color doppler) [facility] EMR request re: GI/Gen Surg (feeding tube); ACHD (ASD/VSD) LOS>>96 hours d/t treatment needs, lack of available equipment and request for transfer. Please see comment provided yesterday. 08/12/2020 Patient has had difficulty with the IV today. It appears the IV potassium caused burning and discomfort. Even after stopping the IV potassium patient continued to appear irritated by grabbing at the IV and her arm. Patient's potassium was only 3.4 and fortunately we were able to get approximately 15 mEq in before we had to stop it due to discomfort. Tomorrow we will get echocardiogram and hopefully planned surgery early this week. Continue PPN for now.
--- NOTE | 2020-08-12 13:01 | PCM.SN.2 ---
- Free Text/Narrative Note: Anesthesia Note: Start: 1230 Stop: 1300 Iv start times one attempt to left AC. 20ml's of normal saline flushed through, good blood return noted. Coban placed over sterile dressing to protect site. Augustina PEPPER
[2020-08-13] MEDS ORDERED: AA 4.25%/D5W/Calcium/Lytes 1,000 ML IV ONE (06:00)
[2020-08-13] MEDS: Levothyroxine 50 MCG Tab PO SCH (06:16)
[2020-08-13] MEDS: Enoxaparin 30 MG/0.3 ML Syringe SUBCUT SCH (08:43)
[2020-08-13] MEDS: Acetaminophen 325 MG/10.15 ML ML PO PRN (08:49)
[2020-08-13] MEDS ORDERED: MANG IV ONE ×3 (10:00)
[2020-08-13] MEDS ORDERED: COPPER IV ONE ×3 (10:00)
[2020-08-13] MEDS ORDERED: MVI IV ONE ×3 (10:00)
[2020-08-13] MEDS ORDERED: [UNRECOGNIZED DRUG - OTHER] IV ONE ×3 (10:00)
[2020-08-13] MEDS ORDERED: ZINC IV ONE ×3 (10:00)
[2020-08-13] MEDS ORDERED: VITAMIN K IV ONE ×3 (10:00)
[2020-08-13] MEDS ORDERED: CHROMIUM IV ONE ×3 (10:00)
[2020-08-13] MEDS: Pantoprazole 40 MG Vial IVPUSH SCH (10:09)
--- NOTE | 2020-08-13 14:29 | PCM.PN ---
- General Info Date of Service: 08/13/20 Admission Dx/Problem (Free Text): Admission Diagnosis/Problem Admission Diagnosis/Problem Failure to thrive Subjective Update: Patient did better yesterday. She had a full dinner and did have some vomiting but no solid food. Appetite is improving and patient may not need enteral feedings with the GJ tube at this time. Functional Status: Reports: Other (Unable to give a full review of systems) - Patient Data Vitals - Most Recent: Last Vital Signs Temp 98.1 F 08/13/20 10:03 Pulse 59 L 08/13/20 10:03 Resp 14 08/13/20 10:03 BP 97/61 08/13/20 10:03 Pulse Ox 100 08/13/20 10:03 Orthostatic Blood Pressure [ 80/60 Standing] Orthostatic Blood Pressure [ 86/69 Supine] Weight - Most Recent: 86 lb 12.8 oz I&O - Last 24 Hours: Intake & Output 08/12/20 08/13/20 08/13/20 22:59 06:59 14:59 Intake Total 387 1200 Output Total 600 Balance 387 600 Lab Results Last 24 Hours: Laboratory Results - last 24 hr 08/12/20 08/12/20 08/13/20 Range/Units 18:01 21:00 04:45 WBC (3.98-10.04) K/mm3 RBC (3.98-5.22) M/mm3 Hgb (11.2-15.7) gm/dl Hct (34.1-44.9) % MCV (79.4-94.8) fl MCH (25.6-32.2) pg MCHC (32.2-35.5) g/dl RDW Std Deviation (36.4-46.3) fL Plt Count (182-369) K/mm3 MPV (9.4-12.3) fl Neut % (Auto) (34.0-71.1) % Lymph % (Auto) (19.3-51.7) % [place] % (Auto) (4.7-12.5) % Eos % (Auto) (0.7-5.8) Baso % (Auto) (0.1-1.2) % Neut # (Auto) (1.56-6.13) K/mm3 Lymph # (Auto) (1.18-3.74) K/mm3 [place] # (Auto) (0.24-0.36) K/mm3 Eos # (Auto) (0.04-0.36) K/mm3 Baso # (Auto) (0.01-0.08) K/mm3 Manual Slide Review Sodium (136-145) mEq/L Potassium (3.5-5.1) mEq/L Chloride (98-107) mEq/L Carbon Dioxide (21-32) mEq/L Anion Gap (5-15) BUN (7-18) mg/dL Creatinine (0.55-1.02) mg/dL Est Cr Clr Drug Dosing mL/min Estimated GFR (MDRD) (>60) mL/min BUN/Creatinine Ratio (14-18) Glucose (74-106) mg/dL POC Glucose 86 83 (70-105) mg/dL Calcium (8.5-10.1) mg/dL Magnesium 2.2 (1.8-2.4) mg/dl Total Bilirubin (0.2-1.0) mg/dL AST (15-37) U/L ALT (14-59) U/L Alkaline Phosphatase (46-116) U/L Total Protein (6.4-8.2) g/dl Albumin (3.4-5.0) g/dl Globulin gm/dL Albumin/Globulin Ratio (1-2) 08/13/20 08/13/20 08/13/20 Range/Units 04:45 04:45 06:18 WBC 5.77 (3.98-10.04) K/mm3 RBC 3.78 L (3.98-5.22) M/mm3 Hgb 11.7 (11.2-15.7) gm/dl Hct 36.1 (34.1-44.9) % MCV 95.5 H (79.4-94.8) fl MCH 31.0 (25.6-32.2) pg MCHC 32.4 (32.2-35.5) g/dl RDW Std Deviation 47.3 H (36.4-46.3) fL Plt Count 212 (182-369) K/mm3 MPV 11.0 (9.4-12.3) fl Neut % (Auto) 48.7 (34.0-71.1) % Lymph % (Auto) 36.6 (19.3-51.7) % [place] % (Auto) 10.7 (4.7-12.5) % Eos % (Auto) 1.0 (0.7-5.8) Baso % (Auto) 0.9 (0.1-1.2) % Neut # (Auto) 2.81 (1.56-6.13) K/mm3 Lymph # (Auto) 2.11 (1.18-3.74) K/mm3 [place] # (Auto) 0.62 H (0.24-0.36) K/mm3 Eos # (Auto) 0.06 (0.04-0.36) K/mm3 Baso # (Auto) 0.05 (0.01-0.08) K/mm3 Manual Slide Review Normal smear Sodium 145 (136-145) mEq/L Potassium 4.0 (3.5-5.1) mEq/L Chloride 109 H (98-107) mEq/L Carbon Dioxide 30 (21-32) mEq/L Anion Gap 10.0 (5-15) BUN 22 H (7-18) mg/dL Creatinine 1.0 (0.55-1.02) mg/dL Est Cr Clr Drug Dosing 52.22 mL/min Estimated GFR (MDRD) > 60 (>60) mL/min BUN/Creatinine Ratio 22.0 H (14-18) Glucose 91 (74-106) mg/dL POC Glucose 100 (70-105) mg/dL Calcium 8.7 (8.5-10.1) mg/dL Magnesium (1.8-2.4) mg/dl Total Bilirubin 0.3 (0.2-1.0) mg/dL AST 19 (15-37) U/L ALT 21 (14-59) U/L Alkaline Phosphatase 36 L (46-116) U/L Total Protein 6.3 L (6.4-8.2) g/dl Albumin 2.6 L (3.4-5.0) g/dl Globulin 3.7 gm/dL Albumin/Globulin Ratio 0.7 L (1-2) Med Orders - Current: Current Medications Acetaminophen (Acetaminophen 325 Mg/10.15 Ml Ml) 650 mg PO Q4H PRN PRN Reason: Pain/Fever Last Admin: 08/13/20 08:49 Dose: 650 mg Documented by: Enoxaparin Sodium (Enoxaparin 30 Mg/0.3 Ml Syringe) 30 mg SUBCUT DAILY [facility] Last Admin: 08/13/20 08:43 Dose: 30 mg Documented by: Multivitamins/Minerals 10 ml/Chromium/Copper/Manganese/Zinc 1 ml/ Amino Acids/Electrolytes/Dextrose 1,011 mls @ 55 mls/hr IV ONETIME ONE Stop: 08/14/20 04:22 Last Admin: 08/13/20 11:59 Dose: 55 mls/hr Documented by: Fat Emulsion Intravenous (Intralipid 20%) 200 mls @ 25 mls/hr IV MoWeFr@1500 LISA Amino Acids/Electrolytes/Dextrose (Clinimix E 4.25/5) 1,000 mls @ 55 mls/hr IV ONETIME ONE Stop: 08/15/20 00:40 Insulin Human Lispro (Insulin Lispro 100 Unit/Ml) 0 unit SUBCUT 0000,0600,1200,1800 LISA; Protocol Last Admin: 08/13/20 12:38 Dose: Not Given Documented by: Levothyroxine Sodium (Levothyroxine 50 Mcg Tab) 50 mcg PO ACBREAKFAST [facility] Last Admin: 08/13/20 06:16 Dose: 50 mcg Documented by: Ondansetron HCl (Ondansetron 4 Mg/2 Ml Sdv) 4 mg IV Q4H PRN PRN Reason: Nausea/Vomiting Last Admin: 08/07/20 18:32 Dose: 4 mg Documented by: Pantoprazole Sodium (Pantoprazole 40 Mg Vial) 40 mg IVPUSH Q12H [facility] Last Admin: 08/13/20 10:09 Dose: 40 mg Documented by: Discontinued Medications Acetaminophen (Tylenol) 650 mg PO Q4H PRN PRN Reason: Pain (Mild 1-3)/fever Sodium Chloride (Normal Saline) 1,000 mls @ 999 mls/hr IV ONETIME ONE Stop: 08/06/20 07:57 Last Admin: 08/06/20 07:21 Dose: 999 mls/hr Documented by: Dextrose/Sodium Chloride (Dextrose 5%-1/2 Ns) 1,000 mls @ 75 mls/hr IV ASDIRECTED [facility] Last Admin: 08/06/20 11:58 Dose: 75 mls/hr Documented by: Potassium Chloride/Dextrose/Sod Cl (D5 1/2 Ns W/ 20 Meq/L Kcl) 1,000 mls @ 75 mls/hr IV ASDIRECTED [facility] Last Admin: 08/06/20 23:51 Dose: 75 mls/hr Documented by: Potassium Chloride 10 meq/ (Premix) 100 mls @ 100 mls/hr IV Q1H [facility] Stop: 08/07/20 12:59 Last Admin: 08/07/20 12:54 Dose: 100 mls/hr Documented by: Magnesium Sulfate 4 gm/ Premix 50 mls @ 12.5 mls/hr IV ONETIME ONE Stop: 08/07/20 16:59 Last Admin: 08/07/20 14:14 Dose: 12.5 mls/hr Documented by: Dextrose/Water (Dextrose 5% In Water) 1,000 mls @ 100 mls/hr IV ASDIRECTED [facility] Last Admin: 08/10/20 16:06 Dose: 100 mls/hr Documented by: Sodium Chloride (Normal Saline) 500 mls @ 999 mls/hr IV ONETIME ONE Stop: 08/07/20 22:44 Last Admin: 08/07/20 22:30 Dose: 999 mls/hr Documented by: Sodium Chloride (Normal Saline) Confirm Administered Dose 1,000 mls @ as directed .ROUTE .STK-MED ONE Stop: 08/07/20 22:24 Last Admin: 08/08/20 05:39 Dose: Not Given Documented by: Sodium Chloride (Normal Saline) 500 mls @ 999 mls/hr IV .BOLUS ONE Stop: 08/08/20 18:55 Last Admin: 08/08/20 18:40 Dose: 999 mls/hr Documented by: Albumin Human (Flexbumin 25%) 12.5 gm in 50 mls @ 100 mls/hr IV ONETIME ONE Stop: 08/08/20 19:44 Last Admin: 08/08/20 21:20 Dose: 100 mls/hr Documented by: Sodium Chloride (Normal Saline) 500 mls @ 999 mls/hr IV .BOLUS ONE Stop: 08/09/20 00:14 Last Admin: 08/09/20 00:04 Dose: 999 mls/hr Documented by: Multivitamins/Minerals 10 ml/Chromium/Copper/Manganese/Zinc 1 ml/ Amino Acids/Electrolytes/Dextrose 1,011 mls @ 25 mls/hr IV ONETIME ONE Stop: 08/12/20 10:26 Last Admin: 08/10/20 18:06 Dose: 25 mls/hr Documented by: Fat Emulsion Intravenous (Intralipid 20%) 200 mls @ 25 mls/hr IV MoWeFr@1800 LISA Last Admin: 08/10/20 18:36 Dose: 25 mls/hr Documented by: Potassium Chloride 10 meq/ (Premix) 100 mls @ 100 mls/hr IV Q1H [facility] Stop: 08/11/20 10:59 Last Admin: 08/11/20 11:05 Dose: 100 mls/hr Documented by: Multivitamins/Minerals 10 ml/Chromium/Copper/Manganese/Zinc 1 ml/ Amino Acids/Electrolytes/Dextrose 1,011 mls @ 35 mls/hr IV ONETIME ONE Stop: 08/12/20 16:53 Last Infusion: 08/12/20 05:35 Dose: 55 mls/hr Documented by: Ppn Rate Change 0 mls @ 45 mls/hr .XX ONETIME ONE Stop: 08/12/20 05:59 Last Admin: 08/11/20 18:04 Dose: 45 mls/hr Documented by: Ppn Rate Change 1,000 mls @ 55 mls/hr .XX ONETIME ONE Stop: 08/13/20 00:10 Last Admin: 08/12/20 05:43 Dose: 55 mls/hr Documented by: Potassium Chloride 10 meq/ (Premix) 100 mls @ 100 mls/hr IV Q1H [facility] Stop: 08/12/20 12:29 Last Admin: 08/12/20 11:21 Dose: Not Given Documented by: Multivitamins/Minerals 10 ml/Chromium/Copper/Manganese/Zinc 1 ml/ Amino Acids/Electrolytes/Dextrose 1,011 mls @ 55 mls/hr IV ONETIME ONE Stop: 08/13/20 05:52 Last Admin: 08/12/20 15:47 Dose: 55 mls/hr Documented by: Amino Acids/Electrolytes/Dextrose (Clinimix E 4.25/5) 1,000 mls @ 55 mls/hr IV ONETIME ONE Stop: 08/14/20 00:10 Sodium Chloride (Normal Saline) 1,000 mls @ 100 mls/hr IV ASDIRECTED [facility] Last Admin: 08/12/20 10:34 Dose: 100 mls/hr Documented by: Potassium Chloride 10 meq/ (Premix) 100 mls @ 100 mls/hr IV ONETIME ONE Stop: 08/12/20 11:59 Last Admin: 08/12/20 13:16 Dose: 100 mls/hr Documented by: Influenza Virus Vaccine (Pharmacy To Dose - Influenza Vaccine) 1 each IM ONETIME ONE Stop: 08/08/20 11:39 Influenza Virus Vaccine (Flu Vacc [id number](6mos Up)/Pf 60 Mcg/0.5 Ml Syringe) 60 mcg IM .ONCE ONE Stop: 08/08/20 12:31 Insulin Human Lispro (Insulin Lispro 100 Unit/Ml) 0 unit SUBCUT QIDACANDBED [facility]; Protocol Last Admin: 08/12/20 04:59 Dose: Not Given Documented by: Levothyroxine 50 Mcg (Ptom) 50 mcg PO ACBREAKFAST LISA Last Admin: 08/08/20 05:40 Dose: Not Given Documented by: - Exam Quality Assessment: No: Supplemental Oxygen General: Alert HEENT: Pupils Equal, Mucous Membr. Moist/[place]: Supple Lungs: Clear to Auscultation, Normal Respiratory Effort Cardiovascular: Regular Rate, Regular Rhythm GI/Abdominal Exam: Normal Bowel Sounds, Soft, Non-Tender, No Organomegaly, No Distention, No Abnormal Bruit Extremities: Normal Inspection, Normal Range of Motion, Non-Tender, No Pedal Edema, Normal Capillary Refill Skin: Warm, Dry, Intact Psy/Mental Status: Alert, Normal Affect, Normal Mood - Patient Data Lab Results Last 24 hrs: Laboratory Results - last 24 hr 08/12/20 08/12/20 08/13/20 Range/Units 18:01 21:00 04:45 WBC (3.98-10.04) K/mm3 RBC (3.98-5.22) M/mm3 Hgb (11.2-15.7) gm/dl Hct (34.1-44.9) % MCV (79.4-94.8) fl MCH (25.6-32.2) pg MCHC (32.2-35.5) g/dl RDW Std Deviation (36.4-46.3) fL Plt Count (182-369) K/mm3 MPV (9.4-12.3) fl Neut % (Auto) (34.0-71.1) % Lymph % (Auto) (19.3-51.7) % [place] % (Auto) (4.7-12.5) % Eos % (Auto) (0.7-5.8) Baso % (Auto) (0.1-1.2) % Neut # (Auto) (1.56-6.13) K/mm3 Lymph # (Auto) (1.18-3.74) K/mm3 [place] # (Auto) (0.24-0.36) K/mm3 Eos # (Auto) (0.04-0.36) K/mm3 Baso # (Auto) (0.01-0.08) K/mm3 Manual Slide Review Sodium (136-145) mEq/L Potassium (3.5-5.1) mEq/L Chloride (98-107) mEq/L Carbon Dioxide (21-32) mEq/L Anion Gap (5-15) BUN (7-18) mg/dL Creatinine (0.55-1.02) mg/dL Est Cr Clr Drug Dosing mL/min Estimated GFR (MDRD) (>60) mL/min BUN/Creatinine Ratio (14-18) Glucose (74-106) mg/dL POC Glucose 86 83 (70-105) mg/dL Calcium (8.5-10.1) mg/dL Magnesium 2.2 (1.8-2.4) mg/dl Total Bilirubin (0.2-1.0) mg/dL AST (15-37) U/L ALT (14-59) U/L Alkaline Phosphatase (46-116) U/L Total Protein (6.4-8.2) g/dl Albumin (3.4-5.0) g/dl Globulin gm/dL Albumin/Globulin Ratio (1-2) 08/13/20 08/13/20 08/13/20 Range/Units 04:45 04:45 06:18 WBC 5.77 (3.98-10.04) K/mm3 RBC 3.78 L (3.98-5.22) M/mm3 Hgb 11.7 (11.2-15.7) gm/dl Hct 36.1 (34.1-44.9) % MCV 95.5 H (79.4-94.8) fl MCH 31.0 (25.6-32.2) pg MCHC 32.4 (32.2-35.5) g/dl RDW Std Deviation 47.3 H (36.4-46.3) fL Plt Count 212 (182-369) K/mm3 MPV 11.0 (9.4-12.3) fl Neut % (Auto) 48.7 (34.0-71.1) % Lymph % (Auto) 36.6 (19.3-51.7) % [place] % (Auto) 10.7 (4.7-12.5) % Eos % (Auto) 1.0 (0.7-5.8) Baso % (Auto) 0.9 (0.1-1.2) % Neut # (Auto) 2.81 (1.56-6.13) K/mm3 Lymph # (Auto) 2.11 (1.18-3.74) K/mm3 [place] # (Auto) 0.62 H (0.24-0.36) K/mm3 Eos # (Auto) 0.06 (0.04-0.36) K/mm3 Baso # (Auto) 0.05 (0.01-0.08) K/mm3 Manual Slide Review Normal smear Sodium 145 (136-145) mEq/L Potassium 4.0 (3.5-5.1) mEq/L Chloride 109 H (98-107) mEq/L Carbon Dioxide 30 (21-32) mEq/L Anion Gap 10.0 (5-15) BUN 22 H (7-18) mg/dL Creatinine 1.0 (0.55-1.02) mg/dL Est Cr Clr Drug Dosing 52.22 mL/min Estimated GFR (MDRD) > 60 (>60) mL/min BUN/Creatinine Ratio 22.0 H (14-18) Glucose 91 (74-106) mg/dL POC Glucose 100 (70-105) mg/dL Calcium 8.7 (8.5-10.1) mg/dL Magnesium (1.8-2.4) mg/dl Total Bilirubin 0.3 (0.2-1.0) mg/dL AST 19 (15-37) U/L ALT 21 (14-59) U/L Alkaline Phosphatase 36 L (46-116) U/L Total Protein 6.3 L (6.4-8.2) g/dl Albumin 2.6 L (3.4-5.0) g/dl Globulin 3.7 gm/dL Albumin/Globulin Ratio 0.7 L (1-2) Result Diagrams: 08/13/20 04:45 08/13/20 04:45 Sepsis Event Note - Evaluation Sepsis Screening Result: No Definite Risk - Focused Exam Vital Signs: Vital Signs Temp Pulse Resp BP Pulse Ox 08/13/20 10:03 98.1 F 59 L 14 97/61 100 08/13/20 06:27 97.9 F 67 16 118/71 99 - Problem List & Annotations (1) Anorexia SNOMED Code(s): 00527943 Code(s): R63.0 - ANOREXIA Status: Acute Current Visit: Yes (2) Esophagitis SNOMED Code(s): 73525386 Code(s): K20.90 - ESOPHAGITIS, UNSPECIFIED WITHOUT BLEEDING Status: Acute Current Visit: Yes (3) Failure to thrive SNOMED Code(s): 59431941 Code(s): YVV5803 - Status: Acute Current Visit: Yes (4) Hypotension SNOMED Code(s): 24218889 Code(s): I95.9 - HYPOTENSION, UNSPECIFIED Status: Acute Current Visit: Yes (5) COVID-19 SNOMED Code(s): 418272253 Code(s): U07.1 - COVID-19 Status: Acute Current Visit: No - Problem List Review Problem List Initiated/Reviewed/Updated: Yes - My Orders Last 24 Hours: My Active Orders 08/14/20 05:11 CMP [COMPREHENSIVE METABOLIC PN,CMP] [CHEM] AM MAGNESIUM [CHEM] AM 08/15/20 05:11 CMP [COMPREHENSIVE METABOLIC PN,CMP] [CHEM] AM 08/16/20 05:11 CMP [COMPREHENSIVE METABOLIC PN,CMP] [CHEM] AM - Assessment Assessment:: - - Plan Plan:: Plan:: 08/06/2020 Assessment 30-year-old female with Down syndrome has had a 15 pound weight loss over the last year when she was admitted for similar episode. Last year patient had a CT of the abdomen, EGD, colonoscopy, and was found to have erosive gastritis. Patient was also found to be self inducing vomiting by sticking her finger down her throat. When asked why she was doing that she states that she was anxious and it made her feel better. She was seen by psychiatry at that time. 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[place], [place] * 15 pound weight loss from last hospitalization in August 2019 * No longer on duloxetine * Currently on omeprazole 10 mg liquid daily but has not been taking it for the last for 5 days * Patient may need PEG tube placement secondary to chronic anorexia and weight loss Plan * Refer for observation * Protonix 40 mg IV every 12 hours * D5 half-normal saline at 75 mL an hour * Nutrition consult * PT OT consult * Respiratory isolation * Considered surgical consult for PEG placement if patient does not increase oral intake * Patient will likely need long-term nutritional support since she developed a phobia of swallowing. She will likely pull the NG tube out and it does not encourage her to take orally. * CODE STATUS: Full code * VTE prophylaxis with Lovenox 08/07/2020 Patient did not tolerate any oral intake yesterday. After discussion with her mother she would like to progress with feeding tube placement. Dietary recommends a J-tube secondary to her severe reflux. Dr. Harding and surgery will be consulted. We will request old records in regards to her gastrointestinal studies. These include EGD, colonoscopy, CT scan, and notes from her ip litigation associate at [facility]. Patient did have some hypernatremia today so her fluids will be switched to D5 W with 20 mEq of KCl. She will also get 40 mEq of KCl IV throughout today. She will continue on respiratory isolation for her COVID-19 infection. Patient continues to be asymptomatic in regards to respiratory symptoms of COVID-19. Continue daily weights. Continue Protonix 40 mg IV every 12 hours. Patient refused her levothyroxine this morning. 08/08/2020 Patient had another day of very poor oral intake. She also had hypotensive episode last night even though she has been getting maintenance fluids. Patient has a history of reflux with erosive esophagitis. She also has history of bulimia last year. There is great concern that she will need a feeding tube placed distally to the stomach secondary to her gagging and retching every time she has anything on her stomach. Unfortunately, Dr. Harding was tied up yesterday with emergency surgeries all day and was unable to see her yesterday. He plans on seeing her today. Electrolytes today are back to normal, but we will continue to have to follow those with her poor oral intake. Discharge will likely be next week and may need to be to a shelter facility. Mother is unsure if she will be able to take care of her at home. 08/09/20 GJ tube rescheduled, it will be placed on 08/10/20; the equipment had to be ordered and will arrive from [place]. Plan: Discussed with Dr. Harding, planned G Tube. Continue IV fluids and encourage oral intake. Continue respiratory isolation for COVID-19. 08/10/20 Attempted to transfer patient to [facility], this was declined d/t COVID + status. Discussed with patient's mom the possibility of TPN/PPN. Have also ordered a a PICC line. The Dietary consult has been expanded. 08/11/20 NEW GAME PLAN Patient's mom and Gen Surg provider will proceed with GJ tube, next wee PPN, additional labs, etc per protocol Gen SURG re: GJ tube, TBA the week of 08/13/20 2D echo re: ASD/VSD (color doppler) [facility] EMR request re: GI/Gen Surg (feeding tube); [facility] (ASD/VSD) LOS>>96 hours d/t treatment needs, lack of available equipment and request for transfer. Please see comment provided yesterday. 08/12/2020 Patient has had difficulty with the IV today. It appears the IV potassium caused burning and discomfort. Even after stopping the IV potassium patient continued to appear irritated by grabbing at the IV and her arm. Patient's potassium was only 3.4 and fortunately we were able to get approximately 15 mEq in before we had to stop it due to discomfort. Tomorrow we will get echocardiogram and hopefully planned surgery early this week. Continue PPN for now. 08/13/2020 Patient continues to improve. She was able to tolerate more oral intake yesterday. Dietitian was in today to discuss matters. I also discussed the matters with Dr. Harding and surgery and if she continues to take well orally and able to keep down most of her food and we will not place a GJ tube at this time. She may still need a J-tube, but we cannot do that here. She will need to go to [facility] to have that placed. If patient continues to do well today with oral intake we will plan on discharging home tomorrow.
[2020-08-13] MEDS: OMEPRAZOLE 20 MG PO SCH (20:27)
[2020-08-14] MEDS: Levothyroxine 50 MCG Tab PO SCH (05:41)
[2020-08-14] MEDS ORDERED: AA 4.25%/D5W/Calcium/Lytes 1,000 ML IV ONE (06:30)
[2020-08-14 09:08] VITALS: BP 132/82; PULSE 65
[2020-08-14] MEDS: OMEPRAZOLE 20 MG PO SCH (09:14)
[2020-08-14] MEDS: Enoxaparin 30 MG/0.3 ML Syringe SUBCUT SCH (09:15)
--- NOTE | 2020-08-14 09:51 | PCM.DCSUM1 ---
Discharge Summary - Hospital Course HPI Initial Comments: 30-year-old female with history of Down syndrome, weight loss, severe GERD with esophagitis, and recently diagnosed with COVID-19 3 days ago. Patient had a decrease in her appetite and is afraid to eat because she is afraid to vomit. Patient has had a 14 to 15 pound weight loss since last year when she was admitted secondary to recurrent emesis. Patient was treated with liquid omeprazole for her erosive esophagitis. Mom states that she did have some i mprovement in her symptoms and got her weight up to 90 pounds, but since she started getting sick last week she has refused to eat or drink. She is also refused to take her omeprazole for last for 5 days. Patient fell yesterday when she got up to use the bathroom. In the emergency department she was found to have hypotension with a systolic blood pressure of 86, otherwise she was afebrile with saturations of 100%. She has no significant respiratory symptoms. Assessment 30-year-old female with Down syndrome has had a 15 pound weight loss over the last year when she was admitted for similar episode. Last year patient had a CT of the abdomen, EGD, colonoscopy, and was found to have erosive gastritis. Patient was also found to be self inducing vomiting by sticking her finger down her throat. When asked why she was doing that she states that she was anxious and it made her feel better. She was seen by psychiatry at that time. 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 Failure to thrive Down syndrome Jailene's hypothyroidism Hypotension * Received bamlamivimab, Solu-Medrol, Pepcid, epinephrine, diphenhydramine and discharged home 3 days ago for COVID-19 infection * [facility] out of [facility] in [place], [place] * 15 pound weight loss from last hospitalization in August 2019 * No longer on duloxetine * Currently on omeprazole 10 mg liquid daily but has not been taking it for the last for 5 days * Patient may need PEG tube placement secondary to chronic anorexia and weight loss Plan * Refer for observation * Protonix 40 mg IV every 12 hours * D5 half-normal saline at 75 mL an hour * Nutrition consult * PT OT consult * Respiratory isolation * Considered surgical consult for PEG placement if patient does not increase oral intake * Patient will likely need long-term nutritional support since she developed a phobia of swallowing. She will likely pull the NG tube out and it does not encourage her to take orally. * CODE STATUS: Full code * VTE prophylaxis with Lovenox - Mortality Measure Prognosis:: Good Diagnosis: Stroke: No - Discharge Data Discharge Date: 08/14/20 Discharge Disposition: Home, Self-Care 01 Condition: Good - Referral to Home Health Primary Care Physician: Tamiko Toledo MD - Discharge Diagnosis/Problem(s) (1) Anorexia SNOMED Code(s): 99021368 ICD Code: R63.0 - ANOREXIA Status: Acute (2) Esophagitis SNOMED Code(s): 24056021 ICD Code: K20.90 - ESOPHAGITIS, UNSPECIFIED WITHOUT BLEEDING Status: Acute (3) Failure to thrive SNOMED Code(s): 58267755 ICD Code: [id number] - Status: Acute (4) Hypotension SNOMED Code(s): 47330532 ICD Code: I95.9 - HYPOTENSION, UNSPECIFIED Status: Acute (5) COVID-19 SNOMED Code(s): 347645450 ICD Code: U07.1 - COVID-19 Status: Acute - Patient Summary/Data Consults: Consultations 08/06/20 09:52 Consult to Master Mechanic [CONS] Routine OT Evaluation and Treatment [CONS] Routine PT Evaluation and Treatment [CONS] Routine 08/07/20 09:27 Consult to Physician [CONS] Routine 08/10/20 14:22 Consult to Dietary [Consult to Master Mechanic] [CONS] Routine Hospital Course: Patient was admitted with plans on getting either a G-tube or a J-tube. It was decided that she would benefit most from a J-tube secondary to her esophagitis and recurrent vomiting. We are unable to place J-tube's in our facility so a GJ tube was planned instead. There was then some concern from anesthesia about patient's cardiac history so echocardiogram was ordered. Unfortunate that took another 4 days because of the weekend to obtain. Echocardiogram showed a left ventricular ejection fraction of 60 to 65%. Small membranous ventricular septal defect with [id number] shunting. Aortic valve is structurally normal and tricuspid. Mild mitral valve regurgitation. The MR jet is eccentric posteriorly directed. Cleft mitral valve present. Moderate tricuspid valve regurgitation. Patent ductus arteriosus. The right ventricular systolic pressure is severely elevated at 35.6 mmHg. Small ostium primum atrial septal defect with predominantly left to right shunting across the atrial septum. Peak VSD velocity of 3.5 m/s with a gradient of 55 mmHg. Small pericardial effusion. It was decided at this point that the patient was eating better on her own and she would not require a feeding tube at this time. Patient did very well over the next couple of days and was discharged eating orally. 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 Patient was also taken off of respiratory precautions for her Covid. Likely Covid was the cause of her anorexia and this worsened her overall condition. - Patient Instructions Diet: Usual Diet as Tolerated Notify Provider of: Nausea and/or Vomiting Other/Special Instructions: Please follow-up with your welding machine operator submerged arc in [place], primary care provider, and the [facility]. - Discharge Plan *PRESCRIPTION DRUG MONITORING PROGRAM REVIEWED*: Not Applicable *COPY OF PRESCRIPTION DRUG MONITORING REPORT IN PATIENT [place]: Not Applicable Home Medications: Home Meds Levothyroxine [Synthroid] 50 mcg PO ACBREAKFAST 08/03/20 [History] Omeprazole 10 ml PO BIDAC 08/03/20 [History] Levothyroxine [Synthroid] 50 mcg PO ACBREAKFAST tablet 08/14/20 [Rx] Patient Handouts: 10 Things You Can Do to Manage Your COVID-19 Symptoms at Home - CDC, Sepsis, Diagnosis, Adult, Coronavirus Information 08/15/19 Forms: ED Department Discharge Referrals: Tamiko Toledo MD [Primary Care Provider] - (You have a follow up apt. with Dr. Toledo on ThursdayAugust 21 at 300pm please check in at 2:45 p.m.) - Discharge Summary/Plan Comment DC Time >30 min.: Yes - General Info Date of Service: 08/14/20 Admission Dx/Problem (Free Text: Admission Diagnosis/Problem Admission Diagnosis/Problem Failure to thrive Subjective Update: Patient is feeling well this morning. Has continued to improve her diet over the last few days. Mom feels that she is ready for discharge. Functional Status: Reports: Pain Controlled, Other (Full review of systems is not available because of patient's Down syndrome) - Patient Data Vitals - Most Recent: Last Vital Signs Temp 98.4 F 08/14/20 09:00 Pulse 65 08/14/20 09:00 Resp 14 08/14/20 09:00 BP 132/82 08/14/20 09:00 Pulse Ox 100 08/14/20 09:00 Orthostatic Blood Pressure [ 80/60 Standing] Orthostatic Blood Pressure [ 86/69 Supine] Weight - Most Recent: 86 lb 6.4 oz I&O - Last 24 hours: Intake & Output 08/13/20 08/14/20 08/14/20 22:59 06:59 14:59 Intake Total 1333 1845 Output Total 1000 Balance 1333 845 Lab Results - Last 24 hrs: Laboratory Results - last 24 hr 08/13/20 08/13/20 08/13/20 Range/Units 04:45 11:41 18:01 WBC (3.98-10.04) K/mm3 RBC (3.98-5.22) M/mm3 Hgb (11.2-15.7) gm/dl Hct (34.1-44.9) % MCV (79.4-94.8) fl MCH (25.6-32.2) pg MCHC (32.2-35.5) g/dl RDW Std Deviation (36.4-46.3) fL Plt Count (182-369) K/mm3 MPV (9.4-12.3) fl Neut % (Auto) (34.0-71.1) % Lymph % (Auto) (19.3-51.7) % [place]ville % (Auto) (4.7-12.5) % Eos % (Auto) (0.7-5.8) Baso % (Auto) (0.1-1.2) % Neut # (Auto) (1.56-6.13) K/mm3 Lymph # (Auto) (1.18-3.74) K/mm3 [place] # (Auto) (0.24-0.36) K/mm3 Eos # (Auto) (0.04-0.36) K/mm3 Baso # (Auto) (0.01-0.08) K/mm3 Manual Slide Review Normal smear PT (9.7-12.0) SECONDS INR APTT (21.7-31.4) SECONDS Sodium (136-145) mEq/L Potassium (3.5-5.1) mEq/L Chloride (98-107) mEq/L Carbon Dioxide (21-32) mEq/L Anion Gap (5-15) BUN (7-18) mg/dL Creatinine (0.55-1.02) mg/dL Est Cr Clr Drug Dosing mL/min Estimated GFR (MDRD) (>60) mL/min BUN/Creatinine Ratio (14-18) Glucose (74-106) mg/dL POC Glucose 87 78 (70-105) mg/dL Calcium (8.5-10.1) mg/dL Magnesium (1.8-2.4) mg/dl Total Bilirubin (0.2-1.0) mg/dL AST (15-37) U/L ALT (14-59) U/L Alkaline Phosphatase (46-116) U/L Total Protein (6.4-8.2) g/dl Albumin (3.4-5.0) g/dl Globulin gm/dL Albumin/Globulin Ratio (1-2) 08/14/20 08/14/20 08/14/20 Range/Units 05:00 05:00 05:00 WBC 4.75 (3.98-10.04) K/mm3 RBC 3.80 L (3.98-5.22) M/mm3 Hgb 11.8 (11.2-15.7) gm/dl Hct 36.3 (34.1-44.9) % MCV 95.5 H (79.4-94.8) fl MCH 31.1 (25.6-32.2) pg MCHC 32.5 (32.2-35.5) g/dl RDW Std Deviation 47.7 H (36.4-46.3) fL Plt Count 212 (182-369) K/mm3 MPV 11.6 (9.4-12.3) fl Neut % (Auto) 43.1 (34.0-71.1) % Lymph % (Auto) 39.4 (19.3-51.7) % Granville % (Auto) 12.0 (4.7-12.5) % Eos % (Auto) 1.3 (0.7-5.8) Baso % (Auto) 2.1 H (0.1-1.2) % Neut # (Auto) 2.05 (1.56-6.13) K/mm3 Lymph # (Auto) 1.87 (1.18-3.74) K/mm3 [place]ville # (Auto) 0.57 H (0.24-0.36) K/mm3 Eos # (Auto) 0.06 (0.04-0.36) K/mm3 Baso # (Auto) 0.10 H (0.01-0.08) K/mm3 Manual Slide Review PT 11.3 (9.7-12.0) SECONDS INR 1.06 APTT 27.7 (21.7-31.4) SECONDS Sodium 146 H (136-145) mEq/L Potassium 4.1 (3.5-5.1) mEq/L Chloride 110 H (98-107) mEq/L Carbon Dioxide 30 (21-32) mEq/L Anion Gap 10.1 (5-15) BUN 23 H (7-18) mg/dL Creatinine 1.0 (0.55-1.02) mg/dL Est Cr Clr Drug Dosing 49.97 mL/min Estimated GFR (MDRD) > 60 (>60) mL/min BUN/Creatinine Ratio 23.0 H (14-18) Glucose 86 (74-106) mg/dL POC Glucose (70-105) mg/dL Calcium 8.8 (8.5-10.1) mg/dL Magnesium 2.4 (1.8-2.4) mg/dl Total Bilirubin 0.3 (0.2-1.0) mg/dL AST 37 (15-37) U/L ALT 38 (14-59) U/L Alkaline Phosphatase 36 L (46-116) U/L Total Protein 6.4 (6.4-8.2) g/dl Albumin 2.7 L (3.4-5.0) g/dl Globulin 3.7 gm/dL Albumin/Globulin Ratio 0.7 L (1-2) Med Orders - Current: Current Medications Acetaminophen (Acetaminophen 325 Mg/10.15 Ml Ml) 650 mg PO Q4H PRN PRN Reason: Pain/Fever Last Admin: 08/13/20 08:49 Dose: 650 mg Documented by: Enoxaparin Sodium (Enoxaparin 30 Mg/0.3 Ml Syringe) 30 mg SUBCUT DAILY [facility] Last Admin: 08/14/20 09:15 Dose: 30 mg Documented by: Insulin Human Lispro (Insulin Lispro 100 Unit/Ml) 0 unit SUBCUT 0000,0600,1200,1800 [facility]; Protocol Last Admin: 08/14/20 06:29 Dose: Not Given Documented by: Levothyroxine Sodium (Levothyroxine 50 Mcg Tab) 50 mcg PO ACBREAKFAST [facility] Last Admin: 08/14/20 05:41 Dose: 50 mcg Documented by: Omeprazole Suspension 20 Mg Own Med 20 mg PO BIDAC [facility] Last Admin: 08/14/20 09:14 Dose: 20 mg Documented by: Ondansetron HCl (Ondansetron 4 Mg/2 Ml Sdv) 4 mg IV Q4H PRN PRN Reason: Nausea/Vomiting Last Admin: 08/07/20 18:32 Dose: 4 mg Documented by: Discontinued Medications Acetaminophen (Tylenol) 650 mg PO Q4H PRN PRN Reason: Pain (Mild 1-3)/fever Sodium Chloride (Normal Saline) 1,000 mls @ 999 mls/hr IV ONETIME ONE Stop: 08/06/20 07:57 Last Admin: 08/06/20 07:21 Dose: 999 mls/hr Documented by: Dextrose/Sodium Chloride (Dextrose 5%-1/2 Ns) 1,000 mls @ 75 mls/hr IV ASDI RECTED [facility] Last Admin: 08/06/20 11:58 Dose: 75 mls/hr Documented by: Potassium Chloride/Dextrose/Sod Cl (D5 1/2 Ns W/ 20 Meq/L Kcl) 1,000 mls @ 75 mls/hr IV ASDIRECTED [facility] Last Admin: 08/06/20 23:51 Dose: 75 mls/hr Documented by: Potassium Chloride 10 meq/ (Premix) 100 mls @ 100 mls/hr IV Q1H [facility] Stop: 08/07/20 12:59 Last Admin: 08/07/20 12:54 Dose: 100 mls/hr Documented by: Magnesium Sulfate 4 gm/ Premix 50 mls @ 12.5 mls/hr IV ONETIME ONE Stop: 08/07/20 16:59 Last Admin: 08/07/20 14:14 Dose: 12.5 mls/hr Documented by: Dextrose/Water (Dextrose 5% In Water) 1,000 mls @ 100 mls/hr IV ASDIRECTED [facility] Last Admin: 08/10/20 16:06 Dose: 100 mls/hr Documented by: Sodium Chloride (Normal Saline) 500 mls @ 999 mls/hr IV ONETIME ONE Stop: 08/07/20 22:44 Last Admin: 08/07/20 22:30 Dose: 999 mls/hr Documented by: Sodium Chloride (Normal Saline) Confirm Administered Dose 1,000 mls @ as directed .ROUTE .STK-MED ONE Stop: 08/07/20 22:24 Last Admin: 08/08/20 05:39 Dose: Not Given Documented by: Sodium Chloride (Normal Saline) 500 mls @ 999 mls/hr IV .BOLUS ONE Stop: 08/08/20 18:55 Last Admin: 08/08/20 18:40 Dose: 999 mls/hr Documented by: Albumin Human (Flexbumin 25%) 12.5 gm in 50 mls @ 100 mls/hr IV ONETIME ONE Stop: 08/08/20 19:44 Last Admin: 08/08/20 21:20 Dose: 100 mls/hr Documented by: Sodium Chloride (Normal Saline) 500 mls @ 999 mls/hr IV .BOLUS ONE Stop: 08/09/20 00:14 Last Admin: 08/09/20 00:04 Dose: 999 mls/hr Documented by: Multivitamins/Minerals 10 ml/Chromium/Copper/Manganese/Zinc 1 ml/ Amino Acids/Electrolytes/Dextrose 1,011 mls @ 25 mls/hr IV ONETIME ONE Stop: 08/12/20 10:26 Last Admin: 08/10/20 18:06 Dose: 25 mls/hr Documented by: Fat Emulsion Intravenous (Intralipid 20%) 200 mls @ 25 mls/hr IV MoWeFr@1800 [facility] Last Admin: 08/10/20 18:36 Dose: 25 mls/hr Documented by: Potassium Chloride 10 meq/ (Premix) 100 mls @ 100 mls/hr IV Q1H [facility] Stop: 08/11/20 10:59 Last Admin: 08/11/20 11:05 Dose: 100 mls/hr Documented by: Multivitamins/Minerals 10 ml/Chromium/Copper/Manganese/Zinc 1 ml/ Amino Acids/Electrolytes/Dextrose 1,011 mls @ 35 mls/hr IV ONETIME ONE Stop: 08/12/20 16:53 Last Infusion: 08/12/20 05:35 Dose: 55 mls/hr Documented by: Ppn Rate Change 0 mls @ 45 mls/hr .XX ONETIME ONE Stop: 08/12/20 05:59 Last Admin: 08/11/20 18:04 Dose: 45 mls/hr Documented by: Ppn Rate Change 1,000 mls @ 55 mls/hr .XX ONETIME ONE Stop: 08/13/20 00:10 Last Admin: 08/12/20 05:43 Dose: 55 mls/hr Documented by: Potassium Chloride 10 meq/ (Premix) 100 mls @ 100 mls/hr IV Q1H [facility] Stop: 08/12/20 12:29 Last Admin: 08/12/20 11:21 Dose: Not Given Documented by: Multivitamins/Minerals 10 ml/Chromium/Copper/Manganese/Zinc 1 ml/ Amino Acids/Electrolytes/Dextrose 1,011 mls @ 55 mls/hr IV ONETIME ONE Stop: 08/13/20 05:52 Last Admin: 08/12/20 15:47 Dose: 55 mls/hr Documented by: Amino Acids/Electrolytes/Dextrose (Clinimix E 4.25/5) 1,000 mls @ 55 mls/hr IV ONETIME ONE Stop: 08/14/20 00:10 Sodium Chloride (Normal Saline) 1,000 mls @ 100 mls/hr IV ASDIRECTED [facility] Last Admin: 08/12/20 10:34 Dose: 100 mls/hr Documented by: Potassium Chloride 10 meq/ (Premix) 100 mls @ 100 mls/hr IV ONETIME ONE Stop: 08/12/20 11:59 Last Admin: 08/12/20 13:16 Dose: 100 mls/hr Documented by: Multivitamins/Minerals 10 ml/Chromium/Copper/Manganese/Zinc 1 ml/ Amino Acids/Electrolytes/Dextrose 1,011 mls @ 55 mls/hr IV ONETIME ONE Stop: 08/14/20 04:22 Last Admin: 08/13/20 11:59 Dose: 55 mls/hr Documented by: Fat Emulsion Intravenous (Intralipid 20%) 200 mls @ 25 mls/hr IV MoWeFr@1500 [facility] Last Admin: 08/13/20 15:50 Dose: 25 mls/hr Documented by: Amino Acids/Electrolytes/Dextrose (Clinimix E 4.25/5) 1,000 mls @ 55 mls/hr IV ONETIME ONE Stop: 08/15/20 00:40 Influenza Virus Vaccine (Pharmacy To Dose - Influenza Vaccine) 1 each IM ONETIME ONE Stop: 08/08/20 11:39 Influenza Virus Vaccine (Flu Vacc Vi9299-02(6mos Up)/Pf 60 Mcg/0.5 Ml Syringe) 60 mcg IM .ONCE ONE Stop: 08/08/20 12:31 Insulin Human Lispro (Insulin Lispro 100 Unit/Ml) 0 unit SUBCUT QIDACANDBED [facility]; Protocol Last Admin: 08/12/20 04:59 Dose: Not Given Documented by: Levothyroxine 50 Mcg (Ptom) 50 mcg PO ACBREAKFAST [facility] Last Admin: 08/08/20 05:40 Dose: Not Given Documented by: Pantoprazole Sodium (Pantoprazole 40 Mg Vial) 40 mg IVPUSH Q12H [facility] Last Admin: 08/13/20 10:09 Dose: 40 mg Documented by: - Exam Quality Assessment: Denies: Supplemental Oxygen General: Reports: Alert HEENT: Reports: Pupils Equal, Mucous Membr. Moist/Oliver Neck: Reports: Supple Lungs: Reports: Clear to Auscultation, Normal Respiratory Effort Cardiovascular: Reports: Regular Rate, Regular Rhythm GI/Abdominal Exam: Normal Bowel Sounds, Soft, Non-Tender, No Organomegaly, No Distention, No Abnormal Bruit, No Mass Extremities: Normal Inspection, Normal Range of Motion, Non-Tender, No Pedal Edema, Normal Capillary Refill Neurological: Reports: No New Focal Deficit Psy/Mental Status: Reports: Alert, Normal Affect, Normal Mood
== END 2020-08-14 11:54 | disposition home or self-care (01) | DRG 177 ==
LOC: JD.ED 06:12 → UNDOADMOB 08:46 → JD.MS 08:46 → INTOOBSV 08-07 11:10 → OBSVTOIN 08-07 11:10 → UNDODISIN 08-14 11:54
PROVIDERS: ADMIT Family Medicine; ATTEND Family Medicine
DX: U07.1 COVID-19 (principal); E43 Unspecified severe protein-calorie malnutrition; I31.3 Pericardial effusion (noninflammatory); I95.9 Hypotension, unspecified; Q21.1 Atrial septal defect; H54.7 Unspecified visual loss; Q21.0 Ventricular septal defect; Z68.1 Body mass index [BMI] 19.9 or less, adult; R63.0 Anorexia; I95.0 Idiopathic hypotension; I07.1 Rheumatic tricuspid insufficiency; R62.7 Adult failure to thrive; K21.00 Gastro-esophageal reflux disease with esophagitis, without bleeding; H91.90 Unspecified hearing loss, unspecified ear; I48.0 Paroxysmal atrial fibrillation; F41.9 Anxiety disorder, unspecified; F32.9 Major depressive disorder, single episode, unspecified; E06.3 Autoimmune thyroiditis; Z98.49 Cataract extraction status, unspecified eye; Z79.890 Hormone replacement therapy; Z79.899 Other long term (current) drug therapy; Q90.9 Down syndrome, unspecified
CPT/HCPCS: 36415 ×2; 80053 ×2; 83690; 83735 ×2; 84100; 85007; 85025; 85027; 96372; 96374; 96376; 97161; 97165; 99284; A9270 ×2; C9113 ×3; G0378 ×3; J1650; J3480 ×3; J7030; J7042; 36410; 80048; 82962; 83036; 85379; 85610; 85730; 86140; 93306; 99219; 99232; 99239; J2405; J3475; J7060; P9047